=== PATIENT | male | born 1980 | race Caucasian/White ===

== ENCOUNTER 2018-06-17 15:09 | Emergency (ER) | payer MEDICAID, SELFPAY ==
[2018-06-17 15:23] VITALS: BP 129/81; PULSE 88; RESP 18; TEMP 36.7; O2SAT 98
--- NOTE | 2018-06-17 16:05 | DI.RAD_ITS ---
SYMPTOMS/DIAGNOSIS: DOG BITE LEFT HAND: No foreign body or soft tissue gas is seen. The area of the dog bite is not indicated on the requisition. There is slight deformity at the base of the distal phalanx of the thumb, which may be an old deformity or could represent an acute fracture. Clinical correlation is recommended. No additional abnormalities are identified other than degenerative changes. IMPRESSION: Question of a fracture versus chronic deformity at the base of the distal phalanx of the thumb.
--- NOTE | 2018-06-17 16:06 | W.ED.GENAD ---
Discharge Plan Disposition Patient Disposition: HOME Condition: Fair Discharge Details Chief Complaint: AnimalBite Clinical Impression: Dog bite of hand Primary Care Provider: Lizandro Carl ED Provider: Martha Leon Home Meds and New Rx's Prescriptions: New amoxicillin-pot clavulanate [Augmentin] 875-125 mg tablet 1 tab PO BID Qty: 14 RF: 0 Continue atenolol 50 MG tablet 50 mg PO DAILY Qty: 90 RF: 4 fluoxetine [Prozac] 40 MG capsule 40 mg PO DAILY Qty: 90 RF: 1 lisinopril-hydrochlorothiazide 1 EACH tablet 1 tab PO DAILY RF: 0 acetaminophen-codeine [Tylenol-Codeine #3] 1 TAB tablet 1 ea PO HS Qty: 7 RF: 0 methylprednisolone 4 MG tablets,dose pack 4 mg PO DIRECTED Qty: 1 RF: 0 Discharge Instructions Instructions: Animal Bite (ED) Additional Instructions: Encourage rest, ice, elevation. Tylenol and/or ibuprofen as needed for discomfort. Please keep ring finger in a brace to help with your discomfort. Take antibiotics as prescribed. Even if symptoms improve, please take the entire course. Please follow-up with primary care within the next week for reevaluation. You will be contacted tomorrow by [facility] to discuss dog's rabies vaccination status. If you develop fever/chills, increased pain, redness, discharge or other new/worsening symptoms please seek care urgently once again. Referrals: Lizandro Carl [Primary Care Provider] - ( ) Discharge Data Discharge Date/Time-TO BE ENTERED AT DEPARTURE: 06/17/18 17:10 Medical Decision Making Patient a 37-year-old [id number] male presenting today with chief complaint of left hand.. Patient reports that, while at work, he went to pet a dog that had been jumping up and down, in attempt to help calm the dog, on the dog bit his hand. Suffered a puncture wounds to the third and fourth digits. Reports his last tetanus shot was within the last 2 years. Denies any fevers or chills. States that this occurred around 8 AM. Reports that since then he has noted increased swelling, limited range of motion and increased pain. Denies other area of injury at the time of the incident. Did not report the bite to the ulnar. Unclear if the dog is up-to-date on immunizations. They have contact information sheet for the ulnar, will contact them to find the dog's rabies vaccination status. On exam, patient does have limited range of motion. Unable to extend the digit passively without discomfort. Flexion seems palpation warmth this seems to be more from swelling. No puncture wound directly over the flexor tendon. Puncture wound is along the ulnar side of the proximal phalanx of the fourth digit. Will obtain x-rays. Patient does report that he washes out. Reports he has been drinking alcohol and does not want to have any medication. Not the patient Tylenol and ibuprofen which she declined. Dog bite was reported to health officer. 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 Given the time of night, will not have a rabies vaccine answer tonight. However, [facility] and will remained there. The kickboxing instructor was unaware that the dog had bitten the patient. Health officer will follow up with the patient in regard to rabies vaccination. I did discuss the plan should the dog not be vaccinated with the patient. He is aware that he may return here or follow-up with his primary care as instructed by health officer X-ray obtained reviewed by radiologist. The irregularity at the base of the distal phalanx of the thumb suspicious for acute fracture. No radiopaque foreign body. Discussed this finding with the patient he has not exhibited any pain in the thumb, has full range of motion and no bite near this. And I feel that this is an acute fracture of the Patient I discussed treatment options. I feel that placing him on Augmentin is appropriate at this time. He is up-to-date on tetanus. Advise close follow-up with his primary care. He was given strict return precautions. I splinted the ring finger and alirio taped to the middle finger to this. Encourage rest, ice, elevation. Advised Tylenol and/or ibuprofen as needed for discomfort. All of his questions and concerns were addressed and he is in agreement with this plan. HPI General Mode of arrival: ambulatory. Date/Time Provider Initiated Documentation: 06/17/18 15:53. Limitations to Documentation: no limitations. Information obtained by: patient and family (accompanied by ). History of Present Illness 37 year old M presents to the emergency department with the chief complaint of left ring and middle finger dog bite, described as severe, with intensity rated at 10. Quality is described as stabbing, and is localized to the left and upper extremity. Patient reports no radiation. Patient started experiencing this hour(s) (8) and it has been constant. Immobilization improves symptom(s), Movement worsens symptoms . Patient notes no other symptoms.; denies chest pain, cough, fever/chills and rash. Patient did receive the following treatments prior to arrival, none Related Data Home Medications Medication Instructions Recorded Confirmed atenolol 50 mg PO DAILY #90 tab 10/22/13 fluoxetine [Prozac] 40 mg PO DAILY #90 tab-cap 01/25/14 acetaminophen-codeine 1 ea PO HS #7 tab 10/27/14 06/07/15 [Tylenol-Codeine #3] lisinopril-hydrochlorothiazide 1 tab PO DAILY 10/27/14 06/07/15 methylprednisolone 4 mg PO DIRECTED #1 pkt 10/27/14 06/07/15 amoxicillin-pot clavulanate 1 tab PO BID #14 tab 06/17/18 [Augmentin] Previous Rx's Medication Instructions Recorded acetaminophen-codeine 1 ea PO HS #7 tab 10/27/14 [Tylenol-Codeine #3] methylprednisolone 4 mg PO DIRECTED #1 pkt 10/27/14 amoxicillin-pot clavulanate 1 tab PO BID #14 tab 06/17/18 [Augmentin] Allergies Allergy/AdvReac Type Severity Reaction Status Date / Time morphine Allergy Unknown Unverified 10/27/14 09:53 hydromorphone HCl AdvReac Severe Visual Unverified 10/27/14 09:53 [From Dilaudid] Disturbances aspirin AdvReac HEARTBURN Unverified 10/27/14 09:53 sertraline AdvReac NAUSEA Unverified 10/27/14 09:53 General Stated Complaint: AnimalBite MILTON: 4 Review of Systems Constitutional Reports as per HPI Cardiovascular Reports as per HPI Respiratory Denies cough Gastrointestinal Denies nausea and Denies vomiting Musculoskeletal Reports as per HPI, Denies numbness and Denies tingling Integumentary/Breasts Reports as per HPI Neurologic Denies numbness and Denies tingling PFSH Social History Smoking/Tobacco Use Status: Current every day Surgical History knee surgery Exam Const General: cooperative, healthy appearing, comfortable, no acute distress, well developed and well groomed Nutritional Appearance: average body habitus and well nourished Orientation: alert and awake Resp Effort & Inspection: normal respiratory effort, able to speak in complete sentences and no respiratory distress Auscultation: clear to auscultation bilaterally, no rales, no rhonchi and no wheezes Cardio Rate: regular rate Rhythm: regular rhythm Heart Sounds: S1 normal and S2 normal Skin General skin exam: no ecchymosis and no erythema Trauma: puncture (Patient has 3 puncture wounds, two on the left ring finger and one on the dorsum of the middle finger. Entirety of the two digits are swollen. limited ROM. No passive ROM pain. Pain with active flexion and extension. Is able to flex and extend against resistance at MCP, PIP and DIP. ) and other (No surrounding erythema, no discharge. Fingers are minimally warm compared to the others) Neuro General: alert and awake Cognition: normal cognition Speech: speech normal Gait: normal gait Sensory Exam: no sensory deficits noted (2 point intact on affected digits) Extrem Left upper extremity: normal capillary refill; abnormal to inspection (as above) and no cyanosis Psych Appearance: grossly normal and well kempt Mental Status: mental status grossly normal Speech and Movement: speech and movement normal Course Vital Signs Temperature 36.7 C 06/17/18 15:23 Pulse 88 06/17/18 15:23 Respiratory Rate 18 06/17/18 15:23 Blood Pressure 129/81 06/17/18 15:23 Pulse Oximetry 98 06/17/18 15:23 Temperature 36.7 C 06/17/18 15:23 Temperature Source Temporal Artery Scan 06/17/18 15:23 Pulse 88 06/17/18 15:23 Respiratory Rate 18 06/17/18 15:23 Respiratory Effort 06/17/18 15:27 Blood Pressure 129/81 06/17/18 15:23 Blood Pressure Position Sitting 06/17/18 15:23 Pulse Oximetry 98 06/17/18 15:23 Oxygen Delivery Method Room Air 06/17/18 15:23 Oxygen Flow Rate 0 06/17/18 15:23 Pain Level 10 06/17/18 15:23
--- NOTE | 2018-06-17 16:09 | ED.GENADUL_ITS ---
Discharge Plan Disposition Patient Disposition: HOME Condition: Fair Discharge Details Chief Complaint: AnimalBite Clinical Impression: Dog bite of hand Primary Care Provider: Lizandro Carl ED Provider: Martha Leon Home Meds and New Rx's Prescriptions: New amoxicillin-pot clavulanate [Augmentin] 875-125 mg tablet 1 tab PO BID Qty: 14 RF: 0 Continue atenolol 50 MG tablet 50 mg PO DAILY Qty: 90 RF: 4 fluoxetine [Prozac] 40 MG capsule 40 mg PO DAILY Qty: 90 RF: 1 lisinopril-hydrochlorothiazide 1 EACH tablet 1 tab PO DAILY RF: 0 acetaminophen-codeine [Tylenol-Codeine #3] 1 TAB tablet 1 ea PO HS Qty: 7 RF: 0 methylprednisolone 4 MG tablets,dose pack 4 mg PO DIRECTED Qty: 1 RF: 0 Discharge Instructions Instructions: Animal Bite (ED) Additional Instructions: Encourage rest, ice, elevation. Tylenol and/or ibuprofen as needed for discomfort. Please keep ring finger in a brace to help with your discomfort. Take antibiotics as prescribed. Even if symptoms improve, please take the entire course. Please follow-up with primary care within the next week for reevaluation. You will be contacted tomorrow by [facility] to discuss dog' s rabies vaccination status. If you develop fever/chills, increased pain, redness, discharge or other new/worsening symptoms please seek care urgently once again. Referrals: Lizandro Carl [Primary Care Provider] - ( ) Discharge Data Discharge Date/Time-TO BE ENTERED AT DEPARTURE: 06/17/18 17:10 Medical Decision Making Patient a 37-year-old [id number] male presenting today with chief complaint of left hand.. Patient reports that, while at work, he went to pet a dog that had been jumping up and down, in attempt to help calm the dog, on the dog bit his hand. Suffered a puncture wounds to the third and fourth digits. Reports his last tetanus shot was within the last 2 years. Denies any fevers or chills. States that this occurred around 8 AM. Reports that since then he has noted increased swelling, limited range of motion and increased pain. Denies other area of injury at the time of the incident. Did not report the bite to the ulnar. Unclear if the dog is up-to-date on immunizations. They have contact information sheet for the ulnar, will contact them to find the dog' s rabies vaccination status. On exam, patient does have limited range of motion. Unable to extend the digit passively without discomfort. Flexion seems palpation warmth this seems to be more from swelling. No puncture wound directly over the flexor tendon. Puncture wound is along the ulnar side of the proximal phalanx of the fourth digit. Will obtain x-rays. Patient does report that he washes out. Reports he has been drinking alcohol and does not want to have any medication. Not the patient Tylenol and ibuprofen which she declined. Dog bite was reported to health officer. 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 Given the time of night, will not have a rabies vaccine answer tonight. However, [facility] is in [facility] and will remained there. The weight control engineer was unaware that the dog had bitten the patient. Health officer will follow up with the patient in regard to rabies vaccination. I did discuss the plan should the dog not be vaccinated with the patient. He is aware that he may return here or follow-up with his primary care as instructed by health officer X-ray obtained reviewed by radiologist. The irregularity at the base of the distal phalanx of the thumb suspicious for acute fracture. No radiopaque foreign body. Discussed this finding with the patient he has not exhibited any pain in the thumb, has full range of motion and no bite near this. And I feel that this is an acute fracture of the Patient I discussed treatment options. I feel that placing him on Augmentin is appropriate at this time. He is up-to-date on tetanus. Advise close follow-up with his primary care. He was given strict return precautions. I splinted the ring finger and alirio taped to the middle finger to this. Encourage rest, ice, elevation. Advised Tylenol and/or ibuprofen as needed for discomfort. All of his questions and concerns were addressed and he is in agreement with this plan. HPI General Mode of arrival: ambulatory . Date/Time Provider Initiated Documentation: 06/17/18 15:53 . Limitations to Documentation: no limitations . Information obtained by: patient and family (accompanied by ) . History of Present Illness 37 year old M presents to the emergency department with the chief complaint of left ring and middle finger dog bite, described as severe, with intensity rated at 10. Quality is described as stabbing, and is localized to the left and upper extremity. Patient reports no radiation. Patient started experiencing this hour(s) (8) and it has been constant. Immobilization improves symptom(s), Movement worsens symptoms . Patient notes no other symptoms.; denies chest pain, cough, fever/chills and rash. Patient did receive the following treatments prior to arrival, none Related Data Home Medications Medication Instructions Recorded Confirmed atenolol 50 mg PO DAILY #90 tab 10/22/13 fluoxetine [Prozac] 40 mg PO DAILY #90 tab-cap 01/25/14 acetaminophen-codeine 1 ea PO HS #7 tab 10/27/14 06/07/15 [Tylenol-Codeine #3] lisinopril-hydrochlorothiazide 1 tab PO DAILY 10/27/14 06/07/15 methylprednisolone 4 mg PO DIRECTED #1 pkt 10/27/14 06/07/15 amoxicillin-pot clavulanate 1 tab PO BID #14 tab 06/17/18 [Augmentin] Previous Rx's Medication Instructions Recorded acetaminophen-codeine 1 ea PO HS #7 tab 10/27/14 [Tylenol-Codeine #3] methylprednisolone 4 mg PO DIRECTED #1 pkt 10/27/14 amoxicillin-pot clavulanate 1 tab PO BID #14 tab 06/17/18 [Augmentin] Allergies Allergy/AdvReac Type Severity Reaction Status Date / Time morphine Allergy Unknown Unverified 10/27/14 09:53 hydromorphone HCl AdvReac Severe Visual Unverified 10/27/14 09:53 [From Dilaudid] Disturbances aspirin AdvReac HEARTBURN Unverified 10/27/14 09:53 sertraline AdvReac NAUSEA Unverified 10/27/14 09:53 General Stated Complaint: AnimalBite MILTON: 4 Review of Systems Constitutional Reports as per HPI Cardiovascular Reports as per HPI Respiratory Denies cough Gastrointestinal Denies nausea and Denies vomiting Musculoskeletal Reports as per HPI, Denies numbness and Denies tingling Integumentary/Breasts Reports as per HPI Neurologic Denies numbness and Denies tingling PFSH Social History Smoking/Tobacco Use Status: Current every day Surgical History knee surgery Exam Const General: cooperative, healthy appearing, comfortable, no acute distress, well developed and well groomed Nutritional Appearance: average body habitus and well nourished Orientation: alert and awake Resp Effort & Inspection: normal respiratory effort, able to speak in complete sentences and no respiratory distress Auscultation: clear to auscultation bilaterally, no rales, no rhonchi and no wheezes Cardio Rate: regular rate Rhythm: regular rhythm Heart Sounds: S1 normal and S2 normal Skin General skin exam: no ecchymosis and no erythema Trauma: puncture (Patient has 3 puncture wounds, two on the left ring finger and one on the dorsum of the middle finger. Entirety of the two digits are swollen. limited ROM. No passive ROM pain. Pain with active flexion and extension. Is able to flex and extend against resistance at MCP, PIP and DIP. ) and other (No surrounding erythema, no discharge. Fingers are minimally warm compared to the others) Neuro General: alert and awake Cognition: normal cognition Speech: speech normal Gait: normal gait Sensory Exam: no sensory deficits noted (2 point intact on affected digits) Extrem Left upper extremity: normal capillary refill; abnormal to inspection (as above ) and no cyanosis Psych Appearance: grossly normal and well kempt Mental Status: mental status grossly normal Speech and Movement: speech and movement normal Course Vital Signs Temperature 36.7 C 06/17/18 15:23 Pulse 88 06/17/18 15:23 Respiratory Rate 18 06/17/18 15:23 Blood Pressure 129/81 06/17/18 15:23 Pulse Oximetry 98 06/17/18 15:23 Temperature 36.7 C 06/17/18 15:23 Temperature Source Temporal Artery Scan 06/17/18 15:23 Pulse 88 06/17/18 15:23 Respiratory Rate 18 06/17/18 15:23 Respiratory Effort 06/17/18 15:27 Blood Pressure 129/81 06/17/18 15:23 Blood Pressure Position Sitting 06/17/18 15:23 Pulse Oximetry 98 06/17/18 15:23 Oxygen Delivery Method Room Air 06/17/18 15:23 Oxygen Flow Rate 0 06/17/18 15:23 Pain Level 10 06/17/18 15:23
--- NOTE | 2018-06-17 16:53 | DI.VRAD_ITS ---
EXAM: XR Left Hand Complete, 3 or more Views EXAM DATE/TIME: 06/17/2018 4:36 PM CLINICAL HISTORY: 37 years old, male; Signs and symptoms; Other: Dog bite TECHNIQUE: XR Left hand 3 or more views. COMPARISON: No relevant prior studies available. FINDINGS: Bones/joints: There is irregularity at the base of distal phalanx of the thumb. Soft tissues: No radiopaque foreign body. Mild soft tissue swelling of the thumb. IMPRESSION: 1. Irregularity at the base of the distal phalanx of the thumb suspicious for acute fracture. 2. No radiopaque foreign body. Dictated and Authenticated by: Jesse Ramirez MD. Ordering:MARIA LUZ HAYES MD
[2018-06-17] MEDS: Amoxicillin 875/Clav. 125 TAB PO (17:15)
[2018-06-17 17:24] VITALS: BP 129/81; PULSE 88; RESP 18; TEMP 36.7; O2SAT 98
--- NOTE | 2018-06-18 18:19 | NUR.NOTE ---
Nursing Note: Spoke with [facility] Officer for [place]. She was given the information and will follow up on it. Animal Bite Report form faxed to [facility]. Sugey Pham [phone]
== END 2018-06-17 17:10 | disposition home or self-care (01) ==
PROVIDERS: Emergency Provider Physician Assistant; PCP Specialist/Technologist Athletic Trainer
DX: S61.255A Open bite of left ring finger without damage to nail, initial encounter (principal); S61.253A Open bite of left middle finger without damage to nail, initial encounter; W54.0XXA Bitten by dog, initial encounter; I10 Essential (primary) hypertension
CPT/HCPCS: 29130; 99283; 73130

== ENCOUNTER 2018-09-20 16:35 | Emergency (ER) | payer MEDICAID, SELFPAY ==
[2018-09-20 17:20] VITALS: BP 129/94; PULSE 72; RESP 16; TEMP 37; O2SAT 98
[2018-09-20] MEDS: Lidocaine/Epinephri/Tetracaine Topical Gel 3 ML TP (17:20)
--- NOTE | 2018-09-20 18:29 | W.ED.GENAD ---
Discharge Plan Disposition Patient Disposition: HOME Discharge Details Chief Complaint: Laceration Clinical Impression: Laceration of hand, left Reason For Visit: left hand laceration Primary Care Provider: Lizandro Carl ED Provider: Krishna Canales Home Meds and New Rx's Prescriptions: Continued atenolol 50 MG tablet 50 mg PO DAILY Qty: 90 RF: 4 fluoxetine [Prozac] 40 MG capsule 40 mg PO DAILY Qty: 90 RF: 1 lisinopril-hydrochlorothiazide 1 EACH tablet 1 tab PO DAILY RF: 0 No Action hydrochlorothiazide 12.5 mg tablet 12.5 mg PO DAILY RF: 0 bupropion HCl [Wellbutrin SR] 150 mg tablet sustained-release 12 hr 150 mg PO DAILY RF: 0 Discharge Instructions Instructions: Laceration (ED) Additional Instructions: Please keep dressing intact for the next 3 days. Change dressing and apply topical [id number] antibotic (like neosporin) daily thereafter and monitor for signs of infection. NO USE OF LEFT HAND UNTIL CLEARED. Please follow-up with orthopedics for reassessment. Call on Saturday. Sutures will need to be removed in about 12 days. Return to the ER sooner for any worsening or new concerning symptoms. Referrals: Dariusz Morris MD [ [facility] STAFF PHYSICIAN] - Discharge Data Discharge Date/Time-TO BE ENTERED AT DEPARTURE: 09/20/18 18:31 Medical Decision Making 37-year-old male here with left hand palmar laceration over fourth and fifth MCPs. Flexor tendon strength intact both FDP and FDS. Sensation intact including two-point discrimination. Patient did have some clicking on flexion of the fifth digit over MCP and significant discomfort when he extended his fifth digit at the MCP. Wound irrigated with copious sterile saline. Wound explored and no foreign body present. Deep structures not identified. Primary closure performed without complication. Bulky dressing applied. Last tetanus immunization 2011. Patient was advised to follow-up with orthopedics given discomfort and clicking with concern for possible partial flexor tendon tear versus injury to flexor tendon alon A1. Bulky dressing applied and patient advised to not use hand until cleared. HPI General Mode of arrival: ambulatory. Date/Time Provider Initiated Documentation: 09/20/18 17:14. Limitations to Documentation: no limitations. Information obtained by: patient. HPI Narrative: 37-year-old male here with left hand palmar laceration over fourth and fifth MCPs. Laceration occurred just prior to arrival. Patient notes he cut it on metal chimney flashing through glove. Wound has been bleeding. Laceration severe. No modifiers. Related Data Home Medications Medication Instructions Recorded Confirmed atenolol 50 mg PO DAILY #90 tab 10/22/13 09/24/18 fluoxetine [Prozac] 40 mg PO DAILY #90 tab-cap 01/25/14 09/24/18 lisinopril-hydrochlorothiazide 1 tab PO DAILY 10/27/14 09/24/18 bupropion HCl SR 150 mg tablet,12 150 mg PO DAILY 09/24/18 09/24/18 hr sustained-release hydrochlorothiazide 12.5 mg tablet 12.5 mg PO DAILY 09/24/18 09/24/18 Allergies Allergy/AdvReac Type Severity Reaction Status Date / Time morphine Allergy Unknown Unverified 09/24/18 10:12 hydromorphone HCl AdvReac Severe Visual Unverified 09/24/18 10:12 [From Dilaudid] Disturbances aspirin AdvReac HEARTBURN Unverified 09/24/18 10:12 sertraline AdvReac NAUSEA Unverified 09/24/18 10:12 General Stated Complaint: Laceration MILTON: 3 Review of Systems Integumentary/Breasts Reports wounds (Laceration noted) Neurologic Denies paresthesias [facility] Surgical History knee surgery Social History Smoking and Tabacco status: Current every day Exam Const General: cooperative Orientation: alert and awake Cardio Pulses: radial pulses present on the left 2+ Skin Wounds: wounds noted (laceration as noted below) Extrem Other: left hand 2cm palmar laceration over fourth and fifth MCPs palmar, clicking noted with flexion, distal sensation 2pt discrimination intact Course Vital Signs Temperature 37 C 09/20/18 17:20 Pulse 72 09/20/18 17:20 Respiratory Rate 16 09/20/18 17:20 Blood Pressure 129/94 H 09/20/18 17:20 Pulse Oximetry 98 09/20/18 17:20 Temperature 37 C 09/20/18 17:20 Temperature Source Skin 09/20/18 17:20 Pulse 72 09/20/18 17:20 Respiratory Rate 16 01/26/19 17:20 Respiratory Effort Non-Labored 09/20/18 17:20 Blood Pressure 129/94 H 09/20/18 17:20 Blood Pressure Position Sitting 09/20/18 17:20 Pulse Oximetry 98 09/20/18 17:20 Oxygen Delivery Method Room Air 09/20/18 17:20 Oxygen Flow Rate 0 09/20/18 17:20 Pain Level 3 09/20/18 17:20 Procedures Laceration Laceration 1: Site: hand Side (If applicable): left Size (cm): 2 Description: linear and irregular Depth: simple, single layer Local Anesthetic: other anesthetic (LET) Pre-repair: wound explored, irrigated extensively and deep structures intact Skin layer closed with: other (prolene) Size (cm): 5-0 Number of sutures: 5
--- NOTE | 2018-09-20 18:33 | ED.GENADUL_ITS ---
Discharge Plan Disposition Patient Disposition: HOME Discharge Details Chief Complaint: Laceration Clinical Impression: Laceration of hand, left Reason For Visit: left hand laceration Primary Care Provider: Lizandro Carl ED Provider: Krishna Canales Home Meds and New Rx's Prescriptions: Continued atenolol 50 MG tablet 50 mg PO DAILY Qty: 90 RF: 4 fluoxetine [Prozac] 40 MG capsule 40 mg PO DAILY Qty: 90 RF: 1 lisinopril-hydrochlorothiazide 1 EACH tablet 1 tab PO DAILY RF: 0 No Action hydrochlorothiazide 12.5 mg tablet 12.5 mg PO DAILY RF: 0 bupropion HCl [Wellbutrin SR] 150 mg tablet sustained-release 12 hr 150 mg PO DAILY RF: 0 Discharge Instructions Instructions: Laceration (ED) Additional Instructions: Please keep dressing intact for the next 3 days. Change dressing and apply top ical [id number] antibotic (like neosporin) daily thereafter and monitor for signs of infection. NO USE OF LEFT HAND UNTIL CLEARED. Please follow-up with orthopedics for reassessment. Call on Saturday. Sutures will need to be removed in about 12 days. Return to the ER sooner for any worsening or new concerning symptoms. Referrals: Dariusz Morris MD [ [facility] STAFF PHYSICIAN] - Discharge Data Discharge Date/Time-TO BE ENTERED AT DEPARTURE: 09/20/18 18:31 Medical Decision Making 37-year-old male here with left hand palmar laceration over fourth and fifth MCPs. Flexor tendon strength intact both FDP and FDS. Sensation intact including two-point discrimination. Patient did have some clicking on flexion of the fifth digit over MCP and significant discomfort when he extended his fifth digit at the MCP. Wound irrigated with copious sterile saline. Wound explored and no foreign body present. Deep structures not identified. Primary closure performed without complication. Bulky dressing applied. Last tetanus immunization 2011. Patient was advised to follow-up with orthopedics given discomfort and clicking with concern for possible partial flexor tendon tear versus injury to flexor tendon alon A1. Bulky dressing applied and patient advised to not use hand until cleared. HPI General Mode of arrival: ambulatory . Date/Time Provider Initiated Documentation: 09/20/18 17:14 . Limitations to Documentation: no limitations . Information obtained by: patient . HPI Narrative: 37-year-old male here with left hand palmar laceration over fourth and fifth MCPs. Laceration occurred just prior to arrival. Patient notes he cut it on metal chimney flashing through glove. Wound has been bleeding. Laceration severe. No modifiers. Related Data Home Medications Medication Instructions Recorded Confirmed atenolol 50 mg PO DAILY #90 tab 10/22/13 09/24/18 fluoxetine [Prozac] 40 mg PO DAILY #90 tab-cap 01/25/14 09/24/18 lisinopril-hydrochlorothiazide 1 tab PO DAILY 10/27/14 09/24/18 bupropion HCl SR 150 mg tablet,12 150 mg PO DAILY 09/24/18 09/24/18 hr sustained-release hydrochlorothiazide 12.5 mg tablet 12.5 mg PO DAILY 09/24/18 09/24/18 Allergies Allergy/AdvReac Type Severity Reaction Status Date / Time morphine Allergy Unknown Unverified 09/24/18 10:12 hydromorphone HCl AdvReac Severe Visual Unverified 09/24/18 10:12 [From Dilaudid] Disturbances aspirin AdvReac HEARTBURN Unverified 09/24/18 10:12 sertraline AdvReac NAUSEA Unverified 09/24/18 10:12 General Stated Complaint: Laceration MILTON: 3 Review of Systems Integumentary/Breasts Reports wounds (Laceration noted) Neurologic Denies paresthesias [facility] Surgical History knee surgery Social History Smoking and Tabacco status: Current every day Exam Const General: cooperative Orientation: alert and awake Cardio Pulses: radial pulses present on the left 2+ Skin Wounds: wounds noted (laceration as noted below) Extrem Other: left hand 2cm palmar laceration over fourth and fifth MCPs palmar, clicking noted with flexion, distal sensation 2pt discrimination intact Course Vital Signs Temperature 37 C 09/20/18 17:20 Pulse 72 09/20/18 17:20 Respiratory Rate 16 09/20/18 17:20 Blood Pressure 129/94 H 09/20/18 17:20 Pulse Oximetry 98 09/20/18 17:20 Temperature 37 C 09/20/18 17:20 Temperature Source Skin 09/20/18 17:20 Pulse 72 09/20/18 17:20 Respiratory Rate 16 09/20/18 17:20 Respiratory Effort Non-Labored 09/20/18 17:20 Blood Pressure 129/94 H 09/20/18 17:20 Blood Pressure Position Sitting 09/20/18 17:20 Pulse Oximetry 98 09/20/18 17:20 Oxygen Delivery Method Room Air 09/20/18 17:20 Oxygen Flow Rate 0 09/20/18 17:20 Pain Level 3 09/20/18 17:20 Procedures Laceration Laceration 1: Site: hand Side (If applicable): left Size (cm): 2 Description: linear and irregular Depth: simple, single layer Local Anesthetic: other anesthetic (LET) Pre-repair: wound explored, irrigated extensively and deep structures intact Skin layer closed with: other (prolene) Size (cm): 5-0 Number of sutures: 5
== END 2018-09-20 18:31 | disposition home or self-care (01) ==
PROVIDERS: Emergency Provider Student in an Organized Health Care Education/Training Program; PCP Specialist/Technologist Athletic Trainer
DX: S61.412A Laceration without foreign body of left hand, initial encounter (principal); W26.8XXA Contact with other sharp object(s), not elsewhere classified, initial encounter; I10 Essential (primary) hypertension
CPT/HCPCS: 12001

== ENCOUNTER 2019-01-27 02:05 | Outpatient (CLI) | payer MEDICAID, SELFPAY ==
[2019-01-27 11:07] LABS: Anion Gap 8.4 mmol/L (3-11); BUN 13 mg/dL (7-18); CO2 28.6 mmol/L (21.0-32.0); Calcium 9.2 mg/dL (8.5-10.1); Chloride 104 mmol/L (98-107); Glucose 110 mg/dL (70-100); Potassium 4.5 mmol/L (3.5-5.1); Sodium 141 mmol/L (136-145)
== END 2019-01-27 02:25 ==
PROVIDERS: PCP Specialist/Technologist Athletic Trainer; Visit Provider Specialist/Technologist Athletic Trainer
DX: I10 Essential (primary) hypertension (principal)
CPT/HCPCS: 36415; 80048

== ENCOUNTER 2019-02-06 08:37 | Emergency (ER) | payer MEDICAID, SELFPAY ==
[2019-02-06 08:41] VITALS: BP 143/95; PULSE 77; RESP 16; TEMP 36.6; O2SAT 100
--- NOTE | 2019-02-06 09:07 | ED.GENADUL_ITS ---
Discharge Plan Disposition Patient Disposition: HOME Condition: Improving Discharge Details Chief Complaint: Abd Prob Clinical Impression: Diverticulitis Primary Care Provider: Lizandro Carl ED Provider: Santhosh Rivera Home Meds and New Rx's Prescriptions: New ciprofloxacin HCl 500 mg tablet 500 mg PO BID Qty: 14 RF: 0 metronidazole 500 mg tablet 500 mg PO TID 7 Days Qty: 21 RF: 0 Continued hydrochlorothiazide 12.5 mg tablet 12.5 mg PO DAILY RF: 0 bupropion HCl [Wellbutrin SR] 150 mg tablet sustained-release 12 hr 150 mg PO DAILY RF: 0 atenolol 50 MG tablet 50 mg PO DAILY Qty: 90 RF: 4 fluoxetine [Prozac] 40 MG capsule 40 mg PO DAILY Qty: 90 RF: 1 lisinopril 20 mg Tablet 20 mg PO DAILY RF: 0 Discharge Instructions Instructions: Diverticulitis (ED), Diverticulitis Diet (ED) Additional Instructions: Return immediately to the emergency department for new or worsening symptoms otherwise follow-up with your primary care provider as needed for reassessment or if not improving Referrals: Lizandro Carl [Primary Care Provider] - 1 week ( for reassessment or if not improving) Discharge Data Discharge Date/Time-TO BE ENTERED AT DEPARTURE: 02/06/19 12:00 Medical Decision Making Patient presenting to the emergency department with chief complaint of abdominal pain that started 3 days ago and is worsening. Physical exam shows tenderness to right and left lower quadrants otherwise soft abdomen with normal active bowel sounds. Plan to do labs and CT imaging. Pending results patient given Zofran and morphine. Review of labs show leukocytosis and otherwise nondiagnostic CMP. Review of CT imaging and speak with radiologist reveals diverticulitis. Patient does not have abscess or perforation so placed up on Cipro Flagyl. Pending discharge patient continued to have some abdominal discomfort so was given ketorolac. Return precautions discussed. After discussion of diagnosis and plan of care patient has no further needs, questions, or concerns and states clear understanding to return to the emergency department for any worsening symptoms. HPI General Mode of arrival: ambulatory . Date/Time Provider Initiated Documentation: 02/06/19 08:39 . Limitations to Documentation: no limitations . Information obtained by: patient, family and RN notes reviewed . History of Present Illness 38 year old M presents to the emergency department with the chief complaint of Umbilical abdominal pain, described as moderate, with intensity rated at 6. Quality is described as aching and sharp, and is localized to the abdomen. Patient started experiencing this day(s) (3) and it has been constant. No exacerbating factors reported . Patient did receive the following treatments prior to arrival, none Related Data Home Medications Medication Instructions Recorded Confirmed atenolol 50 mg PO DAILY #90 tab 10/22/13 02/06/19 fluoxetine [Prozac] 40 mg PO DAILY #90 tab-cap 01/25/14 02/06/19 bupropion HCl SR 150 mg tablet,12 150 mg PO DAILY 09/24/18 02/06/19 hr sustained-release hydrochlorothiazide 12.5 mg tablet 12.5 mg PO DAILY 09/24/18 02/06/19 ciprofloxacin HCl 500 mg PO BID #14 tab 02/06/19 lisinopril 20 mg PO DAILY 02/06/19 02/06/19 metronidazole 500 mg PO TID 7 Days #21 tab 02/06/19 Previous Rx's Medication Instructions Recorded ciprofloxacin HCl 500 mg PO BID #14 tab 02/06/19 metronidazole 500 mg PO TID 7 Days #21 tab 02/06/19 Allergies Allergy/AdvReac Type Severity Reaction Status Date / Time morphine Allergy Unknown Unverified 09/24/18 10:12 hydromorphone HCl AdvReac Severe Visual Unverified 09/24/18 10:12 [From Dilaudid] Disturbances aspirin AdvReac HEARTBURN Unverified 09/24/18 10:12 sertraline AdvReac NAUSEA Unverified 09/24/18 10:12 General Stated Complaint: Abd Prob MILTON: 3 Review of Systems Constitutional Denies chills, Denies fever(s) and Denies poor appetite Cardiovascular Denies chest pain and Denies dyspnea Respiratory Denies cough and Denies dyspnea Gastrointestinal Reports as per HPI, Reports abdominal pain, Denies melena, Denies change in bowel habits, Denies constipation, Denies diarrhea, Reports nausea and Denies vomiting Genitourinary Denies hematuria, Denies difficulty urinating, Denies urinary hesitancy, Denies urinary incontinence and Denies urinary urgency Integumentary/Breasts Denies rash PFSH Surgical History knee surgery Social History Smoking/Tobacco Use Status: Current every day Tobacco Type: cigarettes Smoking cigarettes per day: 10 Alcohol Intake: current Alcohol Intake frequency: 0-2 drinks per day Alcohol type: beer Drug use: Never Substance use type: does not use Do you feel safe at home: Yes Do you feel safe in your relationship?: Yes Exam Const General: cooperative Orientation: alert, awake and oriented x3 Resp Effort & Inspection: normal respiratory effort and able to speak in complete sentences Auscultation: clear to auscultation bilaterally Cardio Rate: regular rate Rhythm: regular rhythm Heart Sounds: S1 normal and S2 normal GI Inspection: normal to inspection Palpation: soft, no hepatosplenomegaly, not firm, no guarding, no masses, no pulsatile masses, not rigid, no splenomegaly and tender in the epigastrum, in the LLQ and in the RLQ; not at McBurney's point, Vazquez's sign negative, with no rebound tenderness and Rovsing's sign negative Auscultation: normal bowel sounds Back/Spine/Pelvis Back: no CVA tenderness Neuro General: alert, awake, oriented x3, gait normal and moves all extremities Course Vital Signs Temperature 36.6 C 02/06/19 08:41 Pulse 77 02/06/19 08:41 Respiratory Rate 16 02/06/19 08:41 Blood Pressure 143/95 H 02/06/19 08:41 Pulse Oximetry 100 02/06/19 08:41 Temperature 36.6 C 02/06/19 08:41 Temperature Source Skin 02/06/19 08:41 Pulse 77 02/06/19 08:41 Respiratory Rate 16 02/06/19 08:41 Respiratory Effort Non-Labored 02/06/19 08:45 Blood Pressure 143/95 H 02/06/19 08:41 Blood Pressure Position Sitting 02/06/19 08:41 Pulse Oximetry 100 02/06/19 08:41 Oxygen Delivery Method Room Air 02/06/19 08:41 Oxygen Flow Rate 0 02/06/19 08:41 Pain Level 8 02/06/19 08:41
[2019-02-06 09:13] LABS: Abs Immature Grans 0.03 k/cumm (0.0-0.09); Absolute Eosinophil Count 0.12 k/cumm (0.0-0.7); Absolute Lymphocyte Count 1.22 k/cumm (1.2-3.4); Absolute Monocyte Count 1.11 k/cumm (0.11-0.7); Absolute Neutrophil Count 10.31 k/cumm (1.2-6.7); Basophils % 0.2; Eosinophils % 0.9; HCT 41.3 % (40.0-50.0); HGB 14.3 g/dL (13.5-17.5); Immature Grans % 0.2; Lymphocytes % 9.5; Mean Corp. HGB Concentration 34.6 g/dL (32.0-36.0); Mean Corpuscular Volume 98.3 fL (80-95); Mean Platelet Volume 9.3 fL (8.0-11.0); Monocytes % 8.7; Neutrophils % 80.5; Platelet Count 259 x1000/uL (130-400); RBC Distribution Width 12.1 % (11.8-14.1); White Blood Cell Count 12.81 k/cumm (4.4-10.8)
[2019-02-06 09:14] LABS: Absolute Basophil Count 0.03 k/cumm (0.0-0.2)
[2019-02-06] MEDS: Normal Saline 1,000 ML 500 ML IV (09:14)
[2019-02-06] MEDS: Ondansetron 4 MG/2 ML VIAL IVP (09:15)
[2019-02-06 09:28] LABS: ALT 22 U/L (12-78); AST 18 U/L (15-37); Albumin 3.6 g/dL (3.4-5.0); Alkaline Phosphatase 85 U/L (46-116); Anion Gap 12.4 mmol/L (3-11); BUN 9 mg/dL (7-18); Bilirubin, Total 0.8 mg/dL (0.2-1.0); CO2 25.6 mmol/L (21.0-32.0); CREATININE 1.06 mg/dL (0.70-1.30); Calcium 9.4 mg/dL (8.5-10.1); Chloride 101 mmol/L (98-107); Glucose 112 mg/dL (70-100); Lipase 87 U/L (73-393); Potassium 4.2 mmol/L (3.5-5.1); Sodium 139 mmol/L (136-145); Total Protein 7.7 g/dL (6.4-8.2)
[2019-02-06] MEDS: Omnipaque 350 MG/ML 50 ML BTL IJ (10:36)
[2019-02-06] MEDS: Omnipaque 350 MG/ML 100 ML BTL IJ (10:36)
[2019-02-06] MEDS: Breeza Beverage 473 ML BTL PO (10:37)
--- NOTE | 2019-02-06 10:40 | DI.CT_ITS ---
SYMPTOM/DIAGNOSIS: AD PAIN CT ABDOMEN AND PELVIS: Routine examination was performed. Intravenous and oral contrast was administered. Comparison is 11/16/16 The visualized lung bases are clear There is no evidence of an hepatic mass. The portal, superior mesenteric and splenic veins are patent. The gallbladder is negative. There is no biliary ductal dilatation present. The pancreas and spleen are unremarkable as are the adrenal glands. The kidneys show normal and symmetric enhancement. There is scarring of the right kidney. No evidence of a solid renal mass or obstruction is identified. The urinary bladder is intact. The reproductive organs are unremarkable. The abdominal aorta is of normal caliber. No significant abdominal or pelvic adenopathy is seen. There is no pneumoperitoneum. There is diverticulosis seen in the sigmoid colon. There is bowel wall thickening seen in the proximal sigmoid colon with pericolonic inflammatory changes consistent with acute diverticulitis. There is a trace amount of free fluid in the pelvis. No pneumoperitoneum is seen. The remainder of the bowel is unremarkable. No findings to suggest an acute appendicitis are present. Normal appendix is seen in the right lower quadrant. Degenerative changes are seen in the spine. IMPRESSION: Findings consistent with acute sigmoid diverticulitis. No evidence of abscess or free air. The findings were discussed with the Emergency Department on the date of the examination.
[2019-02-06] MEDS: Ketorolac 30 MG/ML VIAL (11:02)
[2019-02-06] MEDS: Ciprofloxacin 500 MG TAB PO (11:19)
[2019-02-06] MEDS: metroNIDAZOLE 500 MG TAB PO (11:19)
[2019-02-06 11:21] LABS: Bilirubin Negative (Negative); Blood Negative (Negative); Clarity Clear; Glucose Negative (Negative); Ketones Negative (Negative); Leukocyte Esterase Negative (Negative); Nitrite Negative (Negative); Specific Gravity 1.015 (1.005-1.025); Urobilinogen 0.2 EU/dL (Up TO 0.2); pH 5.5 (5-8)
[2019-02-06 12:08] VITALS: BP 141/96; PULSE 74; RESP 16; TEMP 36.6; O2SAT 100
== END 2019-02-06 12:00 | disposition home or self-care (01) ==
PROVIDERS: Emergency Provider Nurse Practitioner Family; PCP Specialist/Technologist Athletic Trainer
DX: K57.30 Diverticulosis of large intestine without perforation or abscess without bleeding (principal); D72.9 Disorder of white blood cells, unspecified
CPT/HCPCS: 36415; 80053; 83690; 96361; 96374; 96375; 96376; 99285; 74177; 81003; 85025; 99284; J1885; J2405; J3490; Q9967

== ENCOUNTER 2019-05-19 09:19 | Emergency (ER) | payer MEDICAID, SELFPAY ==
[2019-05-19 09:26] VITALS: BP 167/105; PULSE 85; RESP 18; TEMP 36.3; O2SAT 98
[2019-05-19 09:30] VITALS: RESP 14
--- NOTE | 2019-05-19 09:35 | ED.GENADUL_ITS ---
Discharge Plan Disposition Patient Disposition: HOME Condition: Stable Discharge Details Chief Complaint: GenMedical Clinical Impression: Right-sided chest wall pain Primary Care Provider: Lizandro Carl ED Provider: Niki Nice Home Meds and New Rx's Prescriptions: New lidocaine [Lidoderm] 5 % adhesive patch,medicated 1 patch TP DAILY Qty: 15 RF: 0 methocarbamol [Robaxin-750] 750 mg tablet 750 mg PO QID PRN (Reason: pain) Qty: 14 RF: 0 Continued hydrochlorothiazide 12.5 mg tablet 12.5 mg PO DAILY RF: 0 bupropion HCl [Wellbutrin SR] 150 mg tablet sustained-release 12 hr 150 mg PO DAILY RF: 0 atenolol 50 MG tablet 50 mg PO DAILY Qty: 90 RF: 4 fluoxetine [Prozac] 40 MG capsule 40 mg PO DAILY Qty: 90 RF: 1 lisinopril 20 mg Tablet 20 mg PO DAILY RF: 0 ciprofloxacin HCl 500 mg tablet 500 mg PO BID Qty: 14 RF: 0 Prilosec OTC 20 mg Tablet,Delayed Release (Dr/Ec) 20 mg PO RF: 0 Discharge Instructions Instructions: Chest Wall Pain (ED) Additional Instructions: Alternate ice and heat to the affected area several times daily for 20 minutes at a time. Alternate Tylenol and Motrin as needed and directed for pain. Use the Lidoderm patch as needed and directed. Take the muscle relaxers as needed and directed. Limit heavy lifting, pushing, pulling or carrying more than 20 pounds for the next week. Follow-up with your primary care doctor next week for reevaluation. Return to the emergency department if you develop any worsening or new concerning symptoms. Stand Alone Forms: Work Release Discharge Data Discharge Date/Time-TO BE ENTERED AT DEPARTURE: 05/19/19 11:39 Discharge Physician: Niki Nice Medical Decision Making 38-year-old male with history of alcohol abuse, hypertension, anxiety who presents with right-sided lower rib and back pain for the past 3 weeks that is worse with movement and deep breath. Denies injury, fever, anterior chest pain or shortness of breath. BP hypertensive. Normal heart rate and oxygen saturation. Patient has tenderness palpation of his right lower ribs. Lungs clear to auscultation. EKG noted a rate of 69, sinus, T wave inversion in lead III, no acute ST ische liam changes. Suspect most likely muscle strain/sprain. There is no rash and area is tender to palpation, so doubt shingles. Presentation does not appear consistent with PE but with history of smoking and age, and that symptoms are worsening, will check screening labs and CT chest. Labs and imaging reviewed and unremarkable. Patient states his symptoms are only slightly better. He was offered muscle relaxer but declines. He is advised to rest, alternate ice and heat, Tylenol and Motrin. We will send home with Lidoderm patch and Robaxin. Pt is advised to follow-up with his primary care doctor for evaluation and to return here at any time if worse. Medical Records Medical records reviewed: Yes I reviewed the patient's medical records. Lab Data Lab results reviewed: Yes I reviewed the patient's lab results. Labs: Laboratory Tests Range/Units 05/19/19 05/19/19 05/19/19 10:10 10:10 10:10 WBC (4.4-10.8) k/cumm 5.94 RBC (4.50-6.00) m/cumm 4.69 Hgb (13.5-17.5) g/dL 15.8 Hct (40.0-50.0) % 45.7 MCV (80-95) fL 97.4 H MCH (27.0-33.0) pg 33.7 H MCHC (32.0-36.0) g/dL 34.6 RDW (11.8-14.1) % 12.6 Plt Count (130-400) x1000/uL 264 MPV (8.0-11.0) fL 9.3 Immature Gran % 0.2 Neutrophils % 59.1 Lymphocytes % 20.7 Monocytes % 14.1 Eosinophils % 5.4 Basophils % 0.5 Absolute Neutrophils (1.2-6.7) k/cumm 3.51 Absolute Lymphocytes (1.2-3.4) k/cumm 1.23 Absolute Monocytes (0.11-0.7) k/cumm 0.84 H Absolute Eosinophils (0.0-0.7) k/cumm 0.32 Absolute Basophils (0.0-0.2) k/cumm 0.03 Sodium (136-145) mmol/L 136 Potassium (3.5-5.1) mmol/L 4.6 Chloride (98-107) mmol/L 101 Carbon Dioxide (21.0-32.0) mmol/L 26.6 Anion Gap (3-11) mmol/L 8.4 BUN (7-18) mg/dL 12 Creatinine (0.70-1.30) mg/dL 1.21 Estimated GFR/1.73 m2 (mL/min/1.73m2) >= 60.00 Glucose (70-100) mg/dL 129 H Calcium (8.5-10.1) mg/dL 9.2 Magnesium (1.8-2.4) mg/dL 1.9 Total Bilirubin (0.2-1.0) mg/dL 0.5 AST (15-37) U/L 30 ALT (16-63) U/L 27 Alkaline Phosphatase (46-116) U/L 104 Troponin I (0.00-0.06) ng/mL < 0.05 Total Protein (6.4-8.2) g/dL 8.0 Albumin (3.4-5.0) g/dL 3.6 Lipase (73-393) U/L 103 ECG Data Attestation: I personally reviewed and interpreted this ECG (s) as follows: Interpretation: Rate of 64, sinus, peaked T waves. No acute ST elevation or depression. T wave inversion in lead III. No acute change from previous EKG. DE 130. QTc 437. QRS 104. HPI General Mode of arrival: ambulatory . Date/Time Provider Initiated Documentation: 05/19/19 09:22 . Limitations to Documentation: no limitations . Information obtained by: patient . HPI Narrative: Patient is a 38-year-old male with a history of hypertension, depression, daily alcohol use, and chronic tobacco smoker who presents with right-sided rib and back pain for the past 3 weeks that is worse with movement and deep breath. 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 He states over the past few days the pain is now radiated to his back. He does admit to a chronic dry cough. He states he saw his primary care doctor for this on May 11 and was told he had likely had a muscle strain or bruise and was advised to alternate ice and heat, Tylenol and Motrin but he states initially this was helping but now symptoms are worse. He denies any known fever, anterior chest pain, nausea, vomiting, recent travel, recent surgery or leg pain or swelling. Related Data Home Medications Medication Instructions Recorded Confirmed atenolol 50 mg PO DAILY #90 tab 10/22/13 05/19/19 fluoxetine [Prozac] 40 mg PO DAILY #90 tab-cap 01/25/14 05/19/19 bupropion HCl 150 mg tablet,12 hr 150 mg PO DAILY 09/24/18 05/19/19 sustained-release hydrochlorothiazide 12.5 mg tablet 12.5 mg PO DAILY 09/24/18 05/19/19 ciprofloxacin HCl 500 mg PO BID #14 tab 02/06/19 lisinopril 20 mg PO DAILY 02/06/19 05/19/19 Prilosec OTC 20 mg PO 05/19/19 lidocaine [Lidoderm] 1 patch TP DAILY #15 each 05/19/19 methocarbamol [Robaxin-750] 750 mg PO QID PRN #14 tab 05/19/19 Previous Rx's Medication Instructions Recorded ciprofloxacin HCl 500 mg PO BID #14 tab 02/06/19 lidocaine [Lidoderm] 1 patch TP DAILY #15 each 05/19/19 methocarbamol [Robaxin-750] 750 mg PO QID PRN #14 tab 05/19/19 Allergies Allergy/AdvReac Type Severity Reaction Status Date / Time morphine Allergy Unknown Unverified 05/19/19 09:30 hydromorphone HCl AdvReac Severe Visual Unverified 05/19/19 09:30 [From Dilaudid] Disturbances aspirin AdvReac HEARTBURN Unverified 05/19/19 09:30 sertraline AdvReac NAUSEA Unverified 05/19/19 09:30 General Stated Complaint: GenMedical MILTON: 3 Review of Systems Review of Systems ROS Unobtainable: All systems reviewed & are unremarkable except as noted in HPI and below Constitutional Constitutional: Reports as per HPI, Denies chills and Denies fever(s) Eyes Eyes: Denies blurry vision ENT Ears, Nose, Mouth, and Throat: Denies dizziness, Denies sore throat and Denies throat swelling Cardiovascular Cardiovascular: Denies chest pain and Denies dyspnea Respiratory Respiratory: Reports cough and Denies dyspnea Gastrointestinal Gastrointestinal: Denies abdominal pain, Denies diarrhea and Denies vomiting Genitourinary Genitourinary: Denies hematuria and Denies dysuria Musculoskeletal Musculoskeletal: Reports back pain and Denies numbness Integumentary/Breasts Skin/Breast: Denies lesions and Denies rash Neurologic Neurologic: Denies dizziness, Denies focal weakness and Denies numbness Allergic/Immunologic Allergic/Immunologic: Denies throat swelling [facility] Medical History Alcoholism (Inactive 03/01/14) siezure withdrawal Depression (Inactive 03/01/14) Hypertension (Inactive 03/01/14) Surgical History History of fusion of cervical spine (Acute) knee surgery b/l Social History (Updated 05/19/19 @ 10:20 by Niki Nice DO) Smoking/Tobacco Use Status: Current every day Tobacco Type: cigarettes Alcohol Intake: current Alcohol Intake frequency: 3 or more drinks per day Alcohol type: beer Drug use: Never Substance use type: does not use Current gender identity: male Do you feel safe at home: Yes Do you feel safe in your relationship?: Yes Exam Const General: cooperative, healthy appearing and no acute distress HENMT Head: normal to inspection Face and sinus: normal facial exam Eyes General: appearance normal, both eyes and all related structures EOM: EOM intact bilaterally Neck Neck: normal visual inspection and No submandibular swelling Lymphatic: no lymphadenopathy noted Chest Chest: normal inspection of the chest Chest/axillae images: 1. Tenderness to palpation of right anterior and lateral inferior rib cage. There is no evidence of rash, ecchymosis, edema, erythema or lesions. There is no step-off or crepitus. Resp Effort & Inspection: normal respiratory effort and able to speak in complete sentences Auscultation: clear to auscultation bilaterally Cardio Rate: regular rate Rhythm: regular rhythm GI Inspection: normal to inspection Palpation: soft, not firm, not rigid and nontender Auscultation: normal bowel sounds Back/Spine/Pelvis Thoracic/Lumbar Spine: thoracic and lumbar spine normal to inspection Skin General skin exam: no rashes or lesions noted Neuro General: alert, awake and oriented x3 Cognition: normal cognition Speech: speech normal Motor: muscle tone normal throughout Sensory Exam: no sensory deficits noted Extrem General: normal to inspection, full ROM, normal capillary refill, no calf tende rness bilaterally and no edema Psych Appearance: grossly normal Mental Status: mental status grossly normal Speech and Movement: speech and movement normal Affect: normal affect Course Vital Signs Vital signs: Vital Signs Temperature 97.3 F L 05/19/19 09:26 Pulse 85 05/19/19 09:26 Respiratory Rate 18 05/19/19 09:26 Blood Pressure 167/105 H 05/19/19 09:26 Pulse Oximetry 98 05/19/19 09:26 Temperature 97.3 F L 05/19/19 09:26 Temperature Source Skin 05/19/19 09:26 Pulse 85 05/19/19 09:26 Respiratory Rate 18 05/19/19 09:26 Blood Pressure 167/105 H 05/19/19 09:26 Blood Pressure Position Sitting 05/19/19 09:26 Pulse Oximetry 98 05/19/19 09:26 Oxygen Delivery Method Room Air 05/19/19 09:26 Oxygen Flow Rate 0 05/19/19 09:26
[2019-05-19] MEDS: Normal Saline Flush 10 ML SYR IVP (10:14)
[2019-05-19] MEDS: Ketorolac 30 MG/ML VIAL IVP (10:14)
[2019-05-19] MEDS: Normal Saline 1,000 ML 1000 ML IV (10:14)
[2019-05-19] MEDS: Lidocaine 5% Patch 1 PATCH TP (10:15)
[2019-05-19 10:18] LABS: Abs Immature Grans 0.01 k/cumm (0.0-0.09); Absolute Basophil Count 0.03 k/cumm (0.0-0.2); Absolute Eosinophil Count 0.32 k/cumm (0.0-0.7); Absolute Lymphocyte Count 1.23 k/cumm (1.2-3.4); Absolute Monocyte Count 0.84 k/cumm (0.11-0.7); Absolute Neutrophil Count 3.51 k/cumm (1.2-6.7); Basophils % 0.5; Eosinophils % 5.4; HCT 45.7 % (40.0-50.0); HGB 15.8 g/dL (13.5-17.5); Immature Grans % 0.2; Lymphocytes % 20.7; Mean Corp. HGB Concentration 34.6 g/dL (32.0-36.0); Mean Corpuscular Hemoglobin 33.7 pg (27.0-33.0); Mean Corpuscular Volume 97.4 fL (80-95); Mean Platelet Volume 9.3 fL (8.0-11.0); Monocytes % 14.1; Neutrophils % 59.1; Platelet Count 264 x1000/uL (130-400); RBC 4.69 m/cumm (4.50-6.00); RBC Distribution Width 12.6 % (11.8-14.1); White Blood Cell Count 5.94 k/cumm (4.4-10.8)
--- NOTE | 2019-05-19 10:25 | DI.CT_ITS ---
EXAM: CT CHEST PE CTA CLINICAL HISTORY: R rib/back pain, r/o PE. TECHNIQUE: The study was carried out according to the usual protocol with an intravenous administrat ion of 80 cc of Omnipaque 350. COMPARISON: CT ABDOMEN PELVIS W from 02/06/2019 FINDINGS: There is no evidence a pleural effusion. A 3 mm pleural-based nodule is identified in the right upper lobe. Regions of dependent atelectasis are noted in the right lung base. The heart is not enlarged . There is no evidence of a pericardial effusion. The aorta is unremarkable with no evidence of an aneurysm or dissection. No acute bony abnormality is seen. IMPRESSION: There is no evidence of pulmonary emboli. There is no evidence of acute cardiopulmonary disease.
[2019-05-19] MEDS: Normal Saline - Diluent 50 ML VIAL IV (10:27)
[2019-05-19] MEDS: Omnipaque 350 MG/ML 100 ML BTL IJ (10:28)
[2019-05-19 10:44] LABS: Lipase 103 U/L (73-393)
[2019-05-19 10:52] LABS: ALT 27 U/L (16-63); AST 30 U/L (15-37); Albumin 3.6 g/dL (3.4-5.0); Alkaline Phosphatase 104 U/L (46-116); Anion Gap 8.4 mmol/L (3-11); BUN 12 mg/dL (7-18); Bilirubin, Total 0.5 mg/dL (0.2-1.0); CO2 26.6 mmol/L (21.0-32.0); CREATININE 1.21 mg/dL (0.70-1.30); Calcium 9.2 mg/dL (8.5-10.1); Chloride 101 mmol/L (98-107); Glucose 129 mg/dL (70-100); Magnesium 1.9 mg/dL (1.8-2.4); Potassium 4.6 mmol/L (3.5-5.1); Sodium 136 mmol/L (136-145)
[2019-05-19 10:53] LABS: Troponin I < 0.05 ng/mL (0.00-0.06)
[2019-05-19 11:43] VITALS: BP 141/102; PULSE 71; RESP 14; TEMP 36.9; O2SAT 99
== END 2019-05-19 11:39 | disposition home or self-care (01) ==
PROVIDERS: Emergency Provider Physician Assistant; PCP Specialist/Technologist Athletic Trainer
DX: R07.81 Pleurodynia (principal); F17.210 Nicotine dependence, cigarettes, uncomplicated
CPT/HCPCS: 36415; 71275; 80053; 83690; 93005; 96361; 96374; 99285; 83735; 84484; 85025; 93010; J1885; J3490

== ENCOUNTER 2019-08-05 11:31 | Outpatient (REF) | payer OTHER, SELFPAY ==
[2019-08-05 20:37] LABS: Abs Immature Grans 0.03 k/cumm (0.0-0.09); Absolute Basophil Count 0.03 k/cumm (0.0-0.2); Absolute Eosinophil Count 0.14 k/cumm (0.0-0.7); Absolute Lymphocyte Count 1.27 k/cumm (1.2-3.4); Absolute Monocyte Count 0.73 k/cumm (0.11-0.7); Basophils % 0.5; Eosinophils % 2.3; HCT 44.2 % (40.0-50.0); HGB 15.2 g/dL (13.5-17.5); Immature Grans % 0.5; Lymphocytes % 20.5; Mean Corp. HGB Concentration 34.4 g/dL (32.0-36.0); Mean Corpuscular Hemoglobin 33.3 pg (27.0-33.0); Mean Corpuscular Volume 96.9 fL (80-95); Mean Platelet Volume 9.4 fL (8.0-11.0); Monocytes % 11.8; Neutrophils % 64.4; Platelet Count 267 x1000/uL (130-400); RBC 4.56 m/cumm (4.50-6.00)
[2019-08-05 21:33] LABS: ALT 22 U/L (16-63); AST 20 U/L (15-37); Albumin 3.9 g/dL (3.4-5.0); Alkaline Phosphatase 80 U/L (46-116); Anion Gap 10.4 mmol/L (3-11); BUN 12 mg/dL (7-18); Bilirubin, Total 0.6 mg/dL (0.2-1.0); CO2 28.6 mmol/L (21.0-32.0); Calcium 9.3 mg/dL (8.5-10.1); Calculated LDL 133 mg/dL; Chloride 98 mmol/L (98-107); Cholesterol 257 mg/dL (<200); Glucose 100 mg/dL (74-106); HDL Cholesterol 62 mg/dL (40-60); Potassium 4.7 mmol/L (3.5-5.1); Sodium 137 mmol/L (136-145); TSH 3.25 uIU/mL (0.36-3.74); Total Protein 7.8 g/dL (6.4-8.2); Triglyceride 310 mg/dL (<150)
[2019-08-06 16:21] LABS: Vitamin B12 269 pg/mL (193-986)
[2019-08-07 15:19] LABS: Folate 4.9 ng/mL (See Note)
== END 2019-08-05 11:51 ==
LOC: NCHCN 11:31
PROVIDERS: PCP Specialist/Technologist Athletic Trainer; Visit Provider Nurse Practitioner Family
DX: I10 Essential (primary) hypertension (principal); R51 Headache; F10.10 Alcohol abuse, uncomplicated; F17.200 Nicotine dependence, unspecified, uncomplicated
CPT/HCPCS: 80053; 80061; 82607; 82746; 84443; 85025

== ENCOUNTER 2019-10-13 02:34 | Outpatient (CLI) | payer OTHER, SELFPAY ==
--- NOTE | 2019-10-21 10:18 | W.HOLTRPT ---
Date of service: 10/21/19 Time of Service: 10:18 Holter Monitor Report Holter Monitor Note: The patient was monitored for a period of 1 day 21 hours and 38 minutes. Rhythm throughout was sinus. Average heart rate was 93 bpm. Minimum heart rate was 67, maximum 149 There were very rare atrial and ventricular ectopic beats. There was an 11 beat run of premature atrial contractions that occurred during sleep and was asymptomatic The patient symptoms of shortness of breath, pounding and heavy heartbeats correlated to sinus rhythm between 95 and 105 bpm
== END 2019-10-13 02:54 ==
PROVIDERS: PCP Specialist/Technologist Athletic Trainer; Visit Provider Nurse Practitioner Family
DX: R00.2 Palpitations (principal); I49.1 Atrial premature depolarization
CPT/HCPCS: 93225

== ENCOUNTER 2019-10-15 11:41 | Outpatient (CLI) | payer OTHER, SELFPAY | END 2019-10-15 12:01 | PROVIDERS: PCP Specialist/Technologist Athletic Trainer; Visit Provider Specialist/Technologist Athletic Trainer | DX: R00.2 Palpitations (principal); I49.1 Atrial premature depolarization | CPT/HCPCS: 93226 ==

== ENCOUNTER 2019-10-19 14:23 | Emergency (ER) | payer OTHER, SELFPAY ==
[2019-10-19] VITALS (13 sets, daily range): BP systolic 108–122; BP diastolic 71–95; PULSE 83–90; RESP 16–22; TEMP 37–37.2; O2SAT 95–99
--- NOTE | 2019-10-19 15:00 | DI.RAD_ITS ---
EXAM: XR CHEST 2V PA LATERAL XR CHEST 2V PA LATERAL CLINICAL HISTORY: chest pain chest pain TECHNIQUE: 2D digital imaging was performed. COMPARISON: CHEST 2 VIEWS PA,LAT from 03/01/2016 FINDINGS: The heart is not enlarged. The lungs are clear and well expanded. No pleural effusion seen. Mediastin al contours appear intact. IMPRESSION: Normal chest
[2019-10-19] MEDS: Normal Saline 1,000 ML 1000 ML IV (15:25)
[2019-10-19 15:57] LABS: Bilirubin Negative (Negative); Blood Negative (Negative); Clarity Clear (Clear); Glucose Negative (Negative); Ketones Negative (Negative); Leukocyte Esterase Negative (Negative); Nitrite Negative (Negative); Specific Gravity >= 1.030 (1.005-1.025); Urobilinogen 0.2 EU/dL (Up TO 0.2)
[2019-10-19 16:03] LABS: ALT 28 U/L (16-63); AST 34 U/L (15-37); Albumin 3.7 g/dL (3.4-5.0); Alkaline Phosphatase 70 U/L (46-116); Anion Gap 12.2 mmol/L (3-11); BUN 15 mg/dL (7-18); Bilirubin, Total 0.3 mg/dL (0.2-1.0); CO2 24.8 mmol/L (21.0-32.0); Calcium 8.7 mg/dL (8.5-10.1); Chloride 98 mmol/L (98-107); Estimated GFR 51.83 (mL/min/1.73m2); Glucose 99 mg/dL (74-106); Potassium 3.5 mmol/L (3.5-5.1); Sodium 135 mmol/L (136-145); Total Protein 7.5 g/dL (6.4-8.2)
[2019-10-19 16:04] LABS: Troponin I < 0.05 ng/Ml (<0.06)
[2019-10-19] MEDS: FAMOTIDINE 20 MG/50 ML BAG 200 MG IVPB (16:04)
[2019-10-19] MEDS: Prochlorperazine 10 MG/2 ML VIAL IVP (16:04)
[2019-10-19 16:05] LABS: Lipase 248 U/L (73-393); Magnesium 2.1 mg/dL (1.8-2.4)
[2019-10-19 16:09] LABS: Bacteria Few HPF (Negative); C & S Indicated? Yes; Crystals Negative HPF (Negative); Epithelial Cells Rare HPF (Negative); Mucus Heavy (Negative); RBC 0-2 HPF (0-2)
--- NOTE | 2019-10-19 16:17 | ED.GENADUL_ITS ---
Discharge Plan Disposition Patient Disposition: HOME Condition: Stable Discharge Details Chief Complaint: Chest Pain Clinical Impression: Chest pain, Acute dehydration Primary Care Provider: Shalini Zarate ED Provider: Neema Gutiérrez Home Meds and New Rx's Prescriptions: No Action hydrochlorothiazide 12.5 mg tablet 12.5 mg PO DAILY RF: 0 bupropion HCl [Wellbutrin SR] 150 mg tablet sustained-release 12 hr 150 mg PO DAILY RF: 0 atenolol 50 MG tablet 50 mg PO DAILY Qty: 90 RF: 4 fluoxetine [Prozac] 40 MG capsule 40 mg PO DAILY Qty: 90 RF: 1 lisinopril 20 mg Tablet 20 mg PO DAILY RF: 0 Prilosec OTC 20 mg Tablet,Delayed Release (Dr/Ec) 20 mg PO RF: 0 Discharge Instructions Instructions: Chest Pain (ED), Dehydration (ED) Additional Instructions: Drink plenty of water. Follow-up promptly with your primary care doctor. You refuse any additional labs or admission to the hospital at this time. Please stop drinking alcohol daily. Return immediately for any worsening, concerns or alarming symptoms as discussed Discharge Data Discharge Date/Time-TO BE ENTERED AT DEPARTURE: 10/19/19 16:58 Medical Decision Making This is a 38-year-old patient presenting to the emergency room for complaints of chest pain bilaterally across the chest with radiation to the upper arm on the left. Patient reports tingling in his arms and legs, palpitations, sweating and nausea. Patient presents appearing sweaty, with normal vital signs. Patient reports he has had several episodes of this recently. Patient reports he had a Holter monitor this week for similar complaints. Patient dropped the Holter monitor off for analysis 2 days ago and has not heard back on results. Patient reports this is very similar to the previous episodes he has been experiencing however this is slightly stronger feeling and lasting longer than typical. Patients medical history includes alcoholism, depression and hypertension. Patient reports compliance with his medications. He does admit to drinking at least 9 beers daily. Patient reports he is otherwise a very active person who most recently is finding that he is more fatigued with his daily activities. Patient reports drinking plenty of water. Patient denies dizziness or lightheadedness at this time. Patient reports no obvious precipitating events prior to his episodes of chest pain and palpitations. No shortness of breath currently. Does admit to episodes of PAREDES. Reports dry heaving this morning. No associated diarrhea. Denies upper respiratory symptoms. Denies fever or chills. Initial EKG reveals a heart rate of 88 with sinus rhythm. T wave inversion noted in lead III. No ST elevation DE present. This was reviewed with Niki Nice. No change compared to previous EKG on 05/19/2019 Patient's his initial labs revealed no associated leukocytosis, normal d-dimer initial troponin normal. After initial labs patient's heart score is calculated to be 1. Review of patient's Holter monitor report reveals: Date of service: 10/21/19 Time of Service: 10:18 Holter Monitor Report Holter Monitor Note: The patient was monitored for a period of 1 day 21 hours and 38 minutes. Rhythm throughout was sinus. Average heart rate was 93 bpm. Minimum heart rate was 67, maximum 149 There were very rare atrial and ventricular ectopic beats. There was an 11 beat run of premature atrial contractions that occurred during sleep and was asymptomatic The patient symptoms of shortness of breath, pounding and heavy heartbeats correlated to sinus rhythm between 95 and 105 bpm Patient provided IV fluids. He reports he feels entirely improved at this time. Patient is requesting discharge home at this time. I have advised this patient that his work-up is not entirely completed. I have recommended he stay for a second troponin and consider admission to the hospital for stress testing. Patient declines second troponin and admission to the hospital at this time. Patient would prefer to follow-up with his outpatient provider. Patient is aware the risks involved in not completing his cardiac evaluation, not limited to but is including the possibility of . I have also encouraged patient to stop drinking. Patient reports his understanding. 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 Patient's vital signs remained stable throughout his visit. Again patient requesting discharge home. I have recommended prompt follow-up with his primary care doctor as he does not want to stay for the remainder of his evaluation. Patient is competent to make decisions at this time. Patient is accompanied by his . The patient was stable and requested discharge. Prior to discharge, my usual and customary return precautions were reviewed with the patient - this included follow-up instructions and reasons to return to the Emergency Department if conditions worsens, does not improve as expected, or other new concerns arise. HPI General Date/Time Provider Initiated Documentation: 10/19/19 14:55 . HPI Narrative: Is a 38-year-old patient with a history of alcoholism, depression and hypertension presenting to the emergency room today for complaints of chest pain across bilateral chest into the upper arms bilaterally. Patient reports some tingling in his arms and legs. Patient reports nausea with dry heaving intermittently. Patient does report feeling short of breath today, anxious and sensing palpita tions. Patient reports mild lightheadedness. Patient denies abdominal pain or back pain. Patient does report he drinks approximately 9 beers daily does smoke cigarettes and marijuana. Patient is concerned due to chest pain which developed today. Patient did have a Holter monitor earlier this week for similar sensations. Denies fever, chills. Denies upper respiratory symptoms recently. Denies new cough. Patient does report 3 months of dry heaving intermittently. Patient reports he is otherwise active daily. Denies any swelling in his legs. Related Data Home Medications Medication Instructions Recorded Confirmed atenolol 50 mg PO DAILY #90 tab 10/22/13 10/19/19 fluoxetine [Prozac] 40 mg PO DAILY #90 tab-cap 01/25/14 10/19/19 bupropion HCl 150 mg tablet,12 hr 150 mg PO DAILY 09/24/18 10/19/19 sustained-release hydrochlorothiazide 12.5 mg tablet 12.5 mg PO DAILY 09/24/18 10/19/19 lisinopril 20 mg PO DAILY 02/06/19 10/19/19 Prilosec OTC 20 mg PO 05/19/19 Allergies Allergy/AdvReac Type Severity Reaction Status Date / Time morphine Allergy Unknown Unverified 10/19/19 14:34 hydromorphone HCl AdvReac Severe Visual Unverified 10/19/19 14:34 [From Dilaudid] Disturbances aspirin AdvReac HEARTBURN Unverified 10/19/19 14:34 sertraline AdvReac NAUSEA Unverified 10/19/19 14:34 General Stated Complaint: Chest Pain MILTON: 2 Review of Systems All systems reviewed & are unremarkable except as noted in HPI and below Constitutional Constitutional: Denies chills, Denies fatigue, Denies fever(s), Reports headache(s) and Denies malaise ENT Ears, Nose, Mouth, and Throat: Denies otalgia, Reports headache(s) and Denies sore throat Cardiovascular Cardiovascular: Reports chest pain, Reports diaphoresis, Reports radiating jaw, neck or arm pain, Reports palpitations and Reports dyspnea on exertion Respiratory Respiratory: Denies cough and Reports dyspnea on exertion Gastrointestinal Gastrointestinal: Denies abdominal pain, Denies diarrhea, Reports nausea and Reports vomiting (Dry heaving) Genitourinary Genitourinary: Denies hematuria and Denies dysuria Neurologic Neurologic: Reports headache(s) Endocrine Endocrine: Denies fatigue and Reports palpitations [facility] Medical History 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 Flushed, clammy HENMT: Head nomocephalic, normal to inspection. Atraumatic. Hearing grossly normal. External ear canal no erythema or swelling. TM normal bilaterally. Nose normal to inspection. No rhinnorhea. Normal facial exam. Oral mucosa normal. Tounge normal. Dentition normal. Normal posterior oropharynx. Uvula midline. EYES: General normal appearance. Alignment normal. Eyelids normal. Conjunctiva normal. Sclera normal. PERRL. NECK: Normal visual inspection. FROM. No lymphadenopathy. Trachea midline. No Midline tenderness. CHEST: Normal insepection of the chest. No pain with palpation of chest RESP: Normal respiratory effort. Speaking full sentences. No cough. No wheezing. No retractions. Clear to auscaltation. Breath sound equal and present bilaterally. CARDIO: No JVD. Normal PMI. Regular Rate. Regular Rhythm. Normal peripheral pulses. GI: Normal inspection of abdomen. No distension. Soft. Nontender. Bowel sounds present in all 4 quadrants. No rebound. No gaurding. MUSCULOSKELETAL: Normal Gait. FROM of all extremities. Distal neurovascularly intact. Sensation intact distally. No distal edema bilaterally SKIN: Normal. Dry. No rashes. NEURO: Alert and awake. Speech clear. PSYCH: Normal affect. Cooperative. Course Vital Signs Vital signs: Vital Signs Temperature 37 C 10/19/19 14:27 Pulse 84 10/19/19 14:27 Respiratory Rate 19 10/19/19 14:27 Blood Pressure 116/95 H 10/19/19 14:27 Pulse Oximetry 99 10/19/19 14:27 Temperature 37 C 10/19/19 14:27 Temperature Source Skin 10/19/19 14:27 Pulse 87 10/19/19 15:15 Pulse 87 10/19/19 15:20 Respiratory Rate 22 10/19/19 15:20 Respiratory Effort Incrsd Work of Breathing 10/19/19 14:35 Blood Pressure 109/71 10/19/19 15:15 Blood Pressure Mean 78 10/19/19 15:15 Pulse Oximetry 95 10/19/19 15:20 Oxygen Delivery Method Room Air 10/19/19 14:27 Oxygen Flow Rate 0 10/19/19 14:27 Pain Level 0 10/19/19 14:27 Lab/Test Results Lab/Test Results: 10/19/19 15:45 Urine - Reflex from Ua Urine Culture - Pending Laboratory Tests Range/Units 10/19/19 10/19/19 10/19/19 14:45 14:45 15:45 Sodium (136-145) mmol/L 135 L Potassium (3.5-5.1) mmol/L 3.5 Chloride (98-107) mmol/L 98 Carbon Dioxide (21.0-32.0) mmol/L 24.8 Anion Gap (3-11) mmol/L 12.2 H BUN (7-18) mg/dL 15 Creatinine (0.70-1.30) mg/dL 1.50 H Estimated GFR/1.73 m2 (mL/min/1.73m2) 51.83 Glucose (74-106) mg/dL 99 Calcium (8.5-10.1) mg/dL 8.7 Magnesium (1.8-2.4) mg/dL 2.1 Total Bilirubin (0.2-1.0) mg/dL 0.3 AST (15-37) U/L 34 ALT (16-63) U/L 28 Alkaline Phosphatase (46-116) U/L 70 Troponin I (<0.06) ng/Ml < 0.05 Total Protein (6.4-8.2) g/dL 7.5 Albumin (3.4-5.0) g/dL 3.7 Lipase (73-393) U/L 248 Urine Color (Yellow) Yellow Urine Clarity (Clear) Clear Urine pH (5-8) 6.0 Ur Specific [place] (1.005-1.025) >= 1.030 H Urine Protein (Negative) mg/dL Trace H Urine Ketones (Negative) mg/dL Negative Urine Blood (Negative) Negative Urine Nitrite (Negative) Negative Urine Bilirubin (Negative) Negative Urine Urobilinogen (Up TO 0.2) EU/dL 0.2 Ur Leukocyte Esterase (Negative) Negative Urine RBC (0-2) HPF 0-2 Urine WBC (0-5) HPF 3-5 Ur Epithelial Cells (Negative) HPF Rare Urine Crystals (Negative) HPF Negative Urine Bacteria (Negative) HPF Few Urine Casts (Negative) LPF Comment Urine Mucus (Negative) Heavy Ur Culture Indicated? Yes Urine Glucose (Negative) mg/dL Negative
[2019-10-19 16:20] LABS: D-Dimer 403 ng/mlFEU (<500)
[2019-10-19 16:26] LABS: HCT 40.1 % (40.0-50.0); HGB 14.2 g/dL (13.5-17.5); Mean Corp. HGB Concentration 35.4 g/dL (32.0-36.0); Mean Corpuscular Hemoglobin 34.4 pg (27.0-33.0); Mean Corpuscular Volume 97.1 fL (80-95); Mean Platelet Volume 8.9 fL (8.0-11.0); Platelet Count 246 x1000/uL (130-400); RBC 4.13 m/cumm (4.50-6.00); RBC Distribution Width 12.7 % (11.8-14.1)
== END 2019-10-19 16:58 | disposition home or self-care (01) ==
PROVIDERS: Emergency Provider Physician Assistant; PCP Nurse Practitioner Family
DX: R07.89 Other chest pain (principal); E86.0 Dehydration; F10.20 Alcohol dependence, uncomplicated; I10 Essential (primary) hypertension
CPT/HCPCS: 80053; 83690; 85027; 93005; 96361; 96365; 96375; 99284; 71046; 81003; 81015; 83735; 84484; 85379; 87086; 93010; J0780

== ENCOUNTER 2020-02-29 14:47 | Outpatient (REF) | payer OTHER, SELFPAY ==
[2020-02-29 19:55] LABS: Abs Immature Grans 0.01 k/cumm (0.0-0.09); Absolute Basophil Count 0.02 k/cumm (0.0-0.2); Absolute Eosinophil Count 0.09 k/cumm (0.0-0.7); Absolute Lymphocyte Count 0.91 k/cumm (1.2-3.4); Absolute Monocyte Count 0.95 k/cumm (0.11-0.7); Absolute Neutrophil Count 5.14 k/cumm (1.2-6.7); Basophils % 0.3; Eosinophils % 1.3; HCT 41.1 % (40.0-50.0); HGB 14.6 g/dL (13.5-17.5); Immature Grans % 0.1 %; Lymphocytes % 12.8; Mean Corp. HGB Concentration 35.5 g/dL (32.0-36.0); Mean Corpuscular Volume 101.2 fL (80-95); Monocytes % 13.3; Neutrophils % 72.2; Platelet Count 242 x1000/uL (130-400); RBC 4.06 m/cumm (4.50-6.00); RBC Distribution Width 12.8 % (11.8-14.1); White Blood Cell Count 7.12 k/cumm (4.4-10.8)
[2020-02-29 20:19] LABS: ALT 59 U/L (16-63); AST 77 U/L (15-37); Albumin 4.2 g/dL (3.4-5.0); Alkaline Phosphatase 84 U/L (46-116); Anion Gap 11.3 mmol/L (3-11); BUN 11 mg/dL (7-18); Bilirubin, Total 1.2 mg/dL (0.2-1.0); CO2 26.7 mmol/L (21.0-32.0); CREATININE 1.26 mg/dL (0.70-1.30); Calcium 10.2 mg/dL (8.5-10.1); Chloride 97 mmol/L (98-107); Glucose 98 mg/dL (74-106); Lipase 177 U/L (73-393); Potassium 4.6 mmol/L (3.5-5.1); Sodium 135 mmol/L (136-145); Total Protein 7.9 g/dL (6.4-8.2)
== END 2020-02-29 15:07 ==
LOC: NCHCN 14:47
PROVIDERS: PCP Nurse Practitioner Family; Visit Provider Nurse Practitioner Family
DX: R10.9 Unspecified abdominal pain (principal)
CPT/HCPCS: 80053; 83690; 85025

== ENCOUNTER 2020-04-04 13:53 | Outpatient (REF) | payer OTHER, SELFPAY ==
[2020-04-04 19:45] LABS: Iron 111 ug/dL (65-175); Total Iron Binding Capacity 275 ug/dL (250-450); Transferrin Sat 40 % (20-55)
[2020-04-04 20:11] LABS: Folate 5.7 ng/mL (8.6-20.0); TSH 2.44 uIU/mL (0.36-3.74); Vitamin B12 242 pg/mL (193-986)
[2020-04-06 09:27] LABS: DHEA Sulfate 678 ug/dL (140-484)
== END 2020-04-04 14:13 ==
LOC: NCHCN 13:53
PROVIDERS: PCP Nurse Practitioner Family; Visit Provider Nurse Practitioner Family
DX: D64.9 Anemia, unspecified (principal); I10 Essential (primary) hypertension; R11.2 Nausea with vomiting, unspecified; R10.9 Unspecified abdominal pain; K21.9 Gastro-esophageal reflux disease without esophagitis
CPT/HCPCS: 80186; 82627; 82607; 82746; 83540; 83550; 84443

== ENCOUNTER 2020-04-13 11:00 | Outpatient (REF) | payer OTHER, SELFPAY ==
[2020-04-13 21:48] LABS: Anion Gap 12.9 mmol/L (3-11); BUN 9 mg/dL (7-18); CO2 26.1 mmol/L (21.0-32.0); CREATININE 1.12 mg/dL (0.70-1.30); Calcium 9.5 mg/dL (8.5-10.1); Chloride 98 mmol/L (98-107); Glucose 110 mg/dL (74-106); Sodium 137 mmol/L (136-145)
== END 2020-04-13 11:20 ==
LOC: NCHCN 11:00
PROVIDERS: PCP Nurse Practitioner Family; Visit Provider Nurse Practitioner Family
DX: I10 Essential (primary) hypertension (principal)
CPT/HCPCS: 80048

== ENCOUNTER 2020-05-23 19:19 | Outpatient (CLI) | payer OTHER, SELFPAY ==
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
== END 2020-05-23 19:39 ==
PROVIDERS: PCP Nurse Practitioner Family; Visit Provider Nurse Practitioner Family
DX: M19.012 Primary osteoarthritis, left shoulder (principal); M25.512 Pain in left shoulder
CPT/HCPCS: 73030

== ENCOUNTER 2020-05-25 05:23 | Emergency (ER) | payer OTHER, SELFPAY ==
[2020-05-25 05:28] VITALS: BP 144/105; PULSE 85; RESP 16; TEMP 36.6; O2SAT 99
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
[2020-05-25] MEDS: Lidocaine 5% Patch 1 PATCH TP (05:42)
[2020-05-25] MEDS: HYDROcodone 5/Acetaminophen 325 TAB PO (05:42)
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
== END 2020-05-25 06:56 | disposition home or self-care (01) ==
PROVIDERS: Emergency Provider Emergency Medicine; PCP Nurse Practitioner Family
DX: S20.222A Contusion of left back wall of thorax, initial encounter (principal); V86.56XA Driver of dirt bike or motor/cross bike injured in nontraffic accident, initial encounter; I10 Essential (primary) hypertension
CPT/HCPCS: 99283; 71046; 71100

== ENCOUNTER 2020-05-27 04:55 | Outpatient (CLI) | payer OTHER, SELFPAY ==
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
== END 2020-05-27 05:15 ==
PROVIDERS: PCP Nurse Practitioner Family; Visit Provider Nurse Practitioner Family
DX: M25.512 Pain in left shoulder (principal); M19.012 Primary osteoarthritis, left shoulder
CPT/HCPCS: 73010

== ENCOUNTER 2020-09-27 16:10 | Outpatient (REF) | payer OTHER, SELFPAY ==
[2020-09-27 15:44] LABS: Anion Gap 9.3 mmol/L (3-11); BUN 10 mg/dL (7-18); CO2 28.7 mmol/L (21.0-32.0); CREATININE 1.5 mg/dL (0.70-1.30); Calcium 9.7 mg/dL (8.5-10.1); Calculated LDL 129 mg/dL (<100); Chloride 98 mmol/L (98-107); Cholesterol 215 mg/dL (<200); Estimated GFR 51.57 (mL/min/1.73m2); Glucose 120 mg/dL (74-106); HDL Cholesterol 61 mg/dL (40-60); Sodium 136 mmol/L (136-145); Triglyceride 129 mg/dL (<150)
[2020-09-27 16:40] LABS: Hemoglobin A1C 5.3 % (<5.7)
== END 2020-09-27 16:11 | disposition home or self-care (01) ==
LOC: NCHCN 16:10
PROVIDERS: PCP Nurse Practitioner Family; Visit Provider Nurse Practitioner Family
DX: Z00.00 Encounter for general adult medical examination without abnormal findings (principal); I10 Essential (primary) hypertension; F52.21 Male erectile disorder
CPT/HCPCS: 80048; 80061; 84402; 84403; 83036

== ENCOUNTER 2020-10-12 10:00 | Outpatient (REF) | payer OTHER, SELFPAY ==
[2020-10-12 16:23] LABS: Uric Acid 7.6 mg/dL (3.5-7.2)
[2020-10-12 22:06] LABS: PSA, Screening 1.5 ng/mL (0.0-2.5)
[2020-10-15 14:01] LABS: Testosterone, Free 10.5 ng/dL (4.46-17.1); Testosterone, Total 439 ng/dL (240-950)
== END 2020-10-12 10:01 | disposition home or self-care (01) ==
LOC: NCHCN 10:00
PROVIDERS: PCP Nurse Practitioner Family; Visit Provider Nurse Practitioner Family
DX: Z00.00 Encounter for general adult medical examination without abnormal findings (principal); F52.21 Male erectile disorder; M10.072 Idiopathic gout, left ankle and foot; F10.10 Alcohol abuse, uncomplicated; I10 Essential (primary) hypertension; K21.9 Gastro-esophageal reflux disease without esophagitis; F17.200 Nicotine dependence, unspecified, uncomplicated; Z12.5 Encounter for screening for malignant neoplasm of prostate
CPT/HCPCS: 84153; 84402; 84403; 84550

== ENCOUNTER 2021-03-16 14:29 | Outpatient (REF) | payer OTHER, SELFPAY ==
[2021-03-16 15:36] LABS: Clarity Clear; Crystals (BF) No Crystals seen; Mononuclear Cells 95 %; Nucleated Cells 244 uL (0); Polynuclear Cells 5 %
[2021-03-20 10:59] LABS: Specimen Source SYNOVIAL
== END 2021-03-16 14:30 | disposition home or self-care (01) ==
LOC: LBN 14:29
PROVIDERS: PCP Nurse Practitioner Family; Visit Provider Family Medicine
DX: M25.461 Effusion, right knee (principal)
CPT/HCPCS: 87070; 87205; 87476; 89051; 89060

== ENCOUNTER 2021-11-27 18:24 | Outpatient (REF) | payer OTHER, SELFPAY ==
[2021-11-27 13:46] LABS: Anion Gap 10.6 mmol/L (3-11); BUN 6 mg/dL (7-18); CO2 28.4 mmol/L (21.0-32.0); CREATININE 1.5 mg/dL (0.70-1.30); Calcium 9.3 mg/dL (8.5-10.1); Chloride 94 mmol/L (98-107); Estimated GFR 51.08 (mL/min/1.73m2); Glucose 122 mg/dL (74-106); Potassium 3.4 mmol/L (3.5-5.1); Sodium 133 mmol/L (136-145); Uric Acid 9.8 mg/dL (3.5-7.2)
== END 2021-11-27 18:25 | disposition home or self-care (01) ==
LOC: NCHCN 18:24
PROVIDERS: PCP Nurse Practitioner Family; Visit Provider Nurse Practitioner Family
DX: F41.8 Other specified anxiety disorders (principal); I10 Essential (primary) hypertension; M10.072 Idiopathic gout, left ankle and foot
CPT/HCPCS: 80048; 84550

== ENCOUNTER 2022-01-02 21:59 | Outpatient (REF) | payer OTHER, SELFPAY ==
[2022-01-02 20:07] LABS: Anion Gap 11.8 mmol/L (3-11); BUN 7 mg/dL (7-18); CO2 27.2 mmol/L (21.0-32.0); CREATININE 1.6 mg/dL (0.70-1.30); Calcium 8.9 mg/dL (8.5-10.1); Chloride 96 mmol/L (98-107); Estimated GFR 47.41 (mL/min/1.73m2); Glucose 115 mg/dL (74-106); Potassium 3.7 mmol/L (3.5-5.1); Sodium 135 mmol/L (136-145)
== END 2022-01-02 22:00 | disposition home or self-care (01) ==
LOC: NCHCN 21:59
PROVIDERS: PCP Nurse Practitioner Family; Visit Provider Nurse Practitioner Family
DX: I10 Essential (primary) hypertension (principal)
CPT/HCPCS: 80048

== ENCOUNTER 2022-02-05 09:14 | Outpatient (REF) | payer OTHER, SELFPAY ==
[2022-02-05 16:17] LABS: Anion Gap 9.5 mmol/L (3-11); BUN 8 mg/dL (7-18); CO2 29.5 mmol/L (21.0-32.0); CREATININE 1.5 mg/dL (0.70-1.30); Calcium 9.6 mg/dL (8.5-10.1); Chloride 97 mmol/L (98-107); Estimated GFR 51.08 (mL/min/1.73m2); Glucose 109 mg/dL (74-106); Potassium 3.4 mmol/L (3.5-5.1); Sodium 136 mmol/L (136-145); Uric Acid 10.5 mg/dL (3.5-7.2)
== END 2022-02-05 09:15 | disposition home or self-care (01) ==
LOC: NCHCN 09:14
PROVIDERS: PCP Nurse Practitioner Family; Visit Provider Nurse Practitioner Family
DX: Z00.00 Encounter for general adult medical examination without abnormal findings (principal)
CPT/HCPCS: 80048; 84550

== ENCOUNTER 2022-02-28 01:37 | Outpatient (CLI) | payer OTHER, SELFPAY ==
--- NOTE | 2022-02-28 | DI.RAD_ITS ---
Exam(s) XR HAND RT COMPLETE EXAM: XR HAND RT COMPLETE CLINICAL HISTORY: RT HAND PAIN, M79.641, PAIN AND SWELLING OVER BASE OF RT MIDDLE FINGER. TECHNIQUE: 2D digital imaging was performed. Three views. COMPARISON: CR XR hand LT complete from 06/17/2018 FINDINGS: BONES: No acute fracture is present. No bony destructive lesion is seen. JOINTS: No dislocation present. SOFT TISSUE: Normal. IMPRESSION: Unremarkable radiographs of the right hand. DATA REPOSITORY: RADIATION DOSE DELIVERED:
--- NOTE | 2022-02-28 | DI.US_ITS ---
Exam(s) US BREAST RT LIMITED MG MAMMO DIAGNOSTIC BI US BREAST LT LIMITED EXAM: MG MAMMO DIAGNOSTIC BI CLINICAL HISTORY: UNSPECIFIED LUMP LT BREAST SUBAREOLAR, N63.42 TECHNIQUE: Mammograms were interpreted according to the usual protocol including computer analysis w ith CAD system, tomosynthesis and C-view imaging. Bilateral breast ultrasound. COMPARISON: US US BREAST RT LIMITED from 02/28/2022 US US BREAST LT LIMITED from 02/28/2022 FINDINGS: Bilateral mammograms: The breasts are composed of scattered fibroglandular densities, Breast Density category B. There is bilateral breast tissue development in the subareolar regions, left greater than right. No suspicious masses suspicious calcifications are seen. No suspicious masses or suspicious microcalcif ications are seen. No skin thickening or abnormal axillary lymph nodes are seen. Bilateral breast ultrasound: There is a small amount hypoechoic breast tissue in the subareolar regions. The remainder of the abram asts are fatty. No suspicious masses are seen. IMPRESSION: BI-RADS Cat 2 - Benign Findings, consistent with bilateral gynecomastia. Breast Density - Category B, scattered fibroglandular densities. A negative radiographic report should not delay biopsy if a dominant or clinically suspicious mass is present. Up to ten percent of cancers are not identified on mammography. A negative report may reinforce clinical impression. Adenosis and dense breasts may obscure an underlying neoplasm. False positive reports average 6 to 10%. Patient will receive a letter notifying them of these results.
--- NOTE | 2022-02-28 | DI.RAD_ITS ---
Exam(s) XR TOE LT GREAT EXAM: XR TOE LT GREAT CLINICAL HISTORY: LT GREAT TOE GOUT, M10.072. TECHNIQUE: 2D digital imaging was performed. Three views. COMPARISON: CR RIGHT FOOT COMPLETE from 06/07/2015 FINDINGS: BONES: No acute fracture is present. No bony destructive lesion is seen. JOINTS: No dislocation present. SOFT TISSUE: Soft tissue swelling medial to the interphalangeal joint. No calcification or foreign b rohan. IMPRESSION: Soft tissue swelling. No bony erosions or soft tissue calcifications. DATA REPOSITORY: RADIATION DOSE DELIVERED:
== END 2022-02-28 01:57 ==
LOC: DI 01:37
PROVIDERS: PCP Nurse Practitioner Family; Visit Provider Nurse Practitioner Family
DX: N63.42 Unspecified lump in left breast, subareolar (principal); M79.641 Pain in right hand; M10.072 Idiopathic gout, left ankle and foot; M79.89 Other specified soft tissue disorders; R92.2 Inconclusive mammogram; M79.644 Pain in right finger(s)
CPT/HCPCS: 76642; 77062; 77066; 73130; 73660; G0279

== ENCOUNTER 2022-07-03 09:49 | Emergency (ER) | payer OTHER, SELFPAY ==
[2022-07-03 09:52] VITALS: BP 136/97; PULSE 86; RESP 18; TEMP 36.9; O2SAT 100
[2022-07-03] MEDS: Lidocaine 5% Patch 1 PATCH TP (10:06)
--- NOTE | 2022-07-03 10:12 | ED.GENADUL_ITS ---
Discharge Plan Disposition Patient Disposition: HOME Condition: Stable Discharge Details Clinical Impression: Left rib fracture Primary Care Provider: Shalini Zarate ED Provider: Krishna Canales Home Meds and New Rx's Prescriptions: Continued bupropion HCl [Wellbutrin SR] 150 mg tablet sustained-release 12 hr 150 mg PO DAILY fluoxetine [Prozac] 40 MG capsule 40 mg PO DAILY Qty: 90 albuterol sulfate [ProAir HFA] 90 mcg/actuation HFA aerosol inhaler 2 puff inhalation Q6H PRN folic acid 1 mg tablet 1 mg PO DAILY atenolol 100 mg tablet 100 mg PO DAILY lisinopril 40 mg tablet 40 mg PO DAILY hydrochlorothiazide 25 mg tablet 25 mg PO DAILY buspirone 10 mg tablet 10 mg PO BID sildenafil [Viagra] 50 mg tablet 50 mg PO DAILY PRN Rx Instructions: administer 30 minutes to 4 hours before activity omeprazole magnesium [Prilosec OTC] 20 mg Tablet,Delayed Release (Dr/Ec) 20 mg PO DAILY Discharge Instructions Instructions: How to Use an Incentive Spirometer (ED), Rib Fracture (ED) Additional Instructions: Use lidocaine patches. Dose according to label. Please take ibuprofen over the counter. Take 600mg by mouth every 6 hours as needed for pain. Please contact your primary care physician to arrange follow-up. Return to the ER immediately for any worsening or new concerning symptoms. Referrals: Shalini Zarate [Primary Care Provider] - Medical Decision Making 41-year-old male here with left lower lateral chest wall pain, tender to palpation, has been present for the past couple weeks and worse today after coughing spell. Patient is saturating well in no respiratory distress. Considered pneumothorax versus rib fracture versus costochondritis. X-ray of the chest was reviewed and interpreted by radiology: Nondisplaced 10th rib fracture acute. Plan to treat with incentive spirometry, lidocaine patch was placed, ibuprofen provided. Usual customary discharge instructions reviewed with the patient. HPI General Mode of arrival: ambulatory . Date/Time Provider Initiated Documentation: 07/03/22 09:56 . Limitations to Documentation: no limitations . HPI Narrative: 41-year-old male with chief complaint of left-sided chest pain. Patient notes about 2 to 3 weeks ago he was lifting heavy object and thought he pulled a muscle in his left lateral chest. He had pain since that time with deep inspiration and certain positions this morning he had a couple hard coughs and felt a popping sensation left side and had sudden worsening of pain. Pain now severe and worse with any deep breath and on palpation. No associated shortness of breath. Related Data Home Medications Medication Instructions Recorded Confirmed fluoxetine 40 mg capsule (Prozac) 40 mg PO DAILY #90 tab-caps 01/25/14 07/03/22 bupropion HCl 150 mg tablet,12 hr 150 mg PO DAILY 09/24/18 07/03/22 sustained-release (Wellbutrin SR) omeprazole magnesium 20 mg 20 mg PO DAILY 05/19/19 07/03/22 tablet,delayed release (Prilosec OTC) albuterol sulfate 90 mcg/actuation 2 puff inhalation Q6H PRN 09/04/21 07/03/22 aerosol inhaler (ProAir HFA) atenolol 100 mg tablet 100 mg PO DAILY 09/04/21 07/03/22 buspirone 10 mg tablet 10 mg PO BID 09/04/21 07/03/22 folic acid 1 mg tablet 1 mg PO DAILY 09/04/21 07/03/22 hydrochlorothiazide 25 mg tablet 25 mg PO DAILY 09/04/21 07/03/22 lisinopril 40 mg tablet 40 mg PO DAILY 09/04/21 07/03/22 sildenafil 50 mg tablet (Viagra) 50 mg PO DAILY PRN 09/04/21 07/03/22 Allergies Allergy/AdvReac Type Severity Reaction Status Date / Time morphine Allergy Unknown Unverified 07/03/22 09:55 hydromorphone HCl AdvReac Severe Visual Unverified 07/03/22 09:55 [From Dilaudid] Disturbances aspirin AdvReac HEARTBURN Unverified 07/03/22 09:55 sertraline AdvReac NAUSEA Unverified 07/03/22 09:55 General Stated Complaint: Chest/Rib MILTON: 4 Review of Systems All systems reviewed & are unremarkable except as noted in HPI and below Constitutional Constitutional: Denies fever(s) Cardiovascular Cardiovascular: Denies dyspnea Respiratory Respiratory: Denies cough and Denies dyspnea Gastrointestinal Gastrointestinal: Denies abdominal pain PFSH All Active Problems (Updated 07/03/22 @ 11:18 by Krishna Canales MD) Left rib fracture (Acute) Chest pain (Acute) Acute dehydration (Acute) Cancer of kidney (Acute 03/01/14) 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 Medical History 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 Anemia Chronic neck pain COPD (chronic obstructive pulmonary disease) Depression (03/01/14) Depression with anxiety Erectile dysfunction GERD (gastroesophageal reflux disease) Gout Hypertension (03/01/14) Knee effusion Nausea and vomiting Nocturia Palpitations Renal cell carcinoma Surgical History History of fusion of cervical spine knee surgery b/l Social History Smoking/Tobacco Use Status: Current every day Tobacco Type: cigarettes Smoking risk assessment performed?: Yes Alcohol Intake: current Alcohol Intake frequency: 3 or more drinks per day Alcohol type: beer Drug use: Daily Substance use type: marijuana Details: none today Current gender identity: male Do you feel safe at home: Yes Do you feel safe in your relationship?: Yes Exam Const General: cooperative and no acute distress HENMT Mouth: moist mucous membranes Eyes Conjunctivae: normal conjunctivae Sclera: normal sclerae Neck Neck: trachea midline and supple Chest Chest: no crepitus and tenderness rib (Left lower lateral) Resp Auscultation: clear to auscultation bilaterally, no rales, no rhonchi and no wheezes Cardio Rate: regular rate and not tachycardic Rhythm: regular rhythm GI Palpation: soft, not firm, no guarding, no masses, not rigid and nontender Neuro General: patient alert and patient awake Extrem General: no edema Psych Appearance: grossly normal Mental Status: mental status grossly normal Course Vital Signs Vital signs: Vital Signs Temperature 36.9 C 07/03/22 09:52 Pulse 86 07/03/22 09:52 Respiratory Rate 18 07/03/22 09:52 Blood Pressure 136/97 H 07/03/22 09:52 Pulse Oximetry 100 07/03/22 09:52 Temperature 36.9 C 07/03/22 09:52 Temperature Source Oral 07/03/22 09:52 Pulse 86 07/03/22 09:52 Respiratory Rate 18 07/03/22 09:52 Respiratory Effort Non-Labored 07/03/22 09:57 Blood Pressure 136/97 H 07/03/22 09:52 Blood Pressure Position Sitting 07/03/22 09:52 Pulse Oximetry 100 07/03/22 09:52 Oxygen Delivery Method Room Air 07/03/22 09:52 Oxygen Flow Rate 0 07/03/22 09:52 Pain Level 10 07/03/22 09:52 Comment 07/03/22 09:52 PAWSS Have you Been Recently Intoxicated or Drunk Within the Last 30 days?: Yes Have you Ever Experienced Previous Episodes of Alcohol Withdrawal?: Yes Have you ever Experienced Withdrawal Seizures?: Yes Have you ever Experienced Delirium Tremens(DT)s?: No Have you ever undergone Alcohol Rehabilitation Treatment (i.e, inpt ot outpatient treatment programs)?: Yes Have you ever Experienced Blackouts?: Yes Have you ever Combined Alcohol with other Downers within the last 90 days?: No Have you ever Combined Alcohol with any other Substance of Abuse during the last 90 days?: Yes Positive Blood Alcohol level on Presentation? [PCS.BAL]: No Evidence of Increased Autonomic Activity (i.e. HR>120, tremor, sweating, agitation, nausea)?: No Result: 7
--- NOTE | 2022-07-03 10:32 | DI.RAD_ITS ---
Exam(s) XR RIBS LT W PA LAT CHEST EXAM: XR RIBS LT W PA LAT CHEST CLINICAL HISTORY: pain, felt pop TECHNIQUE: 2D digital imaging was performed. Seven images are obtained. COMPARISON: CR,XR XR RIBS LT W PA LAT CHEST from 05/25/2020 FINDINGS: MEDIASTINUM: Normal. HEART: Normal. PULMONARY VASCULATURE: Normal. LUNGS: Clear. PLEURAL SPACE: No pleural effusion or pneumothorax. BONE:Within normal limits for the patient's age. LEFT RIBS: There does appear to be an acute nondisplaced left 10th rib fracture posterior laterally. There are several old healed or healing upper left rib fractures present. Incidental note is also m rikki of a healed right 7th rib fracture. OTHER FINDINGS:Normal. IMPRESSION: 1. No acute pulmonary findings. 2. Acute nondisplaced left 10th rib fracture. 3. Findings were discussed with Dr. Canales at 10:49 a.m. on 07/03/2022. DATA REPOSITORY: RADIATION DOSE DELIVERED:
[2022-07-03] MEDS: Ibuprofen 600 MG TAB PO (10:41)
== END 2022-07-03 12:05 | disposition home or self-care (01) ==
PROVIDERS: Emergency Provider Student in an Organized Health Care Education/Training Program; PCP Nurse Practitioner Family
DX: S22.32XA Fracture of one rib, left side, initial encounter for closed fracture (principal); J44.9 Chronic obstructive pulmonary disease, unspecified; I10 Essential (primary) hypertension; X50.0XXA Overexertion from strenuous movement or load, initial encounter
CPT/HCPCS: 99283; 71046; 71100; 99284

== ENCOUNTER 2022-07-31 14:20 | Outpatient (REF) | payer OTHER, SELFPAY ==
[2022-07-31 16:18] LABS: Anion Gap 9.8 mmol/L (3-11); BUN 16 mg/dL (7-18); CO2 32.2 mmol/L (21.0-32.0); CREATININE 1.9 mg/dL (0.70-1.30); Calcium 9.9 mg/dL (8.5-10.1); Chloride 93 mmol/L (98-107); Estimated GFR 44.33 (mL/min/1.73m2); Glucose 110 mg/dL (74-106); Potassium 3.3 mmol/L (3.5-5.1); Sodium 135 mmol/L (136-145); Uric Acid 7.8 mg/dL (3.5-7.2)
== END 2022-07-31 14:21 | disposition home or self-care (01) ==
LOC: NCHCN 14:20
PROVIDERS: PCP Nurse Practitioner Family; Visit Provider Nurse Practitioner Family
DX: N18.2 Chronic kidney disease, stage 2 (mild) (principal); R11.2 Nausea with vomiting, unspecified; M10.072 Idiopathic gout, left ankle and foot
CPT/HCPCS: 80048; 84550

== ENCOUNTER 2022-09-12 09:55 | Outpatient (REF) | payer BC, SELFPAY ==
[2022-09-12 15:47] LABS: Anion Gap 5.9 mmol/L (3-11); BUN 16 mg/dL (7-18); CO2 26.1 mmol/L (21.0-32.0); CREATININE 1.6 mg/dL (0.70-1.30); Calcium 9.8 mg/dL (8.5-10.1); Chloride 99 mmol/L (98-107); Estimated GFR 54.49 (mL/min/1.73m2); Glucose 102 mg/dL (74-106); Potassium 4.3 mmol/L (3.5-5.1); Sodium 131 mmol/L (136-145)
== END 2022-09-12 09:56 | disposition home or self-care (01) ==
LOC: NCHCN 09:55
PROVIDERS: PCP Nurse Practitioner Family; Visit Provider Nurse Practitioner Family
DX: I10 Essential (primary) hypertension (principal)
CPT/HCPCS: 80048

== ENCOUNTER 2022-11-21 02:01 | Outpatient (CLI) | payer BC, SELFPAY ==
[2022-11-21 12:58] LABS: Hemoglobin A1C 5.3 % (<5.7)
[2022-11-21 13:05] LABS: Vitamin D 25 Total 48.8 ng/mL (30-100)
[2022-11-21 13:14] LABS: Folate 2.6 ng/mL (8.6-20.0); Vitamin B12 419 pg/mL (193-986)
[2022-11-27 09:35] LABS: Thiamine (Vitamin B1), WB 126 nmol/L (70-180)
== END 2022-11-21 02:02 | disposition home or self-care (01) ==
LOC: LOS 02:01
PROVIDERS: PCP Nurse Practitioner Family; Visit Provider Nurse Practitioner Family
DX: F10.20 Alcohol dependence, uncomplicated (principal); R20.2 Paresthesia of skin
CPT/HCPCS: 36415; 82306; 82607; 82746; 83036; 84425

== ENCOUNTER 2022-12-11 18:13 | Outpatient (REF) | payer BC, SELFPAY ==
[2022-12-11 16:14] LABS: Uric Acid 6.7 mg/dL (3.5-7.2)
== END 2022-12-11 18:14 | disposition home or self-care (01) ==
LOC: NCHCN 18:13
PROVIDERS: PCP Nurse Practitioner Family; Visit Provider Nurse Practitioner Family
DX: Z86.39 Personal history of other endocrine, nutritional and metabolic disease
CPT/HCPCS: 84550

== ENCOUNTER 2022-12-25 09:22 | Outpatient (REF) | payer BC, SELFPAY ==
[2022-12-25 16:11] LABS: Anion Gap 11.9 mmol/L (3-11); BUN 6 mg/dL (7-18); CO2 26.1 mmol/L (21.0-32.0); CREATININE 1.4 mg/dL (0.70-1.30); Chloride 106 mmol/L (98-107); Estimated GFR 63.56 (mL/min/1.73m2); Glucose 142 mg/dL (74-106); Potassium 3.1 mmol/L (3.5-5.1); Sodium 144 mmol/L (136-145)
== END 2022-12-25 09:23 | disposition home or self-care (01) ==
LOC: NCHCN 09:22
PROVIDERS: PCP Nurse Practitioner Family; Visit Provider Nurse Practitioner Family
DX: M10.072 Idiopathic gout, left ankle and foot (principal)
CPT/HCPCS: 80048

== ENCOUNTER 2023-01-15 15:43 | Outpatient (REF) | payer BC, SELFPAY ==
[2023-01-15 15:26] LABS: Anion Gap 8.3 mmol/L (3-11); BUN 4 mg/dL (7-18); CO2 29.7 mmol/L (21.0-32.0); CREATININE 1.4 mg/dL (0.70-1.30); Calcium 8.9 mg/dL (8.5-10.1); Chloride 102 mmol/L (98-107); Estimated GFR 63.56 (mL/min/1.73m2); Glucose 174 mg/dL (74-106); Potassium 3.4 mmol/L (3.5-5.1); Sodium 140 mmol/L (136-145)
== END 2023-01-15 15:44 | disposition home or self-care (01) ==
LOC: NCHCN 15:43
PROVIDERS: PCP Nurse Practitioner Family; Visit Provider Nurse Practitioner Family
DX: I10 Essential (primary) hypertension (principal)
CPT/HCPCS: 80048

== ENCOUNTER 2023-02-14 09:56 | Outpatient (REF) | payer BC, SELFPAY ==
[2023-02-14 16:13] LABS: Anion Gap 11.1 mmol/L (3-11); BUN 5 mg/dL (7-18); CO2 29.9 mmol/L (21.0-32.0); CREATININE 1.2 mg/dL (0.70-1.30); Calcium 8.9 mg/dL (8.5-10.1); Chloride 100 mmol/L (98-107); Estimated GFR 76.48 (mL/min/1.73m2); Glucose 154 mg/dL (74-106); Potassium 3.1 mmol/L (3.5-5.1); Sodium 141 mmol/L (136-145)
== END 2023-02-14 09:57 | disposition home or self-care (01) ==
LOC: NCHCN 09:56
PROVIDERS: PCP Nurse Practitioner Family; Visit Provider Nurse Practitioner Family
DX: I10 Essential (primary) hypertension (principal)
CPT/HCPCS: 80048

== ENCOUNTER 2023-03-11 10:25 | Outpatient (CLI) | payer BC, SELFPAY ==
--- NOTE | 2023-03-11 09:45 | DI.RAD_ITS ---
Exam(s) XR KNEE RT 4V AP,LAT,THIEN,PAT EXAM: XR KNEE RT 4V AP,LAT,THIEN,PAT CLINICAL HISTORY: right knee pain. TECHNIQUE: 2D digital imaging was performed. Four views. COMPARISON: CR XR KNEE 4 VIEW RIGHT from 02/20/2022 FINDINGS: BONES: No acute fracture is present. No bony destructive lesion is seen. Lucencies in slight deformit y from prior surgery. Prior ACL repair. JOINTS: Severe narrowing of the medial femoral tibial joint space and prominent periarticular spurrin g. Moderate narrowing of the lateral femoral tibial joint. Patellofemoral joint is maintained. Bon y densities again noted beneath the patella. A moderate size joint effusion is seen. SOFT TISSUE: Normal. IMPRESSION: Advanced degenerate changes. Postsurgical changes. DATA REPOSITORY: RADIATION DOSE DELIVERED:
== END 2023-03-11 10:26 | disposition home or self-care (01) ==
LOC: DIORS 10:25
PROVIDERS: PCP Nurse Practitioner Family; Visit Provider Physician Assistant
DX: M17.11 Unilateral primary osteoarthritis, right knee; Z98.890 Other specified postprocedural states
CPT/HCPCS: 73564

== ENCOUNTER 2023-05-18 14:22 | Emergency (ER) | payer BC, SELFPAY ==
[2023-05-18 14:24] VITALS: BP 169/129; PULSE 100; RESP 20; TEMP 37; O2SAT 99
--- NOTE | 2023-05-18 14:45 | DI.RAD_ITS ---
Exam(s) XR FINGER LT RING EXAM: XR FINGER LT RING EXAM DATE/TIME: CLINICAL HISTORY: distal crush injury. TECHNIQUE: 2D digital imaging was performed of the left finger. Three views were obtained. PA/AP, oblique, and lateral views were obtained. COMPARISON: None. FINDINGS: BONES: There is an acute comminuted fracture of the terminal tuft of the 4th finger. No bony destruc tive lesion is seen. JOINTS: No dislocation is present. SOFT TISSUE: Normal. IMPRESSION: Acute comminuted fracture of the terminal tuft of the 4th finger. DATA REPOSITORY: RADIATION DOSE DELIVERED:
--- NOTE | 2023-05-18 15:30 | DI.VRAD_ITS ---
PROCEDURE INFORMATION: Exam: XR Left Finger(s) Exam date and time: 05/18/2023 3:02 PM Age: 42 years old Clinical indication: Injury or trauma; Other: Brick to finger; Blunt trauma (contusions or hematomas); Left; Ring finger; Patient HX: Distal crush injury TECHNIQUE: Imaging protocol: Radiologic exam of the left fingers. Views: Minimum 2 views. COMPARISON: CR XR hand LT complete 06/17/2018 4:29 PM FINDINGS: Bones/joints: Comminuted fracture distal tuft of the 4th finger. Fracture does not extend into the DIP joint. Soft tissues: Soft tissue swelling. IMPRESSION: Comminuted fracture of the distal tuft of the 4th finger. Dictated and Authenticated by: Kurtis Blanchard MD. Ordering:ROWAN Trevizo MD
--- NOTE | 2023-05-18 15:59 | ED.GENADUL_ITS ---
Discharge Plan Disposition Patient Disposition: Home Discharge Details Clinical Impression: Open fracture of tuft of distal phalanx of finger Primary Care Provider: Shalini Zarate ED Provider: Santhosh Rivera Home Meds and New Rx's Prescriptions: New cephalexin 500 mg tablet 500 mg PO QID 3 Days Qty: 12 0RF No Action bupropion HCl [Wellbutrin SR] 150 mg tablet sustained-release 12 hr 150 mg PO DAILY allopurinol 100 mg tablet 200 mg PO DAILY gabapentin 300 mg capsule See Rx Instructions PO TID Qty: 150 5RF Rx Instructions: 300mg TID x 1 week, then [phone] x 1 week, then [phone] thereafter orally three times a day; celecoxib 200 mg capsule 200 mg PO DAILY Qty: 30 0RF mupirocin 2 % ointment 1 applic topical TID Qty: 15 0RF albuterol sulfate [ProAir HFA] 90 mcg/actuation HFA aerosol inhaler 2 puff inhalation Q6H PRN folic acid 1 mg tablet 1 mg PO DAILY atenolol 100 mg tablet 100 mg PO DAILY buspirone 10 mg tablet 10 mg PO BID sildenafil [Viagra] 50 mg tablet 50 mg PO DAILY PRN Rx Instructions: administer 30 minutes to 4 hours before activity naltrexone 50 mg tablet 25 mg PO DAILY chlordiazepoxide HCl 25 mg capsule 25 mg PO BID PRN escitalopram oxalate 10 mg tablet 10 mg PO DAILY diphenhydramine HCl [Benadryl] 25 mg capsule 25 mg PO QHS PRN Rx Instructions: 1-2 prn for sleep pantoprazole 40 mg tablet,delayed release (DR/EC) 40 mg PO DAILY Discharge Instructions Instructions: Finger Fracture (ED) Additional Instructions: Please continue to take your normally prescribed medication and you may also take [id number] acetaminophen as needed for further pain control. Keep finger elevated. Watch for any signs of infection and return immediately to the emergency department if these occur. Otherwise keep dressing in place for the next 24-48 hours and then keep wound clean and dry. Return to the emergency department 7 days for suture removal. Referrals: [facility] [Provider Group] (Please call the office Saturday afternoon or Saturday morning for arrangement of follow-up appointment) Discharge Data Discharge Date/Time-TO BE ENTERED AT DEPARTURE: 05/18/23 16:10 Medical Decision Making Left ring finger crush injury no other injury or trauma, tetanus up-to-date Imaging performed and shows comminuted tuft fracture. Wound repaired with two 4-0 Prolene sutures and subungual hematoma drained with cautery. Patient placed in foam metal splint and on Ortho list for follow-up. Patient was placed on 3 days of Keflex for open tuft fracture. After discussion of diagnosis and plan of care patient has no further needs, questions, or concerns and states clear understanding to return to the emergency department for any worsening symptoms. This documentation was generated using Cronoteation system, please disregard any oddities of phrase or misspellings. HPI General Mode of arrival: ambulatory . Date/Time Provider Initiated Documentation: 05/18/23 14:34 . Limitations to Documentation: no limitations . Information obtained by: patient and RN notes reviewed . History of Present Illness 42 year old M presents to the emergency department with the chief complaint of Left ring finger crush injury, described as moderate, and is localized to the left and upper extremity. Patient started experiencing this hour(s) (6) and it has been constant. No relieving factors improve symptom(s), No exacerbating factors reported . Patient notes no other symptoms.. Patient did receive the following treatments prior to arrival, none Related Data Home Medications Medication Instructions Recorded Confirmed bupropion HCl 150 mg tablet,12 hr 150 mg PO DAILY 09/24/18 05/18/23 sustained-release (Wellbutrin SR) albuterol sulfate 90 mcg/actuation 2 puff inhalation Q6H PRN 09/04/21 05/18/23 aerosol inhaler (ProAir HFA) atenolol 100 mg tablet 100 mg PO DAILY 09/04/21 05/18/23 buspirone 10 mg tablet 10 mg PO BID 09/04/21 05/18/23 folic acid 1 mg tablet 1 mg PO DAILY 09/04/21 05/18/23 sildenafil 50 mg tablet (Viagra) 50 mg PO DAILY PRN 09/04/21 05/18/23 chlordiazepoxide HCl 25 mg capsule 25 mg PO BID PRN 09/27/22 05/18/23 diphenhydramine HCl 25 mg capsule 25 mg PO QHS PRN 09/27/22 05/18/23 (Benadryl) escitalopram oxalate 10 mg tablet 10 mg PO DAILY 09/27/22 05/18/23 naltrexone 50 mg tablet 25 mg PO DAILY 09/27/22 05/18/23 pantoprazole 40 mg tablet,delayed 40 mg PO DAILY 09/27/22 05/18/23 release allopurinol 100 mg tablet 200 mg PO DAILY 10/29/22 05/18/23 celecoxib 200 mg capsule 200 mg PO DAILY #30 caps 03/11/23 05/18/23 gabapentin 300 mg capsule See Rx Instructions PO TID #150 03/11/23 05/18/23 caps mupirocin 2 % topical ointment 1 applic topical TID #15 grams 03/27/23 05/18/23 cephalexin 500 mg tablet 500 mg PO QID 3 days #12 tabs 05/18/23 Previous Rx's Medication Instructions Recorded celecoxib 200 mg capsule 200 mg PO DAILY #30 caps 03/11/23 gabapentin 300 mg capsule See Rx Instructions PO TID #150 03/11/23 caps mupirocin 2 % topical ointment 1 applic topical TID #15 grams 03/27/23 cephalexin 500 mg tablet 500 mg PO QID 3 days #12 tabs 05/18/23 Allergies Allergy/AdvReac Type Severity Reaction Status Date / Time morphine Allergy Unknown Unverified 05/18/23 14:29 bacitracin Allergy Verified 05/18/23 14:29 [From Neosporin ([id number])] neomycin Allergy Verified 05/18/23 14:29 [From Neosporin ([id number])] polymyxin B Allergy Verified 05/18/23 14:29 [From Neosporin ([id number])] hydromorphone HCl AdvReac Severe Visual Unverified 05/18/23 14:29 [From Dilaudid] Disturbances aspirin AdvReac HEARTBURN Unverified 05/18/23 14:29 sertraline AdvReac NAUSEA Unverified 05/18/23 14:29 General Stated Complaint: Orthopedic MILTON: 4 Review of Systems Narrative: 6 systems reviewed and unremarkable except what is marked below. Musculoskeletal Musculoskeletal: Reports as per HPI, Denies numbness, Reports stiffness and Denies tingling Neurologic Neurologic: Denies numbness and Denies tingling PFSH All Active Problems (Updated 05/18/23 @ 16:01 by Santhosh Rivera NP) Open fracture of tuft of distal phalanx of finger (Acute) Crushing injury of finger of left hand (Acute) Degenerative joint disease of right knee (Acute) Peripheral neuropathy (Acute) Shoulder pain, bilateral (Acute) Bursitis of elbow (Acute) Knee effusion, right (Acute) Hand pain, right (Acute) Sebaceous cyst (Acute) History of paresthesia (Acute) Bilateral knee pain (Acute) Chest pain (Acute) Acute dehydration (Acute) Cancer of kidney (Acute 03/01/14) 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 Medical History Alcohol abuse Alcohol dependence 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 Anemia Chronic kidney disease, stage 2 (mild) Chronic neck pain COPD (chronic obstructive pulmonary disease) Depression (03/01/14) Depression with anxiety Erectile dysfunction GERD (gastroesophageal reflux disease) Gout Headache Hypertension (03/01/14) Knee effusion, right Nocturia Renal cell carcinoma Smoker Subareolar lump of breast Surgical History H/O partial nephrectomy History of fusion of cervical spine knee surgery Left ACL 1996 Right knee surgery described as involving meniscus, ACL and MCL ~2010 Family History Father Hypertension Social History Smoking/Tobacco Use Status: Current every day Tobacco Type: cigarettes Smoking risk assessment performed?: Yes Alcohol Intake: current Alcohol Intake frequency: 3 or more drinks per day Alcohol type: beer Drug use: Daily Substance use type: marijuana Details: none today Household members: spouse 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 Current gender identity: male What is your relationship status?: Panel score (0-1 are the most socially isolated patients): 1 Do you feel safe at home: Yes Do you feel safe in your relationship?: Yes Exam Const General: cooperative, no acute distress and not ill appearing Orientation: alert, awake and oriented x3 HENMT Mouth: moist mucous membranes Resp Effort & Inspection: normal respiratory effort, able to speak in complete sentences and no respiratory distress Neuro General: patient alert, patient awake, patient oriented x3, moves all extremities and no focal motor deficits Sensory Exam: no sensory deficits noted Extrem General: normal exam except as noted Left upper extremity: hand Details: neuromotor exam normal, neurosensory exam normal, tendon exam normal, tenderness Location: of the 4th digit Location: at the distal phalanx, vascular exam Details: radial pulse present and normal capillary refill, normal ROM of fingers, laceration 4th digit distal Details: linear, actively bleeding, involving subcutaneous tissue, with motor nerve function intact and with sensation intact and ecchymosis Location: of the 4th digit Location: at the distal phalanx and at the nailbed Course Vital Signs Vital signs: Vital Signs Temperature 37.0 C 05/18/23 14:24 Pulse 100 H 05/18/23 14:24 Respiratory Rate 20 05/18/23 14:24 Blood Pressure 169/129 H 05/18/23 14:24 Pulse Oximetry 99 05/18/23 14:24 Temperature 37.0 C 05/18/23 14:24 Pulse 100 H 05/18/23 14:24 Respiratory Rate 20 05/18/23 14:24 Respiratory Effort Normal 05/18/23 14:30 Blood Pressure 169/129 H 05/18/23 14:24 Blood Pressure Position Sitting 05/18/23 14:24 Pulse Oximetry 99 05/18/23 14:24 Oxygen Delivery Method Room Air 05/18/23 14:24 Oxygen Flow Rate 0 05/18/23 14:24 Pain Level 10 05/18/23 14:24 Procedures Laceration Laceration 1: Site: upper extremity and hand Side (If applicable): left Size (cm): 1 Description: linear Depth: simple, single layer Local Anesthetic: Lidocaine 1% (digital block) Amount of anesthesia used (mL): 2 Pre-repair: wound explored, irrigated extensively and deep structures intact Skin layer closed with: other (prolene) Size (cm): 4-0 Number of sutures: 2 Technique: simple, interrupted Nail Trephination Time out: Yes Location (finger): left and ring Sterile prep: chlorhexidine Method of drainage: nail cautery Procedure successful: Yes Patient tolerated procedure: well and no complications
[2023-05-18] MEDS: Cephalexin 500 MG CAP PO (16:10)
== END 2023-05-18 16:10 | disposition home or self-care (01) ==
PROVIDERS: Emergency Provider Nurse Practitioner Family; PCP Nurse Practitioner Family
DX: S62.615A Displaced fracture of proximal phalanx of left ring finger, initial encounter for closed fracture (principal); I12.9 Hypertensive chronic kidney disease with stage 1 through stage 4 chronic kidney disease, or unspecified chronic kidney disease; N18.2 Chronic kidney disease, stage 2 (mild); F17.210 Nicotine dependence, cigarettes, uncomplicated; Z90.5 Acquired absence of kidney; W23.1XXA Caught, crushed, jammed, or pinched between stationary objects, initial encounter; Y93.89 Activity, other specified; Y92.010 Kitchen of single-family (private) house as the place of occurrence of the external cause; Y99.9 Unspecified external cause status
CPT/HCPCS: 11740; 12001; 99283; 73140

== ENCOUNTER 2023-08-05 04:39 | Outpatient (CLI) | payer BC, SELFPAY ==
[2023-08-05 09:24] LABS: HGB 14.5 g/dL (13.5-17.5); MCH 32.6 pg (27.0-33.0); MCV 99 fL (80-95); MPV 9.6 fL (8.0-11.0); Platelet Count 253 10^3/uL (130-400); RBC 4.45 10^6/uL (4.36-5.78); RDW 12.8 % (11.8-14.1); RDW-SD 46.8 fL; WBC 10.46 10^3/uL (4.4-10.8)
[2023-08-05 09:57] LABS: Anion Gap 11.5 mmol/L (3-11); BUN 4 mg/dL (7-18); CO2 29.5 mmol/L (21.0-32.0); CREATININE 1.3 mg/dL (0.70-1.30); Chloride 98 mmol/L (98-107); Estimated GFR 69.47 (mL/min/1.73m2); Glucose 141 mg/dL (74-106); Potassium 3.7 mmol/L (3.5-5.1); Sodium 139 mmol/L (136-145); TSH (W/Ref FT4) 3.59 uIU/mL (0.36-3.74)
[2023-08-06 13:42] LABS: Albumin 51.3 % (55.8-66.1); Albumin g/dL 3.7 g/dL (3.6-5.2); Total Protein 7.2 g/dL (6.3-8.2)
== END 2023-08-05 04:40 | disposition home or self-care (01) ==
LOC: LBO 04:39
PROVIDERS: Psychiatry & Neurology Neurology; PCP Nurse Practitioner Family; Visit Provider Student in an Organized Health Care Education/Training Program
DX: M17.11 Unilateral primary osteoarthritis, right knee (principal); Z01.818 Encounter for other preprocedural examination; G62.9 Polyneuropathy, unspecified
CPT/HCPCS: 36415; 80048; 85027; 84165; 84443

== ENCOUNTER 2023-08-05 15:01 | Outpatient (CLI) | payer BC, SELFPAY ==
--- NOTE | 2023-08-05 08:00 | DI.RAD_ITS ---
Exam(s) XR STANDING ALIGNMENT XR KNEE RT 1V EXAM: XR STANDING ALIGNMENT CLINICAL HISTORY: PRE OP R TKA. TECHNIQUE: 2D digital imaging was performed. Standing AP views were performed from the pelvis throu gh the ankles. Lateral view right knee COMPARISON: CR XR KNEE RT 4V AP,LAT,THIEN,PAT from 03/11/2023 CR XR KNEE RT 1V from 08/05/2023 FINDINGS: BONES: No acute fracture is present. No bony destructive lesion is seen. Leg length discrepancy: Mild, with the left femoral head projecting approximately 5 millimeters super ior to the left. JOINTS: Knees: Status post bilateral ACL repair. Severe narrowing of the medial femoral tibial joint space of the right knee. Mild varus angulation. Left joint spaces are maintained. The ankle joints are unremarkable. The hip joints are unremarkable. SOFT TISSUE: Normal. IMPRESSION: Severe degenerative changes medial femoral tibial joint right knee. Bilateral ACL repairs.. Mild overall leg length discrepancy. DATA REPOSITORY: RADIATION DOSE DELIVERED:
--- OUTSIDE RECORDS SUMMARY | 2023-08-05 15:06 | XMS_ITS | Continuity of Care Document ---
Author Name Unknown Organization [facility] Address [address] [place] [address] Care Team Providers Care Digital Sales Representative Name Role Phone DESIREE LU Primary Care Physician Encounter [facility] NBR [id number] Date(s): 06/21/22 - 06/21/22 [facility] [address] [place] [address]- Encounter Diagnosis Nonhealing surgical wound(Discharge Diagnosis) - 06/21/22 Discharge Disposition: Home or Self Care Attending Physician: Peri Marx MD Referring Physician: DESIREE LU Allergies, Adverse Reactions, Alerts Substance Reaction Severity Status aspirin Unknown Unknown Active morphine Unknown Unknown Active HYDROmorphone Unknown Unknown Active Sertraline Hydrochloride Unknown Unknown Act diana Medications Aerochamber Plus, large 0 Refill(s) Start Date: 06/19/22 Status: Ordered atenolol 25 mg oral tablet 1 Unknown, 0 Refill(s) Start Date: 06/19/22 Status: Ordered buPROPion 150 mg/12 hours (SR) oral tablet, extended release 1 Unknown, 0 Refill(s) Start Date: 06/19/22 Status: Ordered busPIRone 5 mg oral tablet BID, 1 Unknown, 0 Refill(s) Start Date: 06/19/22 Status: Ordered FLUoxetine 40 mg oral capsule 1 Unknown, 0 Refill(s) Start Date: 06/19/22 Status: Ordered hydroCHLOROthiazide 25 mg oral tablet 1 Unknown, 0 Refill(s) Start Date: 06/19/22 Status: Ordered pantoprazole 20 mg oral delayed release tablet 1 Unknown, 0 Refill(s) Start Date: 06/19/22 Status: Ordered ProAir HFA 90 mcg/inh inhalation aerosol 1 Unknown, 0 Refill(s) Start Date: 06/19/22 Status: Suspended Problem List Condition Confirmation Course Effective Dates Status H ealth Status Informant Derangement of left knee Confirmed Active Gastroesophageal reflux disease without esophagitis Confirmed Active 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 Sex Patient Care team information Personnel Name: DESIREE LU Address: Address: [address] [place] [id number] [place] [address]
== END 2023-08-05 15:02 | disposition home or self-care (01) ==
LOC: DIORS 15:01
PROVIDERS: PCP Nurse Practitioner Family; Visit Provider Physician Assistant
DX: M17.11 Unilateral primary osteoarthritis, right knee (principal); Z98.890 Other specified postprocedural states
CPT/HCPCS: 73560; 77073

== ENCOUNTER 2023-08-30 08:56 | Outpatient (REF) | payer BC, SELFPAY ==
[2023-08-30 16:34] LABS: Anion Gap 9.8 mmol/L (3-11); BUN 7 mg/dL (7-18); CO2 26.2 mmol/L (21.0-32.0); CREATININE 1.3 mg/dL (0.70-1.30); Chloride 102 mmol/L (98-107); Estimated GFR 69.47 (mL/min/1.73m2); Glucose 148 mg/dL (74-106); Potassium 3.8 mmol/L (3.5-5.1); Sodium 138 mmol/L (136-145)
== END 2023-08-30 08:57 | disposition home or self-care (01) ==
LOC: NCHCN 08:56
PROVIDERS: PCP Nurse Practitioner Family; Visit Provider Nurse Practitioner Family
DX: I10 Essential (primary) hypertension (principal)
CPT/HCPCS: 80048

== ENCOUNTER 2023-09-17 04:10 | Emergency (ER) | payer BC, SELFPAY ==
[2023-09-17] VITALS (43 sets, daily range): BP systolic 191–240; BP diastolic 105–138; PULSE 67–84; RESP 12–28; TEMP 36.4; O2SAT 91–99
--- NOTE | 2023-09-17 04:00 | RT.EKG_ITS ---
APPROVED REPORT Exam: Resting ECG Reason for Exam: short of breath Patient Location: E HR:79 bpm ECG Measurements Heart Rate 79 AXIS TN 149 P 27 QRSd 104 QRS 4 QT 442 T -7 QTc 507 Conclusion Sinus rhythm.., V-rate 60- [address] prolonged [address]Tc no [address] segment or T wave abnormalities to suggest occlusive MO
--- NOTE | 2023-09-17 04:30 | DI.RAD_ITS ---
Exam(s) XR CHEST 1V IN DI DEPT EXAM: XR CHEST 1V IN DI DEPT CLINICAL HISTORY: shortness of breath TECHNIQUE: 2D digital imaging was performed of the chest. One image was obtained. An AP view was ob tained. COMPARISON: CR XR RIBS LT W PA LAT CHEST from 07/03/2022 FINDINGS: MEDIASTINUM: Normal. HEART: Normal. PULMONARY VASCULATURE: Normal. LUNGS: Clear. PLEURAL SPACE: No pleural effusion or pneumothorax. BONE:Within normal limits for the patient's age. OTHER FINDINGS:Unchanged elevation of the right hemidiaphragm. IMPRESSION: No acute pulmonary findings. DATA REPOSITORY: RADIATION DOSE DELIVERED:
--- NOTE | 2023-09-17 04:30 | DI.CT_ITS ---
Exam(s) CT HEAD WO EXAM: CT HEAD WO CLINICAL HISTORY: hypertension nasuea vomiting. TECHNIQUE: Imaging Protocol: Axial computed tomography images with coronal and sagittal reformatted images were created and reviewed COMPARISON: CT HEAD WITH/WITHOUT CONTRAST from 05/25/2012 FINDINGS: Ventricles and Extra axial spaces: Normal in size and morphology for the patient's age. Hemorrhage: None. Cerebral parenchyma: Normal. No mass effect is present. Midline shift: None. Brainstem/Cerebellum: Normal. Calvarium: Normal. Visualized Paranasal sinuses/Mastoids: Mild mucosal thickening is seen in the left maxillary sinus. The remaining visualized paranasal sinuses and mastoid air cells are clear. Soft Tissues: Unremarkable. IMPRESSION: 1. No acute intracranial process. 2. Mild left maxillary sinusitis. RADIATION DOSE DELIVERED: 781.08mGy.cm Total DLP DATA REPOSITORY: All CT scans at this facility are submitted to the National Radiology Data Registry (NRDR) Dose Index Registry (DIR) with the [employer] ([employer]). RADIATION OPTIMIZATION: All CT scans at this facility use at least one of these dose optimization te chniques: automated exposure control; mA and/or kV adjustment per patient size (includes targeted exa ms where dose is matched to clinical indication); or iterative reconstruction.
--- NOTE | 2023-09-17 04:35 | ED.GENADUL_ITS ---
HPI General Mode of arrival: ambulatory . Date/Time Provider Initiated Documentation: 09/17/23 04:25 . Limitations to Documentation: no limitations . Information obtained by: patient and family . HPI Narrative: 42yo M with hx of HTN, CKD, GERD, COPD, gout, renal cell carcinoma, daily drinker, presenting with shortness of breath, arm tingling, nausea, and vomiting. Symptoms started at 0030 this morning and have been persistent and worsening since then. Drank his usual amount of alcohol yesterday, has not been cutting back; does have hx of ETOH withdrawal seizure but no history of DTs. Shortness of breath feels like he can't take in a full breath of air. Arm tingling is bilateral and symmetric, worst in his hands. No chest pain or back pain. No abdominal pain. No numbness or weakness. Mild headache, nausea, did vomit once nonbloody nonbilious emesis. Feels shaky. Took his usual medications yesterday; has not yet taken his morning meds. BP at home usually with SBP in 150's. He is otherwise in his usual state of health with no fevers, chills, rash, change in urine output, cough, rhinorhea, wheezing, LE edema, or other concerns. Related Data Home Medications Medication Instructions Recorded Confirmed albuterol sulfate 90 mcg/actuation 2 puff inhalation Q6H PRN 09/04/21 09/17/23 aerosol inhaler (ProAir HFA) atenolol 100 mg tablet 100 mg PO DAILY 09/04/21 09/17/23 buspirone 10 mg tablet 10 mg PO BID 09/04/21 09/17/23 sildenafil 50 mg tablet (Viagra) 50 mg PO DAILY PRN 09/04/21 09/17/23 chlordiazepoxide HCl 25 mg capsule 25 mg PO BID PRN 09/27/22 09/10/23 diphenhydramine HCl 25 mg capsule 25 mg PO QHS PRN 09/27/22 09/17/23 (Benadryl) escitalopram oxalate 10 mg tablet 10 mg PO DAILY 09/27/22 09/10/23 naltrexone 50 mg tablet 25 mg PO DAILY 09/27/22 09/17/23 pantoprazole 40 mg tablet,delayed 40 mg PO DAILY 09/27/22 09/17/23 release allopurinol 100 mg tablet 200 mg PO DAILY 10/29/22 09/17/23 gabapentin 300 mg capsule See Rx Instructions PO TID #150 03/11/23 09/17/23 caps mupirocin 2 % topical ointment 1 applic topical TID #15 grams 03/27/23 09/17/23 bupropion HCl 150 mg 24 hr tablet, 150 mg PO QAM 08/05/23 09/17/23 extended release losartan 25 mg tablet 25 mg PO DAILY 08/05/23 09/17/23 penicillin V potassium 500 mg 500 mg PO QID #40 tabs 09/07/23 09/17/23 tablet Previous Rx's Medication Instructions Recorded gabapentin 300 mg capsule See Rx Instructions PO TID #150 03/11/23 caps mupirocin 2 % topical ointment 1 applic topical TID #15 grams 03/27/23 penicillin V potassium 500 mg 500 mg PO QID #40 tabs 09/07/23 tablet Allergies Allergy/AdvReac Type Severity Reaction Status Date / Time morphine Allergy Unknown Unverified 09/17/23 04:26 bacitracin Allergy Verified 09/17/23 04:26 [From Neosporin ([id number])] neomycin Allergy Verified 09/17/23 04:26 [From Neosporin ([id number])] polymyxin B Allergy Verified 09/17/23 04:26 [From Neosporin ([id number])] hydromorphone HCl AdvReac Severe Visual Unverified 09/17/23 04:26 [From Dilaudid] Disturbances aspirin AdvReac HEARTBURN Unverified 09/17/23 04:26 sertraline AdvReac NAUSEA Unverified 09/17/23 04:26 General Stated Complaint: SOB/SuddenOnset MILTON: 3 Review of Systems Narrative: see HPI Exam Narrative Exam Narrative: General: Alert, anxious appearing Head: Normocephalic, atraumatic Neck: Trachea midline, ?Neck supple. ENT: ?MMM.? Cardiac: ?RRR, no murmurs appreciated. Strong symmetric radial pulses bilaterally. Resp: No respiratory distress. CTAB. Abd: ?Soft, non-distended, nontender : ?No suprapubic tenderness. No CVA tenderness. Extremities: ?No deformities.? No peripheral edema. GCS 15.? PERRL.? EOMI.? Fluent speech, no dysarthria. Normal sensation V1,V2,V3. No assymetry. Normal hearing to speech. Uvula midline. 5/5 head turn & shoulder shrug bilaterally. Midline tongue protrusion. Motor- 5/5 strength symmetric bilateral upper and lower extremities Sensation- ?Intact to light touch and symmetric multiple dermatomes including upper and lower extremities Coordination- No dysmetria on finger to nose Gait/station: ?Normal stance.? No truncal ataxia. Steady gait with equal normal steps Course Vital Signs Vital signs: Vital Signs Temperature 36.4 C L 09/17/23 04:14 Pulse 84 09/17/23 04:14 Respiratory Rate 18 09/17/23 04:14 Blood Pressure 240/124 H 09/17/23 04:14 Temperature 36.4 C L 09/17/23 04:14 Temperature Source Temporal Artery Scan 09/17/23 04:14 Pulse 84 09/17/23 04:14 Respiratory Rate 18 09/17/23 04:14 Respiratory Effort Short of Breath 09/17/23 04:19 Respiratory Depth Normal 09/17/23 04:19 Respiratory Pattern Normal 09/17/23 04:19 Blood Pressure 218/124 H 09/17/23 04:31 Medical Decision Making 42yo M with hx of HTN, CKD, GERD, COPD, gout, renal cell carcinoma, daily drinker, presenting with shortness of breath, arm tingling, nausea, and v omiting. History from patient and partner at bedside. Symptoms started at 0030 this morning and have been persistent and worsening since then. Hypertensive on arrival; initial BP 240/124, repeat without intervention 218/124. Pulse in 80's. Normal respiratory rate with no increased work of breathing, lungs CTAB. Subjectively short of breath but no respiratory distress on exam. Not concernin g for COPD excerbation. No chest pain or back pain to suggest aortic dissection. Normal neurologic exam. No hyperreflexia or clonus to suggest serotonin syndrome. History and exam not suggestive of acute alcohol withdrawal. PERC negative; would further pursue pulmonary embolism with dimer or CT imaging. EKG NSR, borderline prolonged QTc, no ST segment or T wave abnormalities to suggest occlusive MA. Reports he is usually around SBP 150's. Partner at bedside reports that since [place] his BP has been higher than usual, up to SBP 180's at home; recent increase in his losartan from 25mg to 75mg without improvement in his BP. CXR independently reviewed, no pneumothorax or pulmonary edema on my view, agree with radiology read below. Not consistent with SCAPE. Given severe hypertension with N/V, mild headache, will treat initially with IV metoprolol as patient is on beta blockade at home and has not taken his am medications yet. Will send labs & get head CT to evaluate for possible hypertensive emergency, PRES, etc. CT head independently reviewed, no large intracranial hemmoraghe on my view, radiology read below. Labs reviewed as below, CBC reassuring, CMP with Cr of 1.2 at baseline for pt on [facility] record review, potassium and mg both low (K of 2.9, Mg 1.4 Mg), TSH normal, initial troponin negative, BNP normal. Mg and K orally replaced. Given his am doses of atenolol and losartan as well as reglan for nausea. On reassessment he reports his symptoms are much improved, SBP now 190's. No indication of hypertensive emergency on workup. Signed out to oncoming physician, plan to followup repeat troponin and VS. Discharge home vs admission for BP management pending results. Imaging Data Radiologic Study: Imaging: X-Ray Radiologist's impression: IMPRESSION: No acute findings. Radiologic Study #2: Imaging: CT Scan Radiologist's impression: IMPRESSION: 1. Partial opacification of the left maxillary sinus may signify sinusitis. 2. No acute brain findings Lab Data Lab results reviewed: Yes I reviewed the patient's lab results. Quality:SDOH Health Related Social Needs: No Data to Display PFSH All Active Problems Crushing injury of finger of left hand (Acute) Degenerative joint disease of right knee (Chronic) Peripheral neuropathy (Acute) Shoulder pain, bilateral (Acute) Bursitis of elbow (Acute) Knee effusion, right (Acute) Hand pain, right (Acute) Sebaceous cyst (Acute) History of paresthesia (Acute) Bilateral knee pain (Acute) Chest pain (Acute) Acute dehydration (Acute) Cancer of kidney (Acute 03/01/14) 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 Medical History Headache Smoker Knee effusion, right Alcohol dependence Subareolar lump of breast Alcohol abuse Chronic kidney disease, stage 2 (mild) Chronic neck pain GERD (gastroesophageal reflux disease) Depression with anxiety COPD (chronic obstructive pulmonary disease) Renal cell carcinoma Nocturia Anemia Erectile dysfunction Gout Hypertension (03/01/14) 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 Depression (03/01/14) Surgical History H/O partial nephrectomy History of fusion of cervical spine knee surgery Left ACL 1996 Right knee surgery described as involving meniscus, ACL and MCL ~2010 Family History Father Hypertension Social History Smoking/Tobacco Use Status: Current every day Tobacco Type: cigarettes Smoking risk assessment performed?: Yes Alcohol Intake: current Alcohol Intake frequency: 3 or more drinks per day Alcohol type: beer Drug use: Daily Substance use type: marijuana Details: none today Household members: spouse Housing: apartment 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 Cr baseline, trop negative, no pulmonary edema. Hypokalemia and hypomag, orally replaced. Given reglan, metoprolol, home morning BP meds. Symptoms improved. Pending repeat troponin and reassessment. Last updated by Urmila Lazcano MD at 09/17/23 06:04 PAWSS Have you Been Recently Intoxicated or Drunk Within the Last 30 days?: Yes Have you Ever Experienced Previous Episodes of Alcohol Withdrawal?: Yes Have you ever Experienced Withdrawal Seizures?: No Have you ever Experienced Delirium Tremens(DT)s?: Yes Have you ever undergone Alcohol Rehabilitation Treatment (i.e, inpt ot outpatient treatment programs)?: Yes Have you ever Experienced Blackouts?: Yes Have you ever Combined Alcohol with other Downers within the last 90 days?: No Have you ever Combined Alcohol with any other Substance of Abuse during the last 90 days?: No Positive Blood Alcohol level on Presentation? [PCS.BAL]: No Evidence of Increased Autonomic Activity (i.e. HR>120, tremor, sweating, agitation, nausea)?: No Result: 5 Discharge Plan Discharge Details Chief Complaint: SOB/SuddenOnset Primary Care Provider: Shalini Zarate ED Provider: Urmila Lazcano Home Meds and New Rx's Prescriptions: No Action allopurinol 100 mg tablet 200 mg PO DAILY gabapentin 300 mg capsule See Rx Instructions PO TID Qty: 150 5RF Rx Instructions: 300mg TID x 1 week, then [phone] x 1 week, then [phone] thereafter orally three times a day; losartan 25 mg tablet 25 mg PO DAILY bupropion HCl 150 mg tablet extended release 24 hr 150 mg PO QAM penicillin V potassium 500 mg tablet 500 mg PO QID Qty: 40 0RF mupirocin 2 % ointment 1 applic topical TID Qty: 15 0RF albuterol sulfate [ProAir HFA] 90 mcg/actuation HFA aerosol inhaler 2 puff inhalation Q6H PRN atenolol 100 mg tablet 100 mg PO DAILY buspirone 10 mg tablet 10 mg PO BID sildenafil [Viagra] 50 mg tablet 50 mg PO DAILY PRN Rx Instructions: administer 30 minutes to 4 hours before activity naltrexone 50 mg tablet 25 mg PO DAILY chlordiazepoxide HCl 25 mg capsule 25 mg PO BID PRN escitalopram oxalate 10 mg tablet 10 mg PO DAILY diphenhydramine HCl [Benadryl] 25 mg capsule 25 mg PO QHS PRN Rx Instructions: 1-2 prn for sleep pantoprazole 40 mg tablet,delayed release (DR/EC) 40 mg PO DAILY
[2023-09-17 04:40] LABS: Abs Immature Grans 0.04 10^3/uL (0.0-0.06); Absolute Basophil Count 0.06 10^3/uL (0.0-0.2); Absolute Eosinophil Count 0.08 10^3/uL (0.0-0.7); Absolute Monocyte Count 0.84 10^3/uL (0.1-0.8); Absolute Neutrophil Count 5.49 10^3/uL (1.2-6.7); Basophils % 0.7; HCT 43.6 % (40.0-50.0); HGB 14.9 g/dL (13.5-17.5); Immature Grans % 0.5; Lymphocytes % 20.7; MCH 32.7 pg (27.0-33.0); MCHC 34.2 % (32.0-36.0); MCV 96 fL (80-95); Monocytes % 10.2; Neutrophils % 66.9; Platelet Count 184 10^3/uL (130-400); RBC 4.56 10^6/uL (4.36-5.78); RDW 13.4 % (11.8-14.1); RDW-SD 47.4 fL; WBC 8.21 10^3/uL (4.4-10.8)
[2023-09-17] MEDS: Metoprolol 5 MG/5 ML VIAL IVP (04:50)
[2023-09-17 05:04] LABS: TSH (W/Ref FT4) 3.37 uIU/mL (0.36-3.74)
[2023-09-17 05:06] LABS: ALT 26 U/L (16-63); AST 80 U/L (15-37); Albumin 2.8 g/dL (3.4-5.0); Alkaline Phosphatase 236 U/L (46-116); Anion Gap 11.2 mmol/L (3-11); BUN 4 mg/dL (7-18); Bilirubin, Total 0.9 mg/dL (0.2-1.0); CO2 30.8 mmol/L (21.0-32.0); CREATININE 1.2 mg/dL (0.70-1.30); Chloride 102 mmol/L (98-107); Estimated GFR 76.48 (mL/min/1.73m2); Glucose 129 mg/dL (74-106); NT-proBNP 218 pg/mL (<300); Sodium 144 mmol/L (136-145); Total Protein 7.2 g/dL (6.4-8.2); Troponin I < 50 ng/L (< or =60)
[2023-09-17 05:08] LABS: Potassium 2.9 mmol/L (3.5-5.1)
[2023-09-17 05:11] LABS: Magnesium 1.4 mg/dL (1.8-2.4)
[2023-09-17] MEDS: Metoclopramide 10 MG/2 ML VIAL IVP (05:23)
[2023-09-17] MEDS: Potassium Chloride 20 MEQ TABCR 40 MEQ PO (05:23)
--- NOTE | 2023-09-17 05:40 | DI.VRAD_ITS ---
PROCEDURE INFORMATION: Exam: CT Head Without Contrast Exam date and time: 09/17/2023 4:54 AM Age: 42 years old Clinical indication: Other: Hypertension nasuea vomiting TECHNIQUE: Imaging protocol: Computed tomography of the head without contrast. Radiation optimization: All CT scans at this facility use at least one of these dose optimization techniques: automated exposure control; mA and/or kV adjustment per patient size (includes targeted exams where dose is matched to clinical indication); or iterative reconstruction. COMPARISON: CR CERV SP.WITH OBL OR FLEX/EXT 10/04/2017 8:23 AM FINDINGS: Brain: No brain edema. No intracranial hemorrhage. Cerebral ventricles: No ventriculomegaly. Paranasal sinuses: Partial opacification of the left maxillary sinus may signify sinusitis. Mastoid air cells: Unremarkable. Bones/joints: Chronic fracture deformity of the medial wall of the right orbit. Soft tissues: Unremarkable. IMPRESSION: 1. Partial opacification of the left maxillary sinus may signify sinusitis. 2. No acute brain findings. Dictated and Authenticated by: Hank Briscoe MD. Ordering:ANNITA Kearns MD
--- NOTE | 2023-09-17 05:41 | DI.VRAD_ITS ---
PROCEDURE INFORMATION: Exam: XR Chest Exam date and time: 09/17/2023 5:03 AM Age: 42 years old Clinical indication: Shortness of breath; Patient HX: SOB TECHNIQUE: Imaging protocol: Radiologic exam of the chest. Views: 1 view. COMPARISON: CR XR RIBS LT W PA LAT CHEST 07/03/2022 10:24 AM FINDINGS: Lungs: Unremarkable. No consolidation. Pleural spaces: Unremarkable. No pleural effusion. No pneumothorax. Heart/Mediastinum: Unremarkable. No cardiomegaly. Diaphragm: Mild elevation of the right hemidiaphragm. Bones/joints: Unremarkable. IMPRESSION: No acute findings. Dictated and Authenticated by: Hank Briscoe MD. Ordering:ANNITA Kearns MD
[2023-09-17] MEDS: Atenolol 50 MG TAB 100 MG PO (06:01)
[2023-09-17] MEDS: Magnesium Gluconate 500 MG TAB 1000 MG PO (06:01)
[2023-09-17] MEDS: Losartan 50 MG TAB 75 MG PO (06:02)
[2023-09-17 08:17] LABS: Troponin I < 50 ng/L (< or =60)
--- NOTE | 2023-09-19 07:36 | NUR.NOTE ---
Accessed chart to determine orders for EKG and to determine whether or not one needs to be cancelled. Duplicate order cancelled. Nursing Note:
== END 2023-09-17 08:48 | disposition home or self-care (01) ==
PROVIDERS: Student in an Organized Health Care Education/Training Program; Emergency Provider Emergency Medicine; PCP Nurse Practitioner Family
DX: R06.02 Shortness of breath (principal); R11.2 Nausea with vomiting, unspecified; R20.2 Paresthesia of skin; F10.10 Alcohol abuse, uncomplicated; I12.9 Hypertensive chronic kidney disease with stage 1 through stage 4 chronic kidney disease, or unspecified chronic kidney disease; N18.2 Chronic kidney disease, stage 2 (mild); J44.9 Chronic obstructive pulmonary disease, unspecified; E87.6 Hypokalemia; E83.42 Hypomagnesemia; F17.210 Nicotine dependence, cigarettes, uncomplicated; Z98.1 Arthrodesis status; R94.31 Abnormal electrocardiogram [ECG] [EKG]
CPT/HCPCS: 80053; 93005; 96374; 96375; 99284; 70450; 71045; 83735; 83880; 84443; 84484; 85025; 93010; J2765

== ENCOUNTER 2023-10-08 15:21 | Outpatient (REF) | payer BC, SELFPAY ==
[2023-10-08 19:15] LABS: Anion Gap 10.1 mmol/L (3-11); BUN 3 mg/dL (7-18); CO2 30.9 mmol/L (21.0-32.0); CREATININE 1.2 mg/dL (0.70-1.30); Calcium 8.6 mg/dL (8.5-10.1); Chloride 100 mmol/L (98-107); Estimated GFR 76.48 (mL/min/1.73m2); Glucose 93 mg/dL (74-106); Magnesium 1.6 mg/dL (1.8-2.4); Sodium 141 mmol/L (136-145)
[2023-10-08 19:20] LABS: Potassium 2.9 mmol/L (3.5-5.1)
== END 2023-10-08 15:22 | disposition home or self-care (01) ==
LOC: NCHCN 15:21
PROVIDERS: PCP Nurse Practitioner Family; Visit Provider Nurse Practitioner Family
DX: R60.0 Localized edema (principal); I10 Essential (primary) hypertension
CPT/HCPCS: 80048; 83735

== ENCOUNTER 2023-10-16 20:50 | Outpatient (REF) | payer BC, SELFPAY ==
[2023-10-16 21:02] LABS: ALT 22 U/L (16-63); AST 70 U/L (15-37); Albumin 2.7 g/dL (3.4-5.0); Alkaline Phosphatase 244 U/L (46-116); BUN 3 mg/dL (7-18); Bilirubin, Total 1.5 mg/dL (0.2-1.0); CREATININE 1.3 mg/dL (0.70-1.30); Calcium 9.2 mg/dL (8.5-10.1); Chloride 101 mmol/L (98-107); Estimated GFR 69.47 (mL/min/1.73m2); Glucose 126 mg/dL (74-106); Potassium 3.3 mmol/L (3.5-5.1); Sodium 141 mmol/L (136-145); Total Protein 7.5 g/dL (6.4-8.2)
== END 2023-10-16 20:51 | disposition home or self-care (01) ==
LOC: NCHCN 20:50
PROVIDERS: PCP Nurse Practitioner Family; Visit Provider Nurse Practitioner Family
DX: I10 Essential (primary) hypertension (principal); R60.0 Localized edema; R79.89 Other specified abnormal findings of blood chemistry
CPT/HCPCS: 80053

== ENCOUNTER 2024-01-07 14:40 | Outpatient (REF) | payer BC, SELFPAY ==
[2024-01-07 16:33] LABS: Anion Gap 9.9 mmol/L (3-11); BUN 6 mg/dL (7-18); CO2 27.1 mmol/L (21.0-32.0); CREATININE 1.2 mg/dL (0.70-1.30); Calcium 9.3 mg/dL (8.5-10.1); Chloride 103 mmol/L (98-107); Glucose 77 mg/dL (74-106); Potassium 3.9 mmol/L (3.5-5.1); Sodium 140 mmol/L (136-145)
== END 2024-01-07 14:41 | disposition home or self-care (01) ==
LOC: NCHCN 14:40
PROVIDERS: PCP Nurse Practitioner Family; Visit Provider Family Medicine
DX: K74.60 Unspecified cirrhosis of liver (principal)
CPT/HCPCS: 80048

== ENCOUNTER 2024-02-24 17:45 | Outpatient (REF) | payer BC, SELFPAY ==
[2024-02-24 21:14] LABS: Basophils % 0.6 %; Eosinophils % 1.3 %; HCT 45.1 % (40.0-50.0); HGB 15.5 g/dL (13.5-17.5); Lymphocytes % 25.4 %; MCH 33.4 pg (27.0-33.0); MCHC 34.4 % (32.0-36.0); MCV 97 fL (80-95); Monocytes % 8.6 %; Neutrophils % 63.5 %; Platelet Count 194 10^3/uL (130-400); RBC 4.64 10^6/uL (4.36-5.78); WBC 11.96 10^3/uL (4.4-10.8)
[2024-02-24 21:15] LABS: Abs Immature Grans 0.07 10^3/uL (0.0-0.06); Absolute Basophil Count 0.07 10^3/uL (0.0-0.2); Absolute Eosinophil Count 0.16 10^3/uL (0.0-0.7); Absolute Lymphocyte Count 3.04 10^3/uL (1.2-3.4); Absolute Monocyte Count 1.03 10^3/uL (0.1-0.8); Absolute Neutrophil Count 7.59 10^3/uL (1.2-6.7); Immature Grans % 0.6 %
[2024-02-24 21:29] LABS: ALT 27 U/L (16-63); AST 68 U/L (15-37); Albumin 3.3 g/dL (3.4-5.0); Alkaline Phosphatase 223 U/L (46-116); Anion Gap 10.4 mmol/L (3-11); BUN 4 mg/dL (7-18); Bilirubin, Total 1.44 mg/dL (0.2-1.0); CO2 27.6 mmol/L (21.0-32.0); CREATININE 1.4 mg/dL (0.70-1.30); Calcium 9.3 mg/dL (8.5-10.1); Chloride 96 mmol/L (98-107); Estimated GFR 63.17 (mL/min/1.73m2); Glucose 99 mg/dL (74-106); Lipase 15 U/L (16-77); Sodium 134 mmol/L (136-145); Total Protein 7.5 g/dL (6.4-8.2)
[2024-02-26 10:53] LABS: Lyme Ab w Rflx to Lyme Confirm Negative (Negative)
[2024-02-28 12:59] LABS: Anaplasma phagocytophilum Negative (Negative); B. miyamotoi PCR Negative (Negative); Babesia divergens/MO-1 Negative (Negative); Babesia duncani Negative (Negative); Babesia microti Negative (Negative); Ehrlichia chaffeensis Negative (Negative); Ehrlichia ewingii/canis Negative (Negative); Ehrlichia muris eauclairensis Negative (Negative)
== END 2024-02-24 17:46 | disposition home or self-care (01) ==
LOC: LBN 17:45
PROVIDERS: PCP Nurse Practitioner Family; Visit Provider Physician Assistant
DX: R10.9 Unspecified abdominal pain (principal); R11.10 Vomiting, unspecified
CPT/HCPCS: 80053; 83690; 87798; 85025; 86618

== ENCOUNTER 2024-03-11 20:54 | Outpatient (REF) | payer BC, SELFPAY ==
[2024-03-11 21:58] LABS: Bilirubin Negative (Negative); Blood Negative (Negative); Clarity Clear (Clear); Glucose Negative (Negative); Ketones Negative (Negative); Leukocyte Esterase Negative (Negative); Nitrite Negative (Negative); Specific Gravity 1.015 (1.005-1.025); pH 6.5 (5-8)
== END 2024-03-11 20:55 | disposition home or self-care (01) ==
LOC: NCHCN 20:54
PROVIDERS: PCP Nurse Practitioner Family; Visit Provider Family Medicine
DX: R10.9 Unspecified abdominal pain (principal); R82.998 Other abnormal findings in urine
CPT/HCPCS: 81003; 87086

== ENCOUNTER 2024-08-13 15:29 | Outpatient (CLI) | payer BC, SELFPAY ==
--- NOTE | 2024-08-13 10:15 | DI.RAD_ITS ---
Exam(s) XR KNEE LT 4V AP,LAT,THIEN,PAT EXAM: XR KNEE LT 4V AP,LAT,THIEN,PAT CLINICAL HISTORY: eval L knee pain. TECHNIQUE: 2D digital imaging was performed of the left knee. Five images were obtained. Merchant, AP, lateral and PA tunnel views were obtained. COMPARISON: CR XR STANDING ALIGNMENT from 08/05/2023 FINDINGS: BONES: No acute fracture is present. No bony destructive lesion is seen. There again seen postsurgic al changes of a prior ACL repair. JOINTS: There is joint space narrowing in the femoral tibial joints. The findings are most marked la terally. Osteophytes are seen involving all 3 joint compartments. There is a moderate size joint ef fusion. No loose body. SOFT TISSUE: Normal. IMPRESSION: Moderate osteoarthritis of the left knee. DATA REPOSITORY: RADIATION DOSE DELIVERED:
== END 2024-08-13 15:30 | disposition home or self-care (01) ==
LOC: DIORS 15:30
PROVIDERS: PCP Family Medicine; Visit Provider Student in an Organized Health Care Education/Training Program
DX: M25.562 Pain in left knee (principal)
CPT/HCPCS: 73564

== ENCOUNTER 2024-09-16 01:57 | Outpatient (CLI) | payer BC, SELFPAY ==
[2024-09-16 16:01] LABS: Abs Immature Grans 0.06 10^3/uL (0.0-0.06); Basophils % 0.8 %; Eosinophils % 2.4 %; HCT 42.8 % (40.0-50.0); HGB 15.1 g/dL (13.5-17.5); Immature Grans % 0.5 %; Lymphocytes % 29.9 %; MCH 37.2 pg (27.0-33.0); MCHC 35.3 % (32.0-36.0); MCV 105 fL (80-95); MPV 9.7 fL (8.0-11.0); Monocytes % 7.1 %; Neutrophils % 59.3 %; Platelet Count 204 10^3/uL (130-400); RBC 4.06 10^6/uL (4.36-5.78); RDW 14.1 % (11.8-14.1); RDW-SD 54.9 fL; WBC 12.73 10^3/uL (4.4-10.8)
[2024-09-16 16:08] LABS: INR 1.2 (0.9-1.1); Prothrombin Time 11.5 sec (9.1-11.1)
[2024-09-16 16:45] LABS: ALT 33 U/L (16-63); AST 96 U/L (15-37); Albumin 3.2 g/dL (3.4-5.0); Alkaline Phosphatase 174 U/L (46-116); Anion Gap 10.8 mmol/L (3-11); BUN 5 mg/dL (7-18); Bilirubin, Total 1.34 mg/dL (0.2-1.0); CO2 28.2 mmol/L (21.0-32.0); CREATININE 1.2 mg/dL (0.70-1.30); Calcium 9.3 mg/dL (8.5-10.1); Chloride 100 mmol/L (98-107); Glucose 89 mg/dL (74-106); Potassium 3.6 mmol/L (3.5-5.1); Sodium 139 mmol/L (136-145); Total Protein 7.5 g/dL (6.4-8.2)
[2024-09-16 16:57] LABS: Iron 96 ug/dL (65-175); Total Iron Binding Capacity 325 ug/dL (250-450); Transferrin Sat 30 % (20-55)
[2024-09-16 16:59] LABS: Ferritin 179 ng/mL (26-388)
[2024-09-16 18:15] LABS: Absolute Eosinophil Count 0.31 10^3/uL (0.0-0.7); Absolute Lymphocyte Count 3.81 10^3/uL (1.2-3.4); Absolute Neutrophil Count 7.55 10^3/uL (1.2-6.7)
[2024-09-16 18:16] LABS: Diff Comment RBC Morph Reviewed; Macrocytosis 2+
[2024-09-16 22:38] LABS: AFP Tumor Marker 3.6 ng/mL (<8.1)
[2024-09-16 23:19] LABS: HBs Antibody, Quant <3.1 mIU/mL (See Note); Hepatitis B Surface Ab Negative (See Note)
[2024-09-16 23:32] LABS: Hepatitis B Surface Ag Negative (Negative)
[2024-09-16 23:57] LABS: Hepatitis C Ab w Rflx HCV PCR Negative (Negative)
[2024-09-17 00:01] LABS: Hep B Core Antibody Negative (Negative)
[2024-09-17 11:35] LABS: Tissue Transglutaminase IgA <4.0 CU (<20.0)
[2024-09-17 11:37] LABS: Alpha 1 Antitrypsin,Serum 156 mg/dL (90-200)
[2024-09-17 12:24] LABS: IgG 1348 mg/dL (610-1616)
[2024-09-17 13:36] LABS: ANA Interpretation Negative (Negative)
[2024-09-18 14:27] LABS: Mitochondrial Ab, M2 <0.1 U
[2024-09-18 15:10] LABS: Smooth Muscle Ab Screen Negative (Negative)
[2024-09-18 16:25] LABS: Ceruloplasmin 29.6 mg/dL
[2024-09-18 18:45] LABS: Liver/Kidney Microsome Type 1 <5.0 U
== END 2024-09-16 01:58 | disposition home or self-care (01) ==
LOC: LBO 01:57
PROVIDERS: PCP Family Medicine; Visit Provider Nurse Practitioner Family
DX: K74.60 Unspecified cirrhosis of liver (principal); F10.20 Alcohol dependence, uncomplicated
CPT/HCPCS: 36415; 80048; 80053; 82390; 82784; 83516; 85027; 86704; 86706; 86803; 87340; 82103; 82105; 82728; 83540; 83550; 85025; 85610; 86038; 86255

== ENCOUNTER 2024-12-01 16:19 | Outpatient (REF) | payer BC, SELFPAY ==
[2024-12-01 19:49] LABS: ALT 31 U/L (16-63); AST 33 U/L (15-37); Albumin 3.6 g/dL (3.4-5.0); Alkaline Phosphatase 149 U/L (46-116); Anion Gap 7.7 mmol/L (3-11); BUN 18 mg/dL (7-18); CO2 28.3 mmol/L (21.0-32.0); CREATININE 1.4 mg/dL (0.70-1.30); Calcium 9.4 mg/dL (8.5-10.1); Chloride 104 mmol/L (98-107); Estimated GFR 62.77 (mL/min/1.73m2); Glucose 115 mg/dL (74-106); Potassium 5.4 mmol/L (3.5-5.1); Sodium 140 mmol/L (136-145); Total Protein 7.5 g/dL (6.4-8.2)
== END 2024-12-01 16:20 | disposition home or self-care (01) ==
LOC: NCHCN 16:19
PROVIDERS: PCP Family Medicine; Visit Provider Family Medicine
DX: F10.20 Alcohol dependence, uncomplicated (principal)
CPT/HCPCS: 80053; 85610

== ENCOUNTER 2024-12-16 03:29 | Outpatient (CLI) | payer BC, SELFPAY ==
[2024-12-16 11:54] LABS: HCT 39.4 % (40.0-50.0); HGB 13.9 g/dL (13.5-17.5); MCH 34.6 pg (27.0-33.0); MCHC 35.3 % (32.0-36.0); MCV 98 fL (80-95); MPV 9.8 fL (8.0-11.0); Platelet Count 164 10^3/uL (130-400); RBC 4.02 10^6/uL (4.36-5.78); RDW 13.2 % (11.8-14.1); RDW-SD 47.2 fL; WBC 8.99 10^3/uL (4.4-10.8)
[2024-12-16 12:07] LABS: INR 1.2 (0.9-1.1); Prothrombin Time 11.9 sec (9.1-11.1)
[2024-12-16 12:13] LABS: Anion Gap 7.2 mmol/L (3-11); BUN 9 mg/dL (7-18); CO2 29.8 mmol/L (21.0-32.0); CREATININE 1.5 mg/dL (0.70-1.30); Calcium 9.4 mg/dL (8.5-10.1); Chloride 104 mmol/L (98-107); Estimated GFR 57.79 (mL/min/1.73m2); GGT 570 U/L (15-85); Glucose 105 mg/dL (74-106); Potassium 4.5 mmol/L (3.5-5.1); Sodium 141 mmol/L (136-145)
== END 2024-12-16 03:30 | disposition home or self-care (01) ==
PROVIDERS: Student in an Organized Health Care Education/Training Program; PCP Family Medicine; Visit Provider Family Medicine
DX: M17.11 Unilateral primary osteoarthritis, right knee (principal); F10.20 Alcohol dependence, uncomplicated
CPT/HCPCS: 36415; 80048; 85027; 82977; 85610

== ENCOUNTER 2024-12-16 11:23 | Outpatient (CLI) | payer BC, SELFPAY ==
--- NOTE | 2024-12-16 10:00 | DI.RAD_ITS ---
Exam(s) XR STANDING ALIGNMENT EXAM: XR STANDING ALIGNMENT CLINICAL HISTORY: PRE OP BILAT TKAs. TECHNIQUE: 2D digital imaging was performed. Four images were obtained. COMPARISON: CR XR STANDING ALIGNMENT from 08/05/2023 CR XR KNEE RT 1V from 08/05/2023 CR XR KNEE LT 4V AP,LAT,THIEN,PAT from 08/13/2024 FINDINGS: BONES: The hips are well maintained. In the right knee, there are marked degenerative changes presen t. Findings include [id number] narrowing of the medial femoral tibial joint. There osteophytes se en both medially and laterally. There are findings of a prior ACL repair. In the left knee, degener ative changes are present with osteophyte seen particularly laterally. There is chondrocalcinosis in the lateral femoral tibial joint. There are findings of a prior ACL repair. The ankles are well ma intained.There is no significant leg length discrepancy. SOFT TISSUE: Normal. IMPRESSION: Osteoarthritis of the knees, right greater than left. DATA REPOSITORY: RADIATION DOSE DELIVERED:
== END 2024-12-16 11:24 | disposition home or self-care (01) ==
LOC: DIORS 11:23
PROVIDERS: PCP Family Medicine; Visit Provider Physician Assistant
DX: M17.12 Unilateral primary osteoarthritis, left knee (principal); M17.11 Unilateral primary osteoarthritis, right knee
CPT/HCPCS: 77073

== ENCOUNTER 2024-12-30 05:49 | Day surgery (SDC) | payer BC, SELFPAY ==
[2024-12-30] VITALS (29 sets, daily range): BP systolic 118–164; BP diastolic 74–106; PULSE 51–75; RESP 10–16; TEMP 36.3–36.8; O2SAT 93–100; BMI 32.5
[2024-12-30] MEDS: Acetaminophen 500 MG TAB 1000 MG PO (06:55)
[2024-12-30] MEDS: Celecoxib 200 MG CAP 400 MG PO (06:55)
[2024-12-30] MEDS: Gabapentin 300 MG CAP PO (06:55)
--- NOTE | 2024-12-30 07:02 | ANES.PREOP_ITS ---
General Info Date of Service Date Performed: 12/30/24 Height: 6 ft Weight: 109.1 kg Body Mass Index (BMI): 32.5 Surgical Procedure: Operation Date: 12/30/24 07:50 Proposed Procedure Side Surgeon p Knee Total Arthroplasty Bilateral Bilateral Asif Hackett MD Meds Allergies and Home Medications Allergies Allergy/AdvReac Type Severity Reaction Status Date / Time morphine Allergy Unknown Unknown Verified 12/30/24 06:16 bacitracin (From Neosporin Allergy Unknown Verified 12/30/24 06:16 ([id number])) neomycin (From Neosporin Allergy Unknown Verified 12/30/24 06:16 ([id number])) polymyxin B (From Neosporin Allergy Unknown Verified 12/30/24 06:16 ([id number])) hydromorphone HCl (From AdvReac Severe Visual Verified 12/30/24 06:16 Dilaudid) Disturbances aspirin AdvReac HEARTBURN Verified 12/30/24 06:16 sertraline AdvReac NAUSEA Verified 12/30/24 06:16 Home Medication ?Medication ?Instructions ?Recorded albuterol sulfate 90 mcg/actuation 2 puff inhalation Q6H PRN 09/04/21 aerosol inhaler (ProAir HFA) atenolol 100 mg tablet 100 mg PO DAILY 09/04/21 sildenafil 50 mg tablet (Viagra) 50 mg PO DAILY PRN 09/04/21 chlordiazepoxide HCl 25 mg capsule 25 mg PO BID PRN 09/27/22 diphenhydramine HCl 25 mg capsule 25 mg PO QHS PRN 09/27/22 (Benadryl) pantoprazole 40 mg tablet,delayed 40 mg PO DAILY 09/27/22 release allopurinol 100 mg tablet 200 mg PO DAILY 10/29/22 bupropion HCl 150 mg 24 hr tablet, 150 mg PO QAM 08/05/23 extended release losartan 25 mg tablet 25 mg PO DAILY 08/05/23 cyclobenzaprine 10 mg tablet 10 mg PO HS PRN muscle spasm #10 10/23/23 tabs buspirone 10 mg tablet 15 mg PO BID 12/16/24 naltrexone 50 mg tablet 50 mg PO DAILY 12/16/24 pregabalin 150 mg capsule 150 mg PO TID 12/16/24 spironolactone 100 mg tablet 100 mg PO DAILY 12/16/24 acetaminophen 500 mg tablet 1,000 mg (2 x 500 mg) PO TID #90 12/30/24 tabs aspirin 81 mg tablet,delayed 81 mg PO BID #60 tabs 12/30/24 release celecoxib 200 mg capsule 200 mg PO BID #60 caps 12/30/24 dexamethasone 4 mg tablet 4 mg PO DAILY #2 tabs 12/30/24 docusate sodium 100 mg capsule 100 mg PO BID PRN #28 caps 12/30/24 gabapentin 300 mg capsule 300 mg PO QHS #14 caps 12/30/24 hydroxyzine HCl 50 mg tablet mg 12/30/24 oxycodone 5 mg tablet 5 mg PO Q4H PRN #18 tabs 12/30/24 Current Visit Medications: Current Medications Generic Name Dose Route Start Last Admin Trade Name Freq PRN Reason Stop Dose Admin Acetaminophen 1,000 mg 12/30/24 06:00 12/30/24 06:55 Acetaminophen 500 Mg Tab PO 01/23/25 23:59 1,000 mg PREOP JENY Administration Celecoxib 400 mg 12/30/24 06:00 12/30/24 06:55 Celecoxib 200 Mg Cap PO 01/23/25 23:59 400 mg PREOP JENY Administration Gabapentin 300 mg 12/30/24 06:00 12/30/24 06:55 Gabapentin 300 Mg Cap PO 01/23/25 23:59 300 mg PREOP JENY Administration Ringer's Solution 1,000 mls @ 80 mls/hr 12/30/24 06:00 IV 01/23/25 23:59 INFUSION JENY Cefazolin Sodium/Dextrose 2 gm in 50 mls @ 100 mls/hr 12/30/24 06:00 Ancef Duplex IVPB 01/23/25 23:59 PREOP JENY Tranexamic Acid/Sodium Chloride 1,000 mg in 100 mls @ 600 mls/hr 12/30/24 06:00 IVPB 01/23/25 23:59 PREOP JENY Tranexamic Acid/Sodium Chloride 1,000 mg in 100 mls @ 600 mls/hr 12/30/24 06:00 IVPB 01/23/25 23:59 DIRECTED JENY IV Miscellaneous Supplies 1 each 12/30/24 06:00 Iv Access IV 01/23/25 23:59 DIRECTED JENY Sodium Chloride 0 ml 12/30/24 06:00 Normal Saline Flush 10 Ml Syr IV 01/23/25 23:59 PRN PRN Sodium Chloride 0 ml 12/30/24 06:00 Normal Saline 10 Ml Vial IJ 01/23/25 23:59 DIRECTED PRN Sterile Water 0 ml 12/30/24 06:00 Water,Injection,Sterile 10 Ml Vial IJ 01/23/25 23:59 DIRECTED PRN PFSH Active Problems Active Problems: Problem Status Onset Code Arthritis of left knee Chronic M17.12 Crushing injury of finger of left hand Acute S67.10XA 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 M17.11 Peripheral neuropathy Acute G62.9 Shoulder pain, bilateral Acute M25.511, M25.512 Bursitis of elbow Acute M70.30 Knee effusion, right Acute M25.461 Hand pain, right Acute M79.641 Sebaceous cyst Acute L72.3 History of paresthesia Acute Z87.898 Bilateral knee pain Acute M25.561, M25.562 Chest pain Acute R07.9 Acute dehydration Acute E86.0 Cancer of kidney Acute 03/01/14 C64.9 Medical History Medical History Headache Smoker Knee effusion, right Alcohol dependence Subareolar lump of breast Alcohol abuse Chronic kidney disease, stage 2 (mild) Chronic neck pain GERD (gastroesophageal reflux disease) Depression with anxiety COPD (chronic obstructive pulmonary disease) Renal cell carcinoma Nocturia Anemia Erectile dysfunction Gout Hypertension (03/01/14) 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 Depression (03/01/14) Medical History Comments:: Smokes marijauna at night approx 1 bowl. Last night. Cigarette last night as well. Surgical History Surgical History H/O partial nephrectomy History of fusion of cervical spine knee surgery Left ACL 1996 Right knee surgery described as involving meniscus, ACL and MCL ~2010 Tobacco Smoking/Tobacco Use Status: Current every day Tobacco Type: cigarettes Passive smoking exposure: Yes Alcohol Alcohol Intake: former Substance Use Substance use: Daily Substance use type: marijuana Details: Last night 1999 Vital Signs and Lab Results Vital Signs Most Recent Vital Signs in EMR: Most Recent Vital Signs Temp Pulse Resp BP Pulse Ox 36.6 C 71 16 158/106 H 98 12/30/24 06:00 12/30/24 06:00 12/30/24 06:00 12/30/24 06:00 12/30/24 06:00 Lab Results Blood Type / Crossmatch: No Data to Display Complete Blood Count: White Blood Count 8.99 10^3/uL (4.4-10.8) 12/16/24 11:35 Red Blood Count 4.02 10^6/uL (4.36-5.78) L 12/16/24 11:35 Hemoglobin 13.9 g/dL (13.5-17.5) 12/16/24 11:35 Hematocrit 39.4 % (40.0-50.0) L 12/16/24 11:35 Platelet Count 164 10^3/uL (130-400) 12/16/24 11:35 Complete Metabolic Panel: Sodium 141 mmol/L (136-145) 12/16/24 11:35 Potassium 4.5 mmol/L (3.5-5.1) 12/16/24 11:35 Chloride 104 mmol/L (98-107) 12/16/24 11:35 Carbon Dioxide 29.8 mmol/L (21.0-32.0) 12/16/24 11:35 BUN 9 mg/dL (7-18) 12/16/24 11:35 Creatinine 1.5 mg/dL (0.70-1.30) H 12/16/24 11:35 Est GFR (CKD-EPI 2020) 57.79 (mL/min/1.73m2) 12/16/24 11:35 Calcium 9.4 mg/dL (8.5-10.1) 12/16/24 11:35 Albumin 3.6 g/dL (3.4-5.0) 12/01/24 12:35 Glucose 105 mg/dL (74-106) 12/16/24 11:35 Liver Function Panel: Alanine Aminotransferase (ALT/SGPT) 31 U/L (16-63) 12/01/24 12: 35 Aspartate Amino Transf (AST/SGOT) 33 U/L (15-37) 12/01/24 12:35 Gamma Glutamyl Transpeptidase 570 U/L (15-85) H 12/16/24 11:35 Coagulation Panel: INR International Normalized Ratio 1.2 (0.9-1.1) H 12/16/24 11 :35 Prothrombin Time 11.9 sec (9.1-11.1) H 12/16/24 11:35 Cardiac Panel: No Data to Display Arterial Blood Gas: No Data to Display Venous Blood Gas: No Data to Display Pancreas Panel: No Data to Display Thyroid Panel: No Data to Display Infectious Disease: No Data to Display Blood Cultures: No Data to Display Toxicology Panel: No Data to Display Anesthesia Assessment and Plan Anesthesia History Personal History: No History of Anesthesia Complications Family History: No Family History of Anesthesia Complications Exercise Tolerance Exercise Tolerance: Metabolic Equivalents>4 Pertinent Negatives Pertinent Negatives: No Symptoms of GERD Cardiac & Pulmonary Exam Cardiac Exam: Normal S1/S2 Heart Sounds Pulmonary Exam: Clear Bilateral Breath Sounds Implantable Cardiac Device Does patient have a Pacemaker or an ICD?: No Airway Exam Known Difficult Airway: No Mallampati Class: 2 Mouth Opening: Normal (> 3cm) Thyromental Distance: Greater than 3 cm Neck Range of Motion: Full ROM and History of Cervical Fusion Neck Circumference: Normal Teeth Condition: Normal Dentition ASA Classification ASA Score: ASA 3 Emergency Case?: No NPO Status NPO Status: NPO Clears >2 hours, Solids >8 hours Anesthesia Plan Resuscitation Status: Full Code Anesthesia Technique: Spinal Anesthesia Airway Planned: Natural Airway Pain Management: Surgeon and patient request nerve block Monitors Used: Standard Monitors
--- NOTE | 2024-12-30 07:14 | PDOC.DSDIS_ITS ---
Date of service: 12/30/24 Discharge Plan Disposition Patient Disposition: Home Condition: Good Discharge Details Reason For Visit: B/L TKR Attending Provider: Asif Hackett Primary Care Provider: Emilee Lux V Home Meds and New Rx's Prescriptions: New acetaminophen 500 mg tablet 1,000 mg PO TID Qty: 90 3RF aspirin 81 mg tablet,delayed release (DR/EC) 81 mg PO BID Qty: 60 0RF celecoxib 200 mg capsule 200 mg PO BID Qty: 60 0RF dexamethasone 4 mg tablet 4 mg PO DAILY Qty: 2 0RF docusate sodium 100 mg capsule 100 mg PO BID PRNQty: 28 0RF gabapentin 300 mg capsule 300 mg PO QHS Qty: 14 0RF oxycodone 5 mg tablet 5 mg PO Q4H PRNQty: 18 0RF Continued allopurinol 100 mg tablet 200 mg PO DAILY losartan 25 mg tablet 25 mg PO DAILY bupropion HCl 150 mg tablet extended release 24 hr 150 mg PO QAM spironolactone 100 mg tablet 100 mg PO DAILY naltrexone 50 mg tablet 50 mg PO DAILY buspirone 10 mg tablet 15 mg PO BID pregabalin 150 mg capsule 150 mg PO TID cyclobenzaprine 10 mg tablet 10 mg PO HS PRN (Reason: muscle spasm) Qty: 10 0RF albuterol sulfate [ProAir HFA] 90 mcg/actuation HFA aerosol inhaler 2 puff inhalation Q6H PRN atenolol 100 mg tablet 100 mg PO DAILY sildenafil [Viagra] 50 mg tablet 50 mg PO DAILY PRN Rx Instructions: administer 30 minutes to 4 hours before activity chlordiazepoxide HCl 25 mg capsule 25 mg PO BID PRN diphenhydramine HCl [Benadryl] 25 mg capsule 25 mg PO QHS PRN Rx Instructions: 1-2 prn for sleep pantoprazole 40 mg tablet,delayed release (DR/EC) 40 mg PO DAILY hydroxyzine HCl 50 mg tablet Patient Comments: TAKE 1 TABLET BY MOUTH TWICE DAILY NEEDED Discontinued celecoxib 200 mg capsule 200 mg PO DAILY Qty: 30 0RF Discharge Instructions Additional Instructions: Total Knee Discharge Instructions Activity: The most important activity is to walk and to work on gentle motion (both flexion and extension). You should try to take short walks a few times a day. It is important that when resting you work on keeping the knee straight. Avoid putting a pillow behind the knee as this will encourage flexion. Work on range of motion exercises as provided by Physical Therapy. - Start outpatient physical therapy within 2 weeks. - You should wear the EMILY hose on both legs for 2 weeks. You may remove these at night. You may also use any compression sock in place of the EMILY hose. - Utilize [employer] to review exercises, see videos on exercises and obtain basic information pertaining to your surgery and your recovery. Dressing: Remove the Kulwinder wrap by 2 days after your surgery and put on the EMILY stocking given to you from the hospital. Keep the surgical dressing (underneath the KULWINDER wrap) in place for at least one week. After the first week it may be removed and replaced with light gauze and tape or nothing. The wound and dressing may get wet after 3 days but avoid soaking the dressing or otherwise it will need to be changed. Many people prefer covering the dressing with cling wrap (saran wrap) to minimize it from getting soaked. If it gets wet, just pat dry. If it starts to peel off then it will need to be changed. Medications: - You should take Tylenol and anti-inflammatory Celebrex as your primary pain control medications. If the Celebrex is too expensive or not covered, please call the office for another alternative (Advil/Ibuprofen or Naproxen/Aleve) - You have been prescribed a stronger pain medication Oxycodone for breakthrough pain, take as needed as prescribed. - You continue your stomach acid reduction agent Pantoprozole to help reduce stomach acid and reflux. - You have been prescribed Gabapentin to take at night for restlessness and nerve pain. - You will be taking Aspirin 81mg twice a day for DVT prevention unless instructed otherwise. - You have also been prescribed Decadron to take to control post-operative nause a and pain. You will start this tomorrow. - If you have constipation you should take Colace or Miralax (both [id number]). It takes most people 3-4 days to have a bowel movement. Follow-up: 2 weeks If you have any acute concerns or questions, please do not hesitate to contact the office at [phone]. You may contact Dr. Hackett with any questions after hours through the hospital at [phone] or on his cell phone at [phone]. Referrals: Asif Hackett MD [ [facility] STAFF PHYSICIAN] - Equipment/Supplies: Walker Activity:: Activity as Tolerated Shower/Bathe:: Cover Diet:: As Tolerated Discharge Orders Discharge Orders: Discharge Order (Routine); Ordered 12/30/24 Ordered By: Calvin Gama DS: Diagnosis Discharge Diagnosis (1) Degenerative joint disease of right knee: Status: Chronic (2) Arthritis of left knee: Status: Chronic
[2024-12-30] MEDS: Lactated Ringers 1,000 ML 80 ML IV (07:15)
--- NOTE | 2024-12-30 07:36 | W.PM.OP ---
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 Depuy Attune Cementless Cruciate Retaining Femoral Component, Size 7 2. Depuy Attune Cementless Fixed Bearing Tibial Component, Size 6 3. Depuy Attune 7x8mm CR/FB Poly LEFT: 1. Depuy Attune Cementless Cruciate Retaining Femoral Component, Size 6 2. Depuy Attune Cementless Fixed Bearing Tibial Component, Size 6 3. Depuy Attune 6x10mm CR/FB Poly Indications: I have seen Stanley in clinic for symptoms of bilateral knee arthritis, confirmed with radiographic findings. He has exhausted nonoperative methods and was having significant limitations in daily function and desired better function and less pain. I discussed the technical details of a knee replacement. I explained the risks of the procedure to include, but not limited to, bleeding, infection, pain, stiffness, fracture, damage to nerves and vessels, damage to muscles and tendons, loosening, need for repeat procedure, blood clot and cardiopulmonary demise. Despite these risks, Stanley elected to proceed. Findings: There was significant signs of arthritis throughout the knee, mostly involving both medial and lateral compartments of the femur and the tibia with large osteophytes. Procedure Description: Stanley was greeted in the preoperative holding area where the correct side was identified and marked. The consent was reviewed with the patient and signed. The history and physical was updated. All questions were answered. Preoperative mediacations were administered: Acetaminophen 1000mg, Celebrex 400mg, and Gabapentin 300mg. An adductor canal block was then administered by the anesthesia team in the DSU. He was taken back to the operating room. A spinal anesthestic was then administered. The patient was placed into the supine position on the operating room table. Posts were placed for positioning during the procedure. All bony prominences were well padded. Prophylactic antibiotics in the form of Cefazolin were administered. 1g of Tranxemic Acid was given intravenously within 30 minutes of incision. Both legs were then prepped with Chloraprep and draped in a standard fashion with impervious stockinette. A timeout to confirm correct identity, side and site, procedure, allergies, anesthesia, and medical concerns was performed. RIGHT KNEE: Starting with the right knee, a second prep with Chloraprep was performed prior to application of Iodine impregnated skin protection. With the knee in some flexion, a midline incision was made overlying the knee. Full thickness skin flaps were raised once the extensor mechanism was encountered. These were raised medially and laterally. Any bleeding was controlled with electrocautery. There were signs of a chronic patellar bursitis. Once the extensor mechanism was fully exposed, a medial parapatellar arthrotomy was performed in a flexed position. All bleeding from the arthrotomy and the geniculate arteries was coagulated. A medial subperiosteal peel was performed with electrocautery to the midcoronal plane. The fat pad was removed while keeping the patellar tendon protected. The anterior distal femur synovium was removed for later visualization. The ACL and PCL were resected and the anterior horn of the lateral meniscus was transected. The knee was then flexed with the patella everted. Large osteophytes from the tibia were removed. Large osteophytes from the femur were removed. A single starting pin was then placed 1cm anterior to the PCL insertion and the notch in the direction of the femoral head. The OrthoAlign device was applied over the pin. It was oriented to be in line with the epicondylar axis and the trochlear groove. It was then pinned into place. The navigation computer was then turned on and calibrated. The distal femur cut was set at 0 degrees varus and 3.5 degrees flexion. The distal femur cutting guide then was positioned for a 9mm cut. The distal femur was cut with an oscillating saw while protecting the soft tissues. The tibia was then addressed. The OrthoAlign device was placed over the tibial tubercle and medial tibia and secured into position. Once again, OrthoAlign was calibrated and then set for a 1 degree varus cut and 5 degrees of posterior slope. With this locked into position, the cut thickness stylus was used to assess cut thickness. The lateral side, most involved side, was set for a 5mm cut. This was then held in position and pinned into place with 2 additional pins and a cross pin for stability. The medial and lateral collateral ligaments were protected and the cut was performed. With this completed, it was assessed and noted to be of appropriate dimensions. The guide and OrthoAlign was removed. A spacer block was inserted and the knee was brought into extension to ensure enough space was present. . The Orthoalign gap balancing device was then placed in extension. This was used to ensure that the ligaments were properly balanced with up to 2 to 3 mm laxity laterally compared medially. The extension gap was measured as 22mm. The knee was then brought into 90 degrees of flexion and the ligament hospitality intern was once again placed. Under the same amount of force the flexion gap was measured. The Attune specific jig was placed and the flexion gap was made to match the extension gap. The femur was then sized as a size 7. The 4-in-1 cutting guide was the placed. An jayla wing was used to confirm appropriate position of the anterior cut to avoid notching. This cutting guide was ensured to be flush on the cut surface and then pinned into place with headed pins. While protecting the soft tissues, quad tendon, and collateral ligaments, the anterior and posterior cuts were performed with a saw. The central two pins were removed and the posterior and anterior chamfers were cut next. The notch-cutting guide was placed. This was pinned to lateralize the femoral component as much as possible while keeping it flush on the cut surface. This was then pinned into position. A saw was used to make the notch cut. A rasp smoothed the cut surfaces. The medial and lateral menisci were removed. A trial femoral component was then inserted, impacted down to the cut surfaces, and the lug holes were drilled. A provisional trial tibial component was placed and the knee was brought through range of motion. There was noted to be excellent extension and flexion. There was no significant instability. The patella was tracking without thumbs. A size 8mm polyethylene component provided the best range of motion and stability with less than 2mm gapping with medial and lateral stress and full extension without significant hyperextension. The tibial cut surface was fully exposed. The tibia was then sized as a 6. The tibia had been previously marked during trialing to correspond to the center of the tibial component to help with rotation. The trial was aligned to this alycia, approximately rotated to the medial 1/3rd of the tibial tubercle. The trial was pinned into place. The tibia was prepared with a reamer and a keel punch and lug holes. The final components were opened on the back table. The periosteal and capsular tissues, especially posteriorly, around the knee were then systematically injected with a periarticular cocktail consisting of 246mg of Ropivacaine, 0.5mg of Epinephrine, 0.08mg of Clonidine, and 30mg of Ketorolac, diluted to 100cc and split to 50 cc per side. Then, the knee components were placed. Starting with the tibial component, the tibia was subluxed anteriorly and the lug holes of the component were lined up. The tibia was then impacted with an impactor and mallet until the tibial component was in contact with the tibia. Then, the femoral component was inserted. The lug holes were aligned and the component was impacted into position. The final polyethylene component was inserted. The knee was irrigated with Surgiphor Betadine solution. This was allowed to sit in the knee for 3 minutes and then it was thoroughly irrigated out with saline. The knee was then taken through range of motion. The patella was tracking with a no-thumbs technique. A complete synovectomy of the patella was performed. Any prominence to the lateral facet was resected with a rongeur. The capsule was then reapproximated with a No. 1 Vicryl at multiple locations. The capsule was finally closed with a No. 2 Stratafix, barbed suture. Deep tissues were then reapproximated with 0 Vicryl and 2-0 Vicryl. The skin was closed with a running 3-0 Monocryl in a subcuticular fashion. The second dosing of 1g TXA was started. LEFT KNEE: The right knee was covered and attention was turned to the left knee. A second prep with Chloraprep was performed prior to application of Iodine impregnated skin protection. A timeout to confirm correct identity, side and site, procedure, allergies, anesthesia, and medical concerns was performed. With the knee in some flexion, a midline incision was made overlying the knee. Full thickness skin flaps were raised once the extensor mechanism was encountered. These were raised medially and laterally. Any bleeding was controlled with electrocautery. Once the extensor mechanism was fully exposed, a medial parapatellar arthrotomy was performed in a flexed position. All bleeding from the arthrotomy and the geniculate arteries was coagulated. A medial subperiosteal peel was performed with electrocautery to the midcoronal plane. The fat pad was removed while keeping the patellar tendon protected. The anterior distal femur synovium was removed for later visualization. The ACL and PCL were resected and the anterior horn of the lateral meniscus was transected. The knee was then flexed with the patella everted. Large osteophytes from the tibia were removed. Large osteophytes from the femur were removed. A single starting pin was then placed 1cm anterior to the PCL insertion and the notch in the direction of the femoral head. The OrthoAlign device was applied over the pin. It was oriented to be in line with the epicondylar axis and the trochlear groove. It was then pinned into place. The navigation computer was then turned on and calibrated. The distal femur cut was set at 0 degrees varus and 3.5 degrees flexion. The distal femur cutting guide then was positioned for a 9mm cut. The distal femur was cut with an oscillating saw while protecting the soft tissues. The tibia was then addressed. The OrthoAlign device was placed over the tibial tubercle and medial tibia and secured into position. Once again, OrthoAlign was calibrated and then set for a 1 degree varus cut and 5 degrees of posterior slope. With this locked into position, the cut thickness stylus was used to assess cut thickness. The lateral side, most involved side, was set for a 4mm cut. This was then held in position and pinned into place with 2 additional pins and a cross pin for stability. The medial and lateral collateral ligaments were protected and the cut was performed. With this completed, it was assessed and noted to be of appropriate dimensions. The guide and OrthoAlign was removed. A spacer block was inserted and the knee was brought into extension to ensure enough space was present. . The Orthoalign gap balancing device was then placed in extension. This was used to ensure that the ligaments were properly balanced with up to 2 to 3 mm laxity laterally compared medially. The extension gap was measured as 22mm. The knee was then brought into 90 degrees of flexion and the ligament hospitality intern was once again placed. Under the same amount of force the flexion gap was measured. The Attune specific jig was placed and the flexion gap was made to match the extension gap. The femur was then sized as a size 6. The 4-in-1 cutting guide was the placed. An jayla wing was used to confirm appropriate position of the anterior cut to avoid notching. This cutting guide was ensured to be flush on the cut surface and then pinned into place with headed pins. While protecting the soft tissues, quad tendon, and collateral ligaments, the anterior and posterior cuts were performed with a saw. The central two pins were removed and the posterior and anterior chamfers were cut next. The notch-cutting guide was placed. This was pinned to lateralize the femoral component as much as possible while keeping it flush on the cut surface. This was then pinned into position. A saw was used to make the notch cut. A rasp smoothed the cut surfaces. The medial and lateral menisci were removed. A trial femoral component was then inserted, impacted down to the cut surfaces, and the lug holes were drilled. A provisional trial tibial component was placed and the knee was brought through range of motion. The polyethylene was trialed until there was good flexion and extension with excellent stability to the medial and lateral collaterals. The patella was tracking without thumbs. A size 10mm polyethylene component provided the best range of motion and stability with less than 2mm gapping with medial and lateral stress and full extension without significant hyperextension. The tibial cut surface was fully exposed. The tibia was then sized as a 6. The tibia had been previously marked during trialing to correspond to the center of the tibial component to help with rotation. The trial was aligned to this alycia, approximately rotated to the medial 1/3rd of the tibial tubercle. The trial was pinned into place. The tibia was prepared with a reamer and a keel punch and lug holes. The final components were opened on the back table. The periosteal and capsular tissues, especially posteriorly, around the knee were then systematically injected with a periarticular cocktail.. Then, the knee components were placed. Starting with the tibial component, the tibia was subluxed anteriorly and the lug holes of the component were lined up. The tibia was then impacted with an impactor and mallet until the tibial component was in contact with the tibia. Then, the femoral component was inserted. The lug holes were aligned and the component was impacted into position. The final polyethylene component was inserted. The knee was irrigated with Surgiphor Betadine solution. This was allowed to sit in the knee for 3 minutes and then it was thoroughly irrigated out with saline. The knee was then taken through range of motion. The patella was tracking with a no-thumbs technique. A complete synovectomy of the patella was performed. Any prominence to the lateral facet was resected with a rongeur. The capsule was then reapproximated with a No. 1 Vicryl at multiple locations. The capsule was finally closed with a No. 2 Stratafix, barbed suture. Deep tissues were then reapproximated with 0 Vicryl and 2-0 Vicryl. The skin was closed with a running 3-0 Monocryl in a subcuticular fashion. Both wounds were now finally closed with a skin glue and mesh product. A Mepilex silver dressing was applied to each along with a [id number] BROOKE wrap. A CryoCuff was applied. Stanley was transferred to the hospital bed without difficulty an suffering no apparent complication. Stanley has a good prognosis. Physical therapy will start today and without restrictions, weight-bearing as tolerated. Aspirin 81mg BID will be used for DVT prophylaxis. Date of Procedure: 12/30/24
[2024-12-30] MEDS: ceFAZolin 2 GM/50 ML BAG IVPB (07:47)
[2024-12-30] MEDS: TRANEXAMIC ACID/SOD. CHL. 1,000 MG/100 ML BAG 600 MG IVPB ×2 (07:55→09:20)
--- NOTE | 2024-12-30 08:46 | W.ANESNERVE ---
Nerve Block Single Injection Procedure Date and Time Date Performed: 12/30/24 Procedure Start: 07:30 Location Where Procedure Performed Procedure Location: Day Surgery Unit Reason Performed: Postoperative Analgesia Requesting Provider: Asif Hackett Timeout Performed Timeout Performed: Yes Monitoring Used ECG, Blood Pressure, SpO2 and See EMR for corresponding vital signs Sterility Sterility: Hand Hygiene, Surgical Cap, Surgical Mask, Sterile Gloves and Chlorhexidine Sedation Given During Procedure Sedation Given (Indicate Dose Given): Versed IV Dose:: 2mg Patient Mental Status Patient Mental Status: Awake Nerve Block 1st Nerve Block: Laterality: Bilateral Block Type: Adductor Canal Ultrasound Image Saved?: Yes Needle / Catheter Used: 100mm SonoPlex II Local Anesthetic Bolus (Indicate Dose Given): Lidocaine used for local infiltration of skin, Injected in 3-5ml increments after negative blood aspiration, Half of Total block solution given into each side, Bupivacaine 0.25% Dose:: 20ml and Exparel Dose:: 20ml Additives (Indicate Dose Given): None Ultrasound: Sterile probe cover and gel used Nerve Stimulator: Supplement to Ultrasound use and No twitch or parasthesia noted < 0.5 mA Paresthesia: None Procedure Tolerated: No Complications and Patient tolerated well Procedure Outcome: Successful Performed By: Bo Aranda
--- NOTE | 2024-12-30 13:46 | PT.INIE ---
PT Notes Visit Reasons: B/L TKR Physical Therapy Day Surgery Initial Evaluation Date: 12/30/2024 Referring Doctor: Calvin CARMONA, Dr Hackett PT Orders: PT CONSULT: s/p Ortho surgery Precautions: WBAT BLE Patient Profile/Admitting Diagnosis: Pt is 44 yo male presenting s/p elective B TKA under spinal anesthisia with Nerve block performed by Dr Hackett on 12/30/24. Post op uncomplicated. PMHX: Arthritis of left knee (Acute) Crushing injury of finger of left hand (Acute) Degenerative joint disease of right knee (Chronic) Peripheral neuropathy (Acute) Shoulder pain, bilateral (Acute) Bursitis of elbow (Acute) Knee effusion, right (Acute) Hand pain, right (Acute) Sebaceous cyst (Acute) History of paresthesia (Acute) Bilateral knee pain (Acute) Chest pain (Acute) Acute dehydration (Acute) Cancer of kidney (Acute 03/01/14) 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 Medical History Headache Smoker Knee effusion, right Alcohol dependence Subareolar lump of breast Alcohol abuse Chronic kidney disease, stage 2 (mild) Chronic neck pain GERD (gastroesophageal reflux disease) Depression with anxiety COPD (chronic obstructive pulmonary disease) Renal cell carcinoma Nocturia Anemia Erectile dysfunction Gout Hypertension (03/01/14) 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 Depression (03/01/14) Surgical History H/O partial nephrectomy History of fusion of cervical spine knee surgery Left ACL 1996 Right knee surgery described as involving meniscus, ACL and MCL ~2010 Social History/Home Situation: Pt resides with in 2 story home with 4 RADHA with B rails. 13 steps with left rail to bedroom. Pt drives. Independent ADL, ambulation, meal prep. Pt has 3 large dogs. Pt enjoys basketball, golf. Equipment Owned/DME: crutches, issued and fitted for FWW provided by [facility] Subjective: Pt reports he is feeling pretty good. He notes some localized pain across thigh proximal to patella after ambulation Objective: General Observation:male semireclined on stretcher with cryocuff to B knees. present. Mental Status: alert and Ox 4, flat affect, cooperative, able to follow all instructions Pain: right knee 3/10 left 2/10 . ROM: Right Upper Extremity: WNL Left Upper Extremity: WNL Right Lower Extremity: WNL knee 0-105 Left Lower Extremity: WNL knee 0-108 Strength: BUE: 5/5 Right Lower Extremity: Hip flexion: 3-/5; hip abduction: 3-/5; hip extension:3- /5; knee extension: 3 /5; knee flexion: 2+ /5 ankle DF: 3+ /5 ; ankle PF: 3+ /5. Pt demonstrates strong quad set without tactile cue and SLR without lag Left Lower Extremity: Hip flexion: 3-/5; hip abduction: 3-/5; hip extension: 3- /5; knee extension: 3 /5; knee flexion:2+ /5 ankle DF: 3+/5 ; ankle PF:3+ /5 Pt demonstrates strong quad set without tactile cue and SLR without lag Sensation: intact to touch and pain Bed Mobility/Transfers: Supine to sit independent roll CGA with pillow between legs Sit to stand CGA with cues to push up through BUE and BLE Stand to sit SBA with cue to reach back Bed to chair SBA with FWW Gait: amb with FWW SBA 100 feet step to pattern initially with reduced knee flexion and circumduction to advance BLE.. pt able to progress to slight reciprocal pattern with increased knee flexion during swing phase BLE. Stairs : 3 4 steps? and 2 6 steps with B rails CGA with continuous cues for sequencing step to pattern 3 4 steps? and 2 6 steps with crutch and L rail CGA with continuous cues for sequencing step to pattern Balance: Static Sitting: Normal Dynamic Sitting: good Static Standing: good Dynamic Standing:fair Special Tests: [] Mobility Limitations Standardized Measure [] [facility] [employer] AM-PAC 6 clicks Basic Mobility Inpatient Short Form: [] Raw Score: 21 CMS Score: 28.97% Informed Consent/Education: Patient instructed in purpose of PT consult. Treatment :26671 Packet containing TKA exercise protocol has been given to patient. Education and training on initial set of exercises that can be done at home have been completed with patient. Pt performed 5 reps x BLE. Pt instructed in vehicle transfer technique to lower the back rest to allow for adequate foot clearance. Assessment: Patient is a 44 yo male who presents with clinical signs and symptoms consistent with current/admitting diagnoses that have resulted to mobility limitations, gait instability, generalized weakness, and impairment of motor control as demonstrated by the following impairment level findings: 1. Decreased strength to B knee major muscle groups 2. Impaired standing balance 3. Limitation of joint range of motion in B knee 4. Pain B knee 5. Impaired functional activity tolerance Impairments are contributing to the following functional limitations: 1. Inability to safely ambulate without assistive device 2. Increase completion time for mobility ADL performance 3. Increased fall risk 4. Difficulty performing stairs without assistance safely Patient is assessed as a low complexity based on the following: History: 44-year-old male with impairment level findings, functional limitations, and past medical history as indicated above Examination: Demonstrable impairment in strength, balance, and mobility level with underlying impairments and functional limitations as documented above Presentation: stable Decision Making: low Goals: N/A. Plan of Care/Treatment Plan: N/A. PT evaluation and 1-2 treatment session only for functional mobility training using recommended AD and for HEP instruction. DISCHARGE RECOMMENDATIONS: Home with HEP and outpatient PT as scheduled TREATMENT CODE/TIME:21371, [id number]/ [id number] Thank you for the opportunity to participate in the care of this patient. Mercedes Vines PT [facility]
--- NOTE | 2024-12-30 14:50 | W.ANESPOSTOP ---
Postoperative Evaluation Date, Time and Location Date Performed: 12/30/24 Time Performed: 12:50 Patient Location: Day Surgery Unit Vital Signs Most Recent Imported Vital Signs: Most Recent Vital Signs Temp Pulse Resp BP Pulse Ox 36.3 C L 74 16 152/94 H 96 12/30/24 12:50 12/30/24 12:50 12/30/24 12:50 12/30/24 12:50 12/30/24 12:50 Pain Score Most Recent Pain Score: Most Recent Pain Score Pain Level 0 12/30/24 12:50 Assessment Mental Status: Awake (Alert & Oriented to Patient Baseline) Airway and Respiratory Function: Patent airway with normal (patient baseline) respiratory exam Cardiovascular Function: Hemodynamically Stable Hydration Status: Adequately Hydrated Nausea & Vomiting: No Nausea or Vomiting Pain: Pain is tolerable per patient Peripheral Nerve Block: Regional nerve block not resolved at time of post operative discharge
== END 2024-12-30 14:20 | disposition home or self-care (01) ==
PROVIDERS: PCP Family Medicine; Visit Provider Student in an Organized Health Care Education/Training Program
PROC: 0SRC0JZ Replacement of Right Knee Joint with Synthetic Substitute, Open Approach (ICD-10-PCS; CPT 27447; principal; 2024-12-30 07:30)
DX: M17.0 Bilateral primary osteoarthritis of knee (principal); G89.18 Other acute postprocedural pain
CPT/HCPCS: 27447; 20985; 64447; 97110; 97161; C1776; J0665; J0666; J0690; J1100; J2250; J2405; J2704

== ENCOUNTER 2025-01-14 11:25 | Outpatient (CLI) | payer BC, SELFPAY ==
--- NOTE | 2025-01-14 10:45 | DI.RAD_ITS ---
Exam(s) XR KNEE LT 1V XR KNEE RT 1V XR STANDING ALIGNMENT EXAM: XR STANDING ALIGNMENT CLINICAL HISTORY: 1st post op S/P BILAT TKAS. TECHNIQUE: 2D digital imaging was performed. Standing AP views were performed from the pelvis throu gh the ankles. Lateral views both knees. COMPARISON: CR XR STANDING ALIGNMENT from 12/16/2024 CR XR KNEE LT 1V from 01/14/2025 CR XR KNEE RT 1V from 01/14/2025 FINDINGS: BONES: No acute fracture is present. No bony destructive lesion is seen. Leg length discrepancy: No significant overall leg length discrepancy. JOINTS: Knees: Status post placement bilateral knee prostheses. The alignment appears satisfactory. No surrounding lucencies. The ankle joints are unremarkable. The hip joints are unremarkable. SOFT TISSUE: Normal. IMPRESSION: Satisfactory appearance of bilateral knee prostheses. No significant leg length discrepancy. DATA REPOSITORY: RADIATION DOSE DELIVERED:
== END 2025-01-14 11:26 | disposition home or self-care (01) ==
LOC: DIORS 11:25
PROVIDERS: PCP Family Medicine; Visit Provider Student in an Organized Health Care Education/Training Program
DX: Z96.653 Presence of artificial knee joint, bilateral (principal); Z47.1 Aftercare following joint replacement surgery
CPT/HCPCS: 73560; 77073

== ENCOUNTER 2025-03-08 15:25 | Outpatient (CLI) | payer BC, SELFPAY ==
--- NOTE | 2025-03-08 15:00 | DI.RAD_ITS ---
Exam(s) XR KNEE LT 2V AP,LAT EXAM: XR KNEE LT 2V AP,LAT CLINICAL HISTORY: bilateral knee pain. TECHNIQUE: 2D digital imaging was performed. COMPARISON: CR XR KNEE RT 1V from 01/14/2025 FINDINGS: Two views Stable position alignment of the components of the prosthesis. No fracture or loosening evident. There is evidence of prior ipsilateral ACL surgery. A triangular densities noted posterior to the distal femur. Suspect that this may be on the clothing. IMPRESSION: As above. DATA REPOSITORY: RADIATION DOSE DELIVERED:
--- NOTE | 2025-03-08 15:00 | DI.RAD_ITS ---
Exam(s) XR KNEE RT 2V AP,LAT EXAM: XR KNEE RT 2V AP,LAT CLINICAL HISTORY: bilateral knee pain. TECHNIQUE: 2D digital imaging was performed. COMPARISON: CR XR KNEE LT 1V from 01/14/2025 CR XR KNEE RT 1V from 01/14/2025 CR XR KNEE LT 2V AP,LAT from 03/08/2025 FINDINGS: Two views Stable position alignment of bones of the prosthesis. No fracture or loosening evident. Evidence of prior ACL surgery noted. IMPRESSION: Stable satisfactory appearance DATA REPOSITORY: RADIATION DOSE DELIVERED:
== END 2025-03-08 15:26 | disposition home or self-care (01) ==
LOC: DIORS 15:26
PROVIDERS: PCP Family Medicine; Visit Provider Student in an Organized Health Care Education/Training Program
DX: Z96.653 Presence of artificial knee joint, bilateral (principal)
CPT/HCPCS: 73560

== ENCOUNTER 2025-05-14 12:26 | Outpatient (REF) | payer BC, SELFPAY ==
[2025-05-14 16:38] LABS: HCT 43.5 % (40.0-50.0); HGB 14.2 g/dL (13.5-17.5); MCH 33.6 pg (27.0-33.0); MCHC 32.6 % (32.0-36.0); MCV 103 fL (80-95); MPV 10.4 fL (8.0-11.0); Platelet Count 162 10^3/uL (130-400); RBC 4.22 10^6/uL (4.36-5.78); RDW 12.9 % (11.8-14.1); RDW-SD 49.0 fL; WBC 10.14 10^3/uL (4.4-10.8)
[2025-05-14 16:44] LABS: ESR 11 mm/hr (0-15)
[2025-05-14 17:03] LABS: ALT 30 U/L (16-63); AST 55 U/L (15-37); Albumin 3.5 g/dL (3.4-5.0); Alkaline Phosphatase 160 U/L (46-116); Anion Gap 9.0 mmol/L (3-11); BUN 15 mg/dL (7-18); Bilirubin, Total 0.9 mg/dL (0.2-1.0); CO2 29.0 mmol/L (21.0-32.0); Calcium 9.5 mg/dL (8.5-10.1); Chloride 101 mmol/L (98-107); Estimated GFR 40.92 (mL/min/1.73m2); Glucose 87 mg/dL (74-106); Potassium 4.7 mmol/L (3.5-5.1); Sodium 139 mmol/L (136-145); Total Protein 7.7 g/dL (6.4-8.2)
== END 2025-05-14 12:27 | disposition home or self-care (01) ==
LOC: NCHCN 12:26
PROVIDERS: PCP Family Medicine; Visit Provider Family Medicine
DX: I10 Essential (primary) hypertension (principal); M25.561 Pain in right knee; K70.30 Alcoholic cirrhosis of liver without ascites
CPT/HCPCS: 80053; 85027; 85652; 82105

== ENCOUNTER 2025-05-18 04:51 | Outpatient (CLI) | payer BC, SELFPAY ==
[2025-05-18 15:55] LABS: ESR 10 mm/hr (0-15)
[2025-05-18 17:22] LABS: C-Reactive Protein < 0.50 mg/dL (<or=0.5)
== END 2025-05-18 04:52 ==
LOC: LBO 05-19 04:51
PROVIDERS: PCP Family Medicine; Visit Provider Student in an Organized Health Care Education/Training Program
DX: Z96.653 Presence of artificial knee joint, bilateral (principal)
CPT/HCPCS: 36415; 85652; 86140

== ENCOUNTER 2025-05-20 14:55 | Outpatient (CLI) | payer BC, SELFPAY ==
--- NOTE | 2025-05-20 14:15 | DI.RAD_ITS ---
Exam(s) XR KNEE LT 3V AP,LAT,THIEN EXAM: XR KNEE LT 3V AP,LAT,THIEN CLINICAL HISTORY: eval painful L knee. TECHNIQUE: 2D digital imaging was performed. Three views. COMPARISON: CR XR KNEE LT 4V AP,LAT,THIEN,PAT from 08/13/2024 CR XR KNEE LT 1V from 01/14/2025 CR XR KNEE RT 1V from 01/14/2025 CR XR KNEE RT 2V AP,LAT from 03/08/2025 CR XR KNEE LT 2V AP,LAT from 03/08/2025 FINDINGS: BONES: No acute fracture is present. No bony destructive lesion is seen. JOINTS: There are femoral and tibial components of a knee prosthesis which show no change in alignment. No abnormal surrounding bony lucencies. There is no patellar prosthesis. There is abnormal widening of the medial patellofemoral joint space, lateral patellar tilt and mild lateral patellar subluxation. The findings appear new since July of 2024. Findings suspicious for medial retinacular tear. No joint effusion is seen. SOFT TISSUE: Anterior soft tissue swelling IMPRESSION: Abnormal widening of the medial patellofemoral joint and adjacent soft tissue swelling which may indicate disruption of the medial patellar retinaculum. DATA REPOSITORY: RADIATION DOSE DELIVERED:
== END 2025-05-20 14:56 | disposition home or self-care (01) ==
LOC: DIORS 14:55
PROVIDERS: PCP Family Medicine; Visit Provider Student in an Organized Health Care Education/Training Program
DX: T84.84XA Pain due to internal orthopedic prosthetic devices, implants and grafts, initial encounter (principal); Z96.652 Presence of left artificial knee joint
CPT/HCPCS: 73562

== ENCOUNTER 2025-05-26 08:45 | Day surgery (SDC) | payer BC, SELFPAY ==
[2025-05-26] VITALS (22 sets, daily range): BP systolic 127–186; BP diastolic 83–112; PULSE 67–87; RESP 14–22; TEMP 36.2–36.6; O2SAT 88–98; BMI 35.4
--- NOTE | 2025-05-26 07:22 | PDOC.DSDIS_ITS ---
Date of service: 05/26/25 Discharge Plan Disposition Patient Disposition: Home Condition: Good Discharge Details Reason For Visit: L Knee Arthroscopy Attending Provider: Asif Hackett Primary Care Provider: Emilee Lux V Home Meds and New Rx's Prescriptions: New acetaminophen 500 mg tablet 500 mg PO TID Qty: 90 0RF hydrocodone-acetaminophen 5-325 mg tablet 1 tab PO Q6H PRN (Reason: pain) Qty: 6 0RF ibuprofen 600 mg tablet 600 mg PO TID PRN (Reason: pain) Qty: 90 0RF Continued allopurinol 100 mg tablet 200 mg PO DAILY losartan 25 mg tablet 25 mg PO DAILY bupropion HCl 150 mg tablet extended release 24 hr 150 mg PO QAM spironolactone 100 mg tablet 100 mg PO DAILY buspirone 10 mg tablet 15 mg PO BID pregabalin 150 mg capsule 150 mg PO TID lorazepam 1 mg tablet 0.5 mg PO QHS PRN methylphenidate HCl [Ritalin LA] 10 mg capsule,ER biphasic 50-50 20 mg PO DAILY albuterol sulfate [ProAir HFA] 90 mcg/actuation HFA aerosol inhaler 2 puff inhalation Q6H PRN atenolol 100 mg tablet 100 mg PO DAILY sildenafil [Viagra] 50 mg tablet 50 mg PO DAILY PRN Rx Instructions: administer 30 minutes to 4 hours before activity pantoprazole 40 mg tablet,delayed release (DR/EC) 40 mg PO DAILY hydroxyzine HCl 50 mg tablet 50 mg PO HS Patient Comments: TAKE 1 TABLET BY MOUTH TWICE DAILY NEEDED acamprosate 333 mg tablet,delayed release (DR/EC) 333 mg PO TID Patient Comments: TAKE 2 TABLETS BY MOUTH THREE TIMES DAILY Discontinued acetaminophen 500 mg tablet 1,000 mg PO TID Qty: 90 3RF Discharge Instructions Additional Instructions: Knee Manipulation Discharge Instructions Activity: You should begin moving as soon as possible. You may work on flexion but also equally maintain extension. You may bear weight as tolerated, using crutches only for support/comfort. You should apply ice to help with swelling and elevate when possible (especially in the first few days). Dressings: The knee dressing may come down after 48 hours. You may shower and get the wound wet at that time. You should keep the wounds covered with a bandaid until follow-up. Medications: - Rarely does this require any stronger pain medications. You have been prescribed hydocodone for breakthrough pain. - Recommend to take up to 1000mg of Acetaminophen (Tylenol) and 600mg of Ibuprofen (Advil) every 8 hours as needed. These larger strength tablets were called in but you also may use [id number]. Follow-up: 7-10 days Referrals: Asif Hackett MD [ [facility] STAFF PHYSICIAN, Orthopaedic Surgical] Equipment/Supplies: Partial Weight Bearing Crutches Activity:: Activity as Tolerated Remove Dressings/Wound Care:: 48 hours Shower/Bathe:: 48 hours Diet:: As Tolerated Discharge Orders Discharge Orders: Discharge Order (Routine); Ordered 05/26/25 Ordered By: Calvin Gama DS: Diagnosis Discharge Diagnosis (1) Crepitus of joint of left knee: Status: Acute (2) Painful total knee replacement, left: Status: Acute
--- NOTE | 2025-05-26 09:24 | W.ANESPRE ---
General Info Date of Service Date Performed: 05/26/25 Height: 6 ft Weight: 118.3 kg Body Mass Index (BMI): 35.4 Surgical Procedure: Operation Date: 05/26/25 11:10 Proposed Procedure Side Surgeon p Knee Arthroscopy, Synovectomy Left Asif Hackett MD Meds Allergies and Home Medications Allergies Allergy/AdvReac Type Severity Reaction Status Date / Time morphine Allergy Unknown Unknown Verified 05/26/25 09:17 bacitracin (From Neosporin Allergy Unknown Verified 05/26/25 09:17 ([id number])) neomycin (From Neosporin Allergy Unknown Verified 05/24/25 15:31 ([id number])) polymyxin B (From Neosporin Allergy Unknown Verified 05/26/25 09:17 ([id number])) hydromorphone HCl (From AdvReac Severe Visual Verified 05/26/25 09:17 Dilaudid) Disturbances aspirin AdvReac HEARTBURN Verified 05/26/25 09:17 sertraline AdvReac NAUSEA Verified 05/26/25 09:17 Home Medication ?Medication ?Instructions ?Recorded albuterol sulfate 90 mcg/actuation 2 puff inhalation Q6H PRN 09/04/21 aerosol inhaler (ProAir HFA) atenolol 100 mg tablet 100 mg PO DAILY 09/04/21 sildenafil 50 mg tablet (Viagra) 50 mg PO DAILY PRN 09/04/21 pantoprazole 40 mg tablet,delayed 40 mg PO DAILY 09/27/22 release allopurinol 100 mg tablet 200 mg PO DAILY 10/29/22 bupropion HCl 150 mg 24 hr tablet, 150 mg PO QAM 08/05/23 extended release losartan 25 mg tablet 25 mg PO DAILY 08/05/23 buspirone 10 mg tablet 15 mg PO BID 12/16/24 pregabalin 150 mg capsule 150 mg PO TID 12/16/24 spironolactone 100 mg tablet 100 mg PO DAILY 12/16/24 hydroxyzine HCl 50 mg tablet 50 mg PO HS 12/30/24 lorazepam 1 mg tablet 0.5 mg PO QHS PRN 05/20/25 methylphenidate HCl 10 mg biphasic 20 mg PO DAILY 05/20/25 50-50 capsule,extended release (Ritalin LA) acamprosate 333 mg tablet,delayed 333 mg PO TID 05/24/25 release acetaminophen 500 mg tablet 500 mg PO TID #90 tabs 05/26/25 hydrocodone 5 mg-acetaminophen 325 1 tab PO Q6H PRN pain #6 tabs 05/26/25 mg tablet ibuprofen 600 mg tablet 600 mg PO TID PRN pain #90 tabs 05/26/25 Current Visit Medications: Current Medications Generic Name Dose Route Start Last Admin Trade Name Freq PRN Reason Stop Dose Admin Acetaminophen 1,000 mg 05/26/25 06:00 Acetaminophen 500 Mg Tab PO 05/26/25 23:59 PREOP JENY Acetaminophen 650 mg 05/26/25 07:21 Acetaminophen 325 Mg Tab PO 06/25/25 07:20 Q4H PRN PRN Hydrocodone Bitart/Acetaminophen 0 tab 05/26/25 07:21 Hydrocodone 5/Acetaminophen 325 Tab PO 06/25/25 07:20 Q3H PRN PRN Pain Celecoxib 400 mg 05/26/25 06:00 Celecoxib 200 Mg Cap PO 05/26/25 23:59 PREOP JENY Gabapentin 300 mg 05/26/25 06:00 Gabapentin 300 Mg Cap PO 05/26/25 23:59 PREOP JENY Ringer's Solution 1,000 mls @ 80 mls/hr 05/26/25 06:00 IV 05/26/25 23:59 INFUSION JENY Cefazolin Sodium/Dextrose 2 gm in 50 mls @ 100 mls/hr 05/26/25 06:00 Ancef Duplex IVPB 05/26/25 23:59 PREOP JENY Tranexamic Acid/Sodium Chloride 1,000 mg in 100 mls @ 600 mls/hr 05/26/25 06:00 IVPB 05/26/25 23:59 PREOP [facility] IV Miscellaneous Supplies 1 each 05/26/25 06:00 Iv Access IV 05/26/25 23:59 DIRECTED JENY Sodium Chloride 0 ml 05/26/25 06:00 Normal Saline Flush 10 Ml Syr IV 05/26/25 23:59 PRN PRN Sodium Chloride 0 ml 05/26/25 06:00 Normal Saline 10 Ml Vial IJ 05/26/25 23:59 DIRECTED PRN Sterile Water 0 ml 05/26/25 06:00 Water,Injection,Sterile 10 Ml Vial IJ 05/26/25 23:59 DIRECTED PRN PFSH Active Problems Active Problems: Problem Status Onset Code Crepitus of joint of left knee Acute M23.8X2 Painful total knee replacement, left Acute T84.84XA, Z96.652 History of total bilateral knee replacement (TKR) Acute 12/30/24 Z96.653 Arthritis of left knee Chronic M17.12 Crushing injury of finger of left hand Acute S67.10XA 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 M17.11 Peripheral neuropathy Acute G62.9 Shoulder pain, bilateral Acute M25.511, M25.512 Bursitis of elbow Acute M70.30 Knee effusion, right Acute M25.461 Hand pain, right Acute M79.641 Sebaceous cyst Acute L72.3 History of paresthesia Acute Z87.898 Bilateral knee pain Acute M25.561, M25.562 Acute dehydration Acute E86.0 Chest pain Acute R07.9 Cancer of kidney Acute 03/01/14 C64.9 Medical History Medical History Headache Smoker Knee effusion, right Alcohol dependence Subareolar lump of breast Alcohol abuse Chronic kidney disease, stage 2 (mild) Chronic neck pain GERD (gastroesophageal reflux disease) Depression with anxiety COPD (chronic obstructive pulmonary disease) Renal cell carcinoma Nocturia Anemia Erectile dysfunction Gout Hypertension (03/01/14) 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 Depression (03/01/14) Medical History Comments:: Smokes marijauna at night approx 1 bowl. Last night. Cigarette last night as well. Surgical History Surgical History H/O partial nephrectomy Pt. states he has both just a just a chunk was taken out 2012 or 2013 History of fusion of cervical spine knee surgery Left ACL 1996 Right knee surgery described as involving meniscus, ACL and MCL ~2010 Tobacco Smoking/Tobacco Use Status: Current every day Tobacco Type: cigarettes Passive smoking exposure: Yes Alcohol Alcohol Intake: former Substance Use Substance use: Daily Substance use type: marijuana Details: Last night 1999 Vital Signs and Lab Results Vital Signs Most Recent Vital Signs in EMR: Most Recent Vital Signs Temp Pulse Resp BP Pulse Ox 36.2 C L 87 19 156/112 H 98 05/26/25 08:58 05/26/25 08:58 05/26/25 08:58 05/26/25 08:58 05/26/25 08:58 Lab Results Complete Blood Count: WBC, (4.4-10.8) 10.14 10^3/uL 05/14/25, 12:08 RBC, (4.36-5.78) 4.22 10^6/uL L 05/14/25, 12:08 Hgb, (13.5-17.5) 14.2 g/dL 05/14/25, 12:08 Hct, (40.0-50.0) 43.5 % 05/14/25, 12:08 Plt Count, (130-400) 162 10^3/uL 05/14/25, 12:08 Complete Metabolic Panel: Sodium, (136-145) 139 mmol/L 05/14/25, 12:08 Potassium, (3.5-5.1) 4.7 mmol/L 05/14/25, 12:08 Chloride, (98-107) 101 mmol/L 05/14/25, 12:08 Carbon Dioxide, (21.0-32.0) 29.0 mmol/L 05/14/25, 12:08 BUN, (7-18) 15 mg/dL 05/14/25, 12:08 Creatinine, (0.70-1.30) 2.0 mg/dL H 05/14/25, 12:08 Est GFR (CKD-EPI 2020), (mL/min/1.73m2) 40.92 05/14/25, 12:08 Calcium, (8.5-10.1) 9.5 mg/dL 05/14/25, 12:08 Albumin, (3.4-5.0) 3.5 g/dL 05/14/25, 12:08 Glucose, (74-106) 87 mg/dL 05/14/25, 12:08 C-Reactive Protein, (<or=0.5) < 0.50 mg/dL 05/18/25, 15:38 Liver Function Panel: ALT, (16-63) 30 U/L 05/14/25, 12:08 AST, (15-37) 55 U/L H 05/14/25, 12:08 Imaging and Studies Imaging and Studies Study information below may be from another EMR and interpreted by another provider. Please see original notes in EMR for more complete details. EKG Summary: 09/17/23 HR:79 bpm ECG Measurements Heart Rate 79 AXIS [place] 149 P 27 QRSd 104 QRS 4 QT 442 T-7 QTc 507 Conclusion Sinus rhythm.., V-rate 60- 99 borderline prolonged QTc no ST segment or T wave abnormalities to suggest occlusive [place] Anesthesia Assessment and Plan Anesthesia History Personal History: No History of Anesthesia Complications Family History: No Family History of Anesthesia Complications Exercise Tolerance Exercise Tolerance: Metabolic Equivalents>4 Pertinent Negatives Pertinent Negatives: No Symptoms of GERD, No Major Cardiovascular Symptoms or Complaints, No Major Pulmonary Symptoms or Complaints and No History of CVA/TIA Cardiac & Pulmonary Exam Cardiac Exam: Normal S1/S2 Heart Sounds Pulmonary Exam: Clear Bilateral Breath Sounds Implantable Cardiac Device Does patient have a Pacemaker or an ICD?: No Airway Exam Known Difficult Airway: No Mallampati Class: 3 Mouth Opening: Normal (> 3cm) Thyromental Distance: Greater than 3 cm Neck Range of Motion: Full ROM and History of Cervical Fusion Neck Circumference: Normal Teeth Condition: Generalized Poor Dentition ASA Classification ASA Score: ASA 3 Emergency Case?: No NPO Status NPO Status: NPO Clears >2 hours, Solids >8 hours Anesthesia Plan Resuscitation Status: Full Code Anesthesia Technique: General Anesthesia Airway Planned: Endotracheal Tube Pain Management: Surgeon and patient request nerve block Monitors Used: Standard Monitors and SedLine
[2025-05-26] MEDS: Lactated Ringers 1,000 ML 80 ML IV (09:36)
[2025-05-26] MEDS: Celecoxib 200 MG CAP 400 MG PO (09:37)
[2025-05-26] MEDS: Acetaminophen 500 MG TAB 1000 MG PO (09:37)
[2025-05-26] MEDS: Gabapentin 300 MG CAP PO (09:37)
[2025-05-26] MEDS: ceFAZolin 2 GM/50 ML BAG IVPB (10:19)
[2025-05-26] MEDS: TRANEXAMIC ACID/SOD. CHL. 1,000 MG/100 ML BAG 600 MG IVPB (10:30)
[2025-05-26] MEDS: EPINEPHrine 10 MG/10 ML ML (11:00)
[2025-05-26] MEDS: Bupivacaine 0.25% Pres-Free 30 ML VIAL (11:13)
[2025-05-26] MEDS: fentaNYL 100 MCG/2 ML VIAL IVP (11:47)
[2025-05-26 12:06] LABS: Polynuclear Cells 27 %
--- NOTE | 2025-05-26 13:04 | W.ANESPOSTOP ---
Postoperative Evaluation Date, Time and Location Date Performed: 05/26/25 Time Performed: 13:04 Patient Location: Day Surgery Unit Vital Signs Most Recent Imported Vital Signs: Most Recent Vital Signs Temp Pulse Resp BP Pulse Ox 36.2 C L 70 16 146/95 H 95 05/26/25 12:03 05/26/25 12:03 05/26/25 12:03 05/26/25 12:03 05/26/25 12:03 Pain Score Most Recent Pain Score: Most Recent Pain Score Pain Level 4 05/26/25 12:03 Assessment Mental Status: Awake (Alert & Oriented to Patient Baseline) Airway and Respiratory Function: Patent airway with normal (patient baseline) respiratory exam Cardiovascular Function: Hemodynamically Stable Hydration Status: Adequately Hydrated Nausea & Vomiting: No Nausea or Vomiting Pain: Pain is Moderate or Severe Postoperative Pain Management: Patient having pain, declines treatment, wishes to be discharged Peripheral Nerve Block: Patient did not receive a nerve block
--- NOTE | 2025-05-26 16:08 | W.PM.OP ---
Operative Note Operative Note PRE-OP DIAGNOSIS: Crepitus and Pain of Knee Replacement - LEFT KNEE POST-OP DIAGNOSIS: same PROCEDURE: Arthroscopic Synovectomy of 3 Compartments with Manipulation - LEFT Knee SURGEON: Asif Hackett ANESTHESIA TYPE: General LMA/ETT Refer to Anesthesia Record ESTIMATED BLOOD LOSS: 0 PATHOLOGY: none sent COMPLICATIONS: None Patient was transported to: PACU Patient's condition: stable Indications: I have seen Yan in clinic for symptoms of crepitus and pain of the knee following knee replacement surgery. Nonoperative measures were exhausted but disability due to lack of motion persisted. I discussed knee arthroscopy with synovectomy with the patient. I reviewed the risks of the procedure to include, but not limited to, bleeding, infection, pain, continued stiffness, recurrence, blood clot. Despite these risks, the patient elected to proceed. Findings: There is blood-tinged fluid seen within the knee. This was sent to the lab for cell count and culture. The remainder of the knee showed signs of some frayed tissue in the gutters, much more lateral than medial as well as generalized inflammatory changes. No other signs of infection. No gross signs of loosening. Procedure Description: Yan was greeted in the preoperative holding area where the correct side was identified and marked. The consent was reviewed with the patient and signed. The history and physical was updated. All questions were answered. Yan was taken back to the operating room. The patient was placed into the supine position on the operating room table. All bony prominences were well padded. Prophylactic antibiotics in the form of Cefazolin were administered. The left leg was then prepped with Chloraprep and draped in a standard fashion with stockinette and extremity drape. A timeout to confirm correct identity, side and site, procedure, allergies, anesthesia, and medical concerns was performed. There was a joint effusion so the joint was aspirated. The synovial fluid was notably blood tinged. This fluid was sent to the lab for cell count and culture although initial screening labs were negative. Then, A standard lateral portal was made at the lateral border of the patella tendon in line with the inferior pole of the patella, soft spot. The skin and deep tissue was incised sharply and the blunt trochar was inserted atraumatically. At this point had visualization of the femoral component. A superolateral portal was then established with spinal needle localization just superior and lateral to the patella. A knife was taken down through the skin and soft tissue to enter the knee joint. There is notable inflammatory changes seen in evaluation of the superior compartment. Visualization of the medial lateral gutters also showed similar findings with a notable amount of frayed tissue seen adjacent to the patella and into the lateral gutter. Starting in the superior compartment above the femoral component and anterior to the femur I released all scarring between the anterior femoral synovium and the overlying extensor mechanism. This was taken through all of any noticeable scar tissue until the superior patellar pouch was fully released and mobile. This resection was carried out mostly with electrocautery as well as shaver. Once this was released fully from lateral to medial superiorly I then continue working down the lateral gutter. All scar tissue in the lateral gutter was released so there is normal space and movement between the capsular tissues and the edge of the femoral component and femur. Adhesions were released. Frayed tissue was debrided. Inflammatory tissue was also resected with electrocautery wand. Further dissection was taken down through the lateral gutter such that I was able to identify the polyethylene to its posterior corner. Once again, all scar tissue in this area was resected so the polyethylene was easily visible and there is no interposed tissue in the back or the polyethylene was identified. I then continued to work anteriorly. To continue the synovectomy from the lateral compartment to the anterior compartment into the medial compartment, I placed a medial portal under spinal needle localization. Once this was in place it became another working portal and I continued the synovectomy through the anterior compartment to the medial compartment. Once again, I freed up the medial gutter so I was able to visualize the polyethylene from the anterior posterior margins. There is no interposed tissue after full synovectomy was performed. Adhesions between the capsule and the femur were released. This was continued up the medial gutter until it met up with the releases performed previously in the superior compartment. Any remnant scar tissue from around the patella was then removed with a shaver and electrocautery. The arthroscope was brought back into the suprapatellar pouch and the leg was in full extension. The knee was thoroughly irrigated with the arthroscopic fluid on high flow and pressure. Inflow was stopped and excess fluid was removed. The wounds were closed with 4-0 Nylon. 0.25% bupivacaine was injected around the portal sites and into the knee. The wounds were dressed with Xeroform, 4x4 gauze, ABD pad, Kerlix and an BROOKE wrap. The patient tolerated the procedure well and was returned to the PACU in a stable condition suffering no known complication.. Date of Procedure: 05/26/25
== END 2025-05-26 13:10 | disposition home or self-care (01) ==
LOC: SUR 08:45
PROVIDERS: PCP Family Medicine; Visit Provider Student in an Organized Health Care Education/Training Program
PROC: (CPT 29870; principal; 2025-05-26 11:00)
DX: M23.8X2 Other internal derangements of left knee (principal); T84.84XA Pain due to internal orthopedic prosthetic devices, implants and grafts, initial encounter; Z96.652 Presence of left artificial knee joint
CPT/HCPCS: 29876; 87070; 87205; 89051; J0665; J0690; J1100; J2003; J2250; J2405; J2704; J3010

== ENCOUNTER 2025-08-24 13:27 | Emergency (ER) | payer BC, SELFPAY ==
[2025-08-24] VITALS (19 sets, daily range): BP systolic 157–177; BP diastolic 97–108; PULSE 53–107; RESP 15–23; TEMP 36.1–36.7; O2SAT 88–98
--- NOTE | 2025-08-24 14:03 | W.ED.GENAD ---
Discharge Plan Disposition Patient Disposition: Home Condition: Stable Discharge Details Clinical Impression: Cellulitis of great toe of left foot, Bilateral great toes ulcers Primary Care Provider: Emilee Lux V ED Provider: Judie Kaur Home Meds and New Rx's Prescriptions: New cephalexin 500 mg capsule 500 mg PO QID 9 Days Qty: 36 0RF sulfamethoxazole-trimethoprim [Bactrim DS] 800-160 mg tablet 1 tab PO Q12H 9 Days Qty: 18 0RF No Action allopurinol 100 mg tablet 200 mg PO DAILY losartan 25 mg tablet 25 mg PO DAILY bupropion HCl 150 mg tablet extended release 24 hr 150 mg PO QAM spironolactone 100 mg tablet 100 mg PO DAILY buspirone 10 mg tablet 15 mg PO BID pregabalin 150 mg capsule 150 mg PO TID lorazepam 1 mg tablet 0.5 mg PO QHS PRN methylphenidate HCl [Ritalin LA] 10 mg capsule,ER biphasic 50-50 20 mg PO DAILY celecoxib 200 mg capsule 200 mg PO BID ondansetron HCl 4 mg tablet 4 mg PO Q6H dextroamphetamine-amphetamine [Adderall] 20 mg tablet 20 mg PO DAILY albuterol sulfate [ProAir HFA] 90 mcg/actuation HFA aerosol inhaler 2 puff inhalation Q6H PRN atenolol 100 mg tablet 100 mg PO DAILY sildenafil [Viagra] 50 mg tablet 50 mg PO DAILY PRN Rx Instructions: administer 30 minutes to 4 hours before activity pantoprazole 40 mg tablet,delayed release (DR/EC) 40 mg PO DAILY hydroxyzine HCl 50 mg tablet 50 mg PO HS Patient Comments: TAKE 1 TABLET BY MOUTH TWICE DAILY NEEDED acamprosate 333 mg tablet,delayed release (DR/EC) 333 mg PO TID Patient Comments: TAKE 2 TABLETS BY MOUTH THREE TIMES DAILY acetaminophen 500 mg tablet 500 mg PO TID Qty: 90 0RF hydrocodone-acetaminophen 5-325 mg tablet 1 tab PO Q6H PRN (Reason: pain) Qty: 6 0RF ibuprofen 600 mg tablet 600 mg PO TID PRN (Reason: pain) Qty: 90 0RF Discharge Instructions Instructions: Cellulitis (Skin Infection), Adult ED Additional Instructions: You were seen in the emergency department today for evaluation of infection of your great toes on both feet. You have a skin and soft tissue infection known as cellulitis. In our department you do full physical examination performed and had x-rays that do not show that the infection has spread to your bones. I do note that you had some evidence of dehydration as well as a low magnesium level, you received IV fluids and magnesium to help fix those levels. You will follow-up with the podiatry department, and they will make further recommendations for managing the infection on your foot. You can wear the boot on your left foot to offload some of the pressure as this is the more infected foot. Please take all of the antibiotics until they are gone, even if you start to feel better. In total you should have 10 days of both of the antibiotics available to you. Please follow-up with your primary care provider in the next few days to discuss this visit and any symptoms that change, worsen, or persist. Thank you for allowing us to be part of your care. Return to the emergency department if you develop fever or chills, sudden or severe change or worsening of your wounds, or any other symptoms that cause you concern. Stand Alone Forms: Portal Information Referrals: Akilah Aragon DPM [[facility] STAFF PHYSICIAN, Podiatry] - 1 week Discharge Data Discharge Date/Time-TO BE ENTERED AT DEPARTURE: 08/24/25 17:14 HPI General Mode of arrival: ambulatory. Date/Time Provider Initiated Documentation: 08/24/25 13:53. Limitations to Documentation: no limitations. Information obtained by: patient and old records reviewed. HPI Narrative: This is a 44-year-old male patient with a past medical history significant for alcohol use disorder in remission, a history of peripheral neuropathy, hypertension, presenting for evaluation of toe infections. The patient was seen at the urgent care today, states that he has had 2 months of gradually worsening ulcerations of his bilateral great toes, and the left one started to turn red and puffy. He uses triple antibiotic ointment on his toes and keeps them wrapped at home. Has not taken any oral antibiotics. He cannot think of any specific injury, and has otherwise been in his normal state of health without recent fever, chills, nausea or vomiting or other systemic symptoms. The patient was sent here after being evaluated urgent care given the concern for needing labs and imaging. Related Data Home Medications ?Medication ?Instructions ?Recorded ?Confirmed albuterol sulfate 90 mcg/actuation 2 puff inhalation Q6H PRN 09/04/21 08/24/25 aerosol inhaler (ProAir HFA) atenolol 100 mg tablet 100 mg PO DAILY 09/04/21 08/24/25 sildenafil 50 mg tablet (Viagra) 50 mg PO DAILY PRN 09/04/21 08/24/25 pantoprazole 40 mg tablet,delayed 40 mg PO DAILY 09/27/22 08/24/25 release allopurinol 100 mg tablet 200 mg PO DAILY 10/29/22 08/24/25 bupropion HCl 150 mg 24 hr tablet, 150 mg PO QAM 08/05/23 08/24/25 extended release losartan 25 mg tablet 25 mg PO DAILY 08/05/23 08/24/25 buspirone 10 mg tablet 15 mg PO BID 12/16/24 08/24/25 pregabalin 150 mg capsule 150 mg PO TID 12/16/24 08/24/25 spironolactone 100 mg tablet 100 mg PO DAILY 12/16/24 08/24/25 hydroxyzine HCl 50 mg tablet 50 mg PO HS 12/30/24 08/24/25 lorazepam 1 mg tablet 0.5 mg PO QHS PRN 05/20/25 08/24/25 methylphenidate HCl 10 mg biphasic 20 mg PO DAILY 05/20/25 08/24/25 50-50 capsule,extended release (Ritalin LA) acamprosate 333 mg tablet,delayed 333 mg PO TID 05/24/25 08/24/25 release acetaminophen 500 mg tablet 500 mg PO TID #90 tabs 05/26/25 08/24/25 hydrocodone 5 mg-acetaminophen 325 1 tab PO Q6H PRN pain #6 tabs 05/26/25 08/24/25 mg tablet ibuprofen 600 mg tablet 600 mg PO TID PRN pain #90 tabs 05/26/25 08/24/25 celecoxib 200 mg capsule 200 mg PO BID 08/24/25 08/24/25 cephalexin 500 mg capsule 500 mg PO QID 9 days #36 caps 08/24/25 dextroamphetamine-amphetamine 20 20 mg PO DAILY 08/24/25 08/24/25 mg tablet (Adderall) ondansetron HCl 4 mg tablet 4 mg PO Q6H 08/24/25 08/24/25 sulfamethoxazole 800 1 tab PO Q12H 9 days #18 tabs 08/24/25 mg-trimethoprim 160 mg tablet (Bactrim DS) Previous Rx's ?Medication ?Instructions ?Recorded acetaminophen 500 mg tablet 500 mg PO TID #90 tabs 05/26/25 hydrocodone 5 mg-acetaminophen 325 1 tab PO Q6H PRN pain #6 tabs 05/26/25 mg tablet ibuprofen 600 mg tablet 600 mg PO TID PRN pain #90 tabs 05/26/25 cephalexin 500 mg capsule 500 mg PO QID 9 days #36 caps 08/24/25 sulfamethoxazole 800 1 tab PO Q12H 9 days #18 tabs 08/24/25 mg-trimethoprim 160 mg tablet (Bactrim DS) Allergies Allergy/AdvReac Type Severity Reaction Status Date / Time morphine Allergy Unknown Unknown Verified 08/24/25 13:48 bacitracin (From Neosporin Allergy Unknown Verified 08/24/25 13:48 ([id number])) neomycin (From Neosporin Allergy Unknown Verified 08/24/25 13:48 ([id number])) polymyxin B (From Neosporin Allergy Unknown Verified 08/24/25 13:48 ([id number])) hydromorphone HCl (From AdvReac Severe Visual Verified 08/24/25 13:48 Dilaudid) Disturbances aspirin AdvReac HEARTBURN Verified 08/24/25 13:48 sertraline AdvReac NAUSEA Verified 08/24/25 13:48 General Stated Complaint: RashLesion MILTON: 3 Exam Narrative Exam Narrative: Gen: Awake and alert, in no apparent distress HEENT: Non-icteric sclera Neck: Supple Lungs: No apparent respiratory distress, normal respiratory effort. Lung sounds clear and equal bilaterally without wheezes, rhonchi, rales CV: Appears well perfused, heart with regular rhythm but tachycardic rate, strong distal pulses symmetrical in all 4 extremities Abdomen: Non-distended, soft, nontender to palpation without rigidity, rebound, or guarding. MSK: Moves 4 extremities without apparent limitation in ROM. No peripheral edema Skin: Visualized skin without rashes, cyanosis. Bilateral great toe ulcerations with surrounding redness, induration, and swelling with warmth of the left great toe, see photos below. Neuro: Antalgic gait, no obvious focal motor deficits or facial asymmetry. Sensory deficits appreciated to the ankle bilaterally, stated baseline for patient. Speaks in full, clear sentences. Psych: Appropriate for situation. Course Vital Signs Vital signs: Vital Signs Temperature 36.7 C 08/24/25 13:44 Pulse 107 H 08/24/25 13:44 Respiratory Rate 20 08/24/25 13:44 Blood Pressure 165/107 H 08/24/25 13:44 Pulse Oximetry 95 08/24/25 13:44 Temperature 36.7 C 08/24/25 13:44 Pulse 107 H 08/24/25 13:44 Respiratory Rate 20 08/24/25 13:44 Blood Pressure 165/107 H 08/24/25 13:44 Blood Pressure Position Sitting 08/24/25 13:44 Pulse Oximetry 95 08/24/25 13:44 Oxygen Delivery Method Room Air 08/24/25 13:44 Oxygen Flow Rate 0 08/24/25 13:44 Medical Decision Making This is a 44-year-old male patient with a history of alcoholic neuropathy and hypertension presenting for evaluation of bilateral foot ulcers/concern for infection. Differential includes but is not limited to cellulitis, abscess, osteomyelitis, I certainly considered etiologies including ischemia and vascular abnormality so the patient reassuringly has well-perfused appearing toes and strong DP pulses bilaterally. Reassuringly, the patient is without systemic symptoms other than some mild tachycardia to suggest sepsis or bacteremia. No traumatic etiologies to suggest fracture or dislocation. I will obtain labs to include CBC, CMP, magnesium, ESR, CRP, lactate, and blood cultures. Will obtain x-rays of the bilateral great toes to evaluate for osteomyelitis. I will reach out to the podiatry provider to discuss disposition after initial workup has been completed. - I reviewed the patient's laboratory studies, which show a very mild leukocytosis to 10.8, no significant anemia or thrombocytopenia. Chemistry panel reveals no significant electrolyte derangements other than a low magnesium at 1.3 which will be repleted intravenously. Kidney function is at his baseline at 148, and he has a slight elevation in his AST to 43 which has also been demonstrated on prior labs. Lactate is slightly elevated to 2.8 and we will provide him with a liter of IV fluids for rehydration. ESR and CRP are not significantly elevated. The x-rays were reviewed and showed soft tissue swelling but no evidence of osteomyelitis. I discussed this case with Dr. Aragon with podiatry, and she will follow-up with this patient in the outpatient environment. I will start him on Keflex and Bactrim for broad-spectrum antibiosis for his cellulitis. At this time, the patient has had a full medical evaluation and is safe for discharge to home. They are hemodynamically stable, ambulatory, and tolerating PO. They are understanding of the follow-up plan and return precautions. They left our facility without incident. Judie Kaur MD [facility] [place] All Active Problems (Updated 08/24/25 @ 16:28 by Judie Kaur MD) Bilateral great toes ulcers (Acute) Cellulitis of great toe of left foot (Acute) Crushing injury of finger of left hand (Acute) Peripheral neuropathy (Acute) Shoulder pain, bilateral (Acute) Bursitis of elbow (Acute) Knee effusion, right (Acute) Hand pain, right (Acute) Sebaceous cyst (Acute) History of paresthesia (Acute) Bilateral knee pain (Acute) Acute dehydration (Acute) Chest pain (Acute) Cancer of kidney (Acute 03/01/14) 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 Medical History Headache Smoker Knee effusion, right Alcohol dependence Subareolar lump of breast Alcohol abuse Chronic kidney disease, stage 2 (mild) Chronic neck pain GERD (gastroesophageal reflux disease) Depression with anxiety COPD (chronic obstructive pulmonary disease) Renal cell carcinoma Nocturia Anemia Erectile dysfunction Gout Hypertension (03/01/14) 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 Depression (03/01/14) Surgical History Painful total knee replacement, left S/P arthroscopic synovectomy: 05/26/2025 History of total bilateral knee replacement (TKR) (12/30/24) H/O partial nephrectomy Pt. 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 Current gender identity: male What is your relationship status?: Panel score (0-1 are the most socially isolated patients): 1 Do you feel safe at home: Yes Do you feel safe in your relationship?: Yes Additional Social history: [employer] PAW[employer] Have you Been Recently Intoxicated or Drunk Within the Last 30 days?: No Have you Ever Experienced Previous Episodes of Alcohol Withdrawal?: No Have you ever Experienced Withdrawal Seizures?: No Have you ever Experienced Delirium Tremens(DT)s?: No Have you ever undergone Alcohol Rehabilitation Treatment (i.e, inpt ot outpatient treatment programs)?: No Have you ever Experienced Blackouts?: No Have you ever Combined Alcohol with other Downers within the last 90 days?: No Have you ever Combined Alcohol with any other Substance of Abuse during the last 90 days?: No Positive Blood Alcohol level on Presentation? [PCS.BAL]: No Evidence of Increased Autonomic Activity (i.e. HR>120, tremor, sweating, agitation, nausea)?: No Result: 0
[2025-08-24 14:32] LABS: Abs Immature Grans 0.07 10^3/uL (0.0-0.06); HCT 40.8 % (40.0-50.0); HGB 13.4 g/dL (13.5-17.5); Immature Grans % 0.6 %; MCH 31.8 pg (27.0-33.0); MCHC 32.8 % (32.0-36.0); MCV 97 fL (80-95); MPV 9.2 fL (8.0-11.0); Platelet Count 137 10^3/uL (130-400); RBC 4.21 10^6/uL (4.36-5.78); RDW 12.8 % (11.8-14.1); RDW-SD 45.7 fL; WBC 10.81 10^3/uL (4.4-10.8)
[2025-08-24 14:33] LABS: ESR 13 mm/hr (0-15)
[2025-08-24] MEDS: Ondansetron 4 MG/2 ML VIAL IVP (14:35)
[2025-08-24 14:45] LABS: ALT 23 U/L (10-49); AST 43 U/L (<34); Albumin 3.8 g/dL (3.2-5.0); Alkaline Phosphatase 159 U/L (46-116); Anion Gap 8.8 mmol/L (3-11); BUN 10 mg/dL (9-23); Bilirubin, Total 1.2 mg/dL (0.2-1.2); C-Reactive Protein 1.23 mg/dL (<=0.50); CO2 28.2 mmol/L (20.0-31.0); Calcium 9.0 mg/dL (8.3-10.6); Chloride 101 mmol/L (98-107); Glucose 76 mg/dL (74-106); Magnesium 1.3 mg/dL (1.6-2.6); Potassium 3.9 mmol/L (3.5-5.1); Sodium 138 mmol/L (136-145); Total Protein 7.2 g/dL (5.7-8.2)
--- NOTE | 2025-08-24 14:50 | DI.RAD_ITS ---
Exam(s) XR TOE RT GREAT EXAM: XR TOE RT GREAT CLINICAL HISTORY: infection, eval osteo. TECHNIQUE: 2D digital imaging was performed. COMPARISON: CR XR TOE LT GREAT from 02/28/2022 FINDINGS: BONES: No acute fracture is present. No bony destructive lesion is seen. JOINTS: No dislocation present. Minimal degenerative changes. SOFT TISSUE: Soft tissue swelling at the great toe. Soft tissue defect distally. No foreign body. IMPRESSION: Soft tissue swelling and distal ulcer at the great toe. No evidence of osteomyelitis. DATA REPOSITORY: RADIATION DOSE DELIVERED:
--- NOTE | 2025-08-24 14:50 | DI.RAD_ITS ---
Exam(s) XR TOE LT GREAT EXAM: XR TOE LT GREAT CLINICAL HISTORY: ulcer, eval osteo. TECHNIQUE: 2D digital imaging was performed. Three views. COMPARISON: CR XR TOE RT GREAT from 08/24/2025 FINDINGS: BONES: No acute fracture is present. No bony destructive lesion is seen. JOINTS: No dislocation present. Minimal degenerative changes. SOFT TISSUE: Swelling at great toe. No foreign body or abnormal gas collection. IMPRESSION: Soft tissue swelling. No evidence of acute fracture, dislocation, or subluxation. DATA REPOSITORY: RADIATION DOSE DELIVERED:
[2025-08-24] MEDS: MAGNESIUM SULFATE 2 GM/50 ML BAG IV_INF (15:27)
[2025-08-24] MEDS: Lactated Ringers 1,000 ML 1000 ML IV (15:27)
== END 2025-08-24 17:14 | disposition home or self-care (01) ==
PROVIDERS: Emergency Provider Emergency Medicine; PCP Family Medicine
DX: L97.519 Non-pressure chronic ulcer of other part of right foot with unspecified severity (principal); L97.529 Non-pressure chronic ulcer of other part of left foot with unspecified severity; L03.032 Cellulitis of left toe
CPT/HCPCS: 36415; 80053; 85652; 87040; 96365; 96375; 99284; 73660; 83605; 83735; 85025; 86140; J2405; J3475